=== PATIENT | male | born 1980 | race Caucasian/White ===

== ENCOUNTER → 2016-05-16 | Outpatient (CLI) | payer OTHER ==
[~2016-05-16] MED LIST: EFAVTAB PO; FLVHFA44 INH; METO-157 PO
[2016-05-16 11:59] LABS: BASO % 0.5 %; BASO ABS # 0.03 K/uL (0-0.2); COMPLETE YES; EOS % 2.7 %; HEMATOCRIT 48.1 % (42-52); IG% 0.2 %; LYMPH % 30.3 %; LYMPH ABS # 1.93 K/uL (1.2-3.4); MEAN CELL VOLUME 87.5 fL (80-100); MEAN CORPUSCULAR HGB CONC 34.3 g/dl (32-36); MEAN PLATELET VOLUME 10.4 fL (7.4-10.4); MONO % 4.7 %; NEUT % 61.6 %; PLATELET COUNT 207 K/uL (130-400); WHITE BLOOD COUNT 6.38 K/uL (4.8-10.8)
[2016-05-16 12:07] LABS: ALT/SGPT 78 U/L (12-78); AST/SGOT 40 U/L (15-37); BLOOD UREA NITROGEN 9 mg/dl (7-18); BUN/CREATININE RATIO 7.1 (10-20); CALCIUM 8.9 mg/dl (8.5-10.1); CARBON DIOXIDE 28 mmol/L (21-32); CHLORIDE 106 mmol/L (98-107); GLUCOSE 96 mg/dl (70-99); POTASSIUM 3.6 mmol/L (3.5-5.1); SODIUM 141 mmol/L (136-145)
[2016-05-16 12:10] LABS: ALB/GLOB RATIO 1.3 (0.9-2); ALKALINE PHOSPHATASE 141 U/L (45-117); CHOLESTEROL 175 mg/dl (0-200); CHOLESTEROL/HDL RATIO 4.6; HDL CHOLESTEROL 38 mg/dl; LDL CHOLESTEROL CALCULATED 96 mg/dl; TRIGLYCERIDES 207 mg/dl (0-150); VERY LOW DENSITY LIPOPROT CALC 41 mg/dl
[2016-05-19 06:38] LABS: LSP % CELLS ANALYZED CD4 35 % (30-61); LSP ABSOLUTE CT CD4 612 cells/uL (490-1740); LSP LYMPHOCYTES ABSOLUTE 1769 cells/uL (850-3900)
== END | disposition home or self-care (01) ==
LOC: C.LAB1850 10:49
PROVIDERS: ATTEND Internal Medicine Infectious Disease
DX: B20 Human immunodeficiency virus [HIV] disease (principal)

== ENCOUNTER → 2016-08-28 | Day surgery (SDC) | payer OTHER ==
[~2016-08-28] VITALS: Ht 182.9 cm; Wt 102.3 kg
[~2016-08-28] MED LIST changes: +LIDOCAINE HCL 2% 2 ML VIAL (20MG/ML) ONE; +PROPOFOL IV EMULSION 10 MG/ML 20 ML VIAL IV ONE
[2016-08-28 09:32] VITALS: Ht 182.9 cm; Wt 102.3 kg
--- NOTE | 2016-08-28 10:07 | Endo History and Physical ---
History & Physical Date of Service: August 28, 2016. Chief Complaint: dysphagia Referring Physician: no doctor assigned History of Present Illness dysphagia Past Surgical History Hx Cardiac Surgery: No Hx Internal Defibrillator: No Hx Pacemaker: No Hx Abdominal Surgery: Yes (gallbladder) Hx of Implantable Prosthesis: No Hx Post-Op Nausea and Vomiting: No Hx Cancer Surgery: No Hx Thoracic Surgery: No Hx Orthopedic: Yes (arthroscopy of knee) Hx Urinary Tract Surgery: No Social History Smoking Status: Never Smoker Hx Substance Use: No Hx Alcohol Use: No Allergies Coded Allergies: Naproxen (Verified Allergy, Mild, 08/28/16) Current Medications Reported Home Medications Medications Dose Route/Sig Max Daily Dose Days Date Category Atripla (Fxlhqbxre-Hmalywonngfxd-Qqdace) 1 Tab Tab 1 Tab PO HS 07/26/15 Reported Vital Signs Weight (Kilograms): 102.27 Height (Feet): 6 Height (Inches): 0 Date Time Temp Pulse Resp B/P Pulse Ox O2 Delivery O2 Flow Rate FiO2 08/28/16 09:43 36.6 88 20 156/99 97 Room Air Physical Exam General Appearance: no apparent distress Respiratory/Chest: Auscultation: breath sounds normal Cardiovascular: Heart Auscultation: RRR Abdomen: Bowel Sounds: normal Assessment and Plan EGD with dilation
--- NOTE | 2016-08-28 11:01 | Discharge Instructions ---
Endoscopy Patient Instructions Date / Procedure(s) Performed August 28, 2016. EGD Allergy Information Coded Allergies: Naproxen (Verified Allergy, Mild, 08/28/16) Discharge Date / Findings August 28, 2016. 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 - Do not drink alcohol the day of the procedure. - Do not drive a car or operate machinery until the day after the procedure. - Do not make any important decisions or sign important papers in 24 hours after the procedure. Following Day: - Return to full activity which may include returning to work/school. Diet Start your diet with liquids and light foods (jello, soup, juice, toast). Then eat your usual diet if not nauseated. Treatment For Common After Affects For mild abdominal pain, bloating, or excessive gas: - Rest - Eat lightly - Lie on right side Follow-Up Information Follow-up with no doctor assigned as scheduled Anesthesia Information What You Should Know You have had a procedure that required some medicine to reduce anxiety and discomfort. This treatment is called moderate sedation. After receiving the treatment, you may be sleepy, but you will be able to breathe on your own. The effects of the treatment may last for several hours. Follow these instructions along with Activity/Diet recommendations noted above: * Do NOT do anything where dizziness or clumsiness would be dangerous. * Rest quietly at home today, then you can be up and about tomorrow. * Have a responsible person stay with you the rest of today. * You may have had an I.V. today. If so, you may take the dressing off later today. Recommendations Call your doctor if: * Trouble breathing * Continuous vomiting for more than 24 hours * Temperature above 101 degrees * Severe abdominal pain or bloating * Pain not relieved by pain medicine ordered * There is increased drainage or redness from any incision * A large amount of rectal bleeding greater than 2-3 tablespoons. (If you had a polyp/s removed or have hemorrhoids, a small amount of blood - from the rectum is to be expected.) * You have any unanswered questions or concerns. IN THE EVENT OF A SERIOUS EMERGENCY, GO TO THE NEAREST EMERGENCY ROOM Your discharge instructions were prepared by provider Dionicio Choi. Patient Instructions Signature Page Saturnino Schmitz Patient (or Guardian) Signature/Date: I have read and understand the instructions given to me by my caregivers. Caregiver/RN/Doctor Signature/Date: The above-named patient and/or guardian has received patient instructions on this date. + Original Patient Signature Page (only) stays with chart. Please make copy for patient.
--- NOTE | 2016-08-28 11:04 | GI REPORT ---
Procedure Date: 08/28/2016 10:00 AM Procedure: Upper GI endoscopy Indications: Dysphagia Medicines: See the Anesthesia note for documentation of the administered medications Complications: No immediate complications. Estimated Blood Loss: Estimated blood loss: none. Procedure: Pre-Anesthesia Assessment: - ASA Grade Assessment: II - A patient with mild systemic disease. After obtaining informed consent, the endoscope was passed under direct vision. Throughout the procedure, the patient's blood pressure, pulse, and oxygen saturations were monitored continuously. The scope was introduced through the mouth, and advanced to the second part of duodenum. The upper GI endoscopy was accomplished without difficulty. The patient tolerated the procedure well. Findings: There were faint rings in the lower esophagus. The Z-line was found 42 cm from the incisors. There was a moderately tight stricture at the GE junction. There was moderate erythema and 2 erosions at the GE junction consistent with reflux. The stomach and small intestine were normal. A wire was placed and the scope was withdrawn. A 16 mm, 17mm, and 18 mm dilator was passed over the stricture with adequate trauma. Impression: - GE junction stricture, dilated. Recommendation: - BID PPI. Precautions for pill esophagitis. - Discharge patient to home. - Repeat EGD with dilation next week. Dionicio Royal M.D. Dionicio Royal MD 08/28/2016 11:05:33 AM This report has been signed electronically. Note Initiated On: 08/28/2016 10:00 AM I attest to the content of the Intraoperative Record and orders documented therein, exceptions below
[2016-08-28 11:11] VITALS: BP 138/95; PULSE 82; O2SAT 97
--- NOTE | 2016-08-28 11:19 | Anesthesiology Progress Note ---
Anesthesia Post Op Note Date & Time August 28, 2016 at 11:19 Vital Signs Pain Intensity: 0 Vital Signs Past 12 Hours Date Time Temp Pulse Resp B/P Pulse Ox O2 Delivery O2 Flow Rate FiO2 08/28/16 11:11 82 20 138/95 97 Room Air 08/28/16 10:55 88 20 141/95 96 Room Air 08/28/16 10:41 86 20 119/69 95 Room Air 08/28/16 09:43 36.6 88 20 156/99 97 Room Air Notes Mental Status: alert / awake / arousable, participated in evaluation Pt Amnestic to Procedure: Yes Nausea / Vomiting: adequately controlled Pain: adequately controlled Airway Patency, RR, SpO2: stable & adequate BP & HR: stable & adequate Hydration State: stable & adequate Anesthetic Complications: no major complications apparent
== END | disposition home or self-care (01) ==
LOC: C.GI 09:19
PROVIDERS: ATTEND Internal Medicine Gastroenterology
DX: R13.10 Dysphagia, unspecified (principal); K22.2 Esophageal obstruction; K22.8 Other specified diseases of esophagus; K22.10 Ulcer of esophagus without bleeding; Z98.890 Other specified postprocedural states

== ENCOUNTER → 2016-10-28 | Outpatient (CLI) | payer OTHER ==
[~2016-10-28] MED LIST changes: -LIDOCAINE HCL 2% 2 ML VIAL (20MG/ML) ONE; -PROPOFOL IV EMULSION 10 MG/ML 20 ML VIAL IV ONE
[2016-10-28 12:33] LABS: BASO % 0.4 %; BASO ABS # 0.03 K/uL (0-0.2); COMPLETE YES; EOS % 4.6 %; IG% 0.1 %; LYMPH % 36.1 %; LYMPH ABS # 2.44 K/uL (1.2-3.4); MEAN CELL VOLUME 88.3 fL (80-100); MEAN CORPUSCULAR HEMOGLOBIN 30.1 pg (25-34); MEAN CORPUSCULAR HGB CONC 34.1 g/dl (32-36); MEAN PLATELET VOLUME 10.3 fL (7.4-10.4); MONO % 5.9 %; NEUT % 52.9 %; PLATELET COUNT 219 K/uL (130-400); RED BLOOD COUNT 5.55 M/uL (4.7-6.1); WHITE BLOOD COUNT 6.76 K/uL (4.8-10.8)
[2016-10-28 12:45] LABS: ALT/SGPT 91 U/L (12-78); BLOOD UREA NITROGEN 11 mg/dl (7-18); BUN/CREATININE RATIO 9.5 (10-20); CALCIUM 9.5 mg/dl (8.5-10.1); CARBON DIOXIDE 26 mmol/L (21-32); CHLORIDE 107 mmol/L (98-107); CHOLESTEROL 199 mg/dl (0-200); GLUCOSE 103 mg/dl (70-99); SODIUM 141 mmol/L (136-145)
[2016-10-28 12:48] LABS: ALB/GLOB RATIO 1.2 (0.9-2); ALKALINE PHOSPHATASE 137 U/L (45-117); AST/SGOT 47 U/L (15-37); CHOLESTEROL/HDL RATIO 5.9; HDL CHOLESTEROL 34 mg/dl; LDL CHOLESTEROL CALCULATED 119 mg/dl; TRIGLYCERIDES 229 mg/dl (0-150); VERY LOW DENSITY LIPOPROT CALC 46 mg/dl
[2016-11-03 20:36] LABS: LSP % CELLS ANALYZED CD4 34 % (30-61); LSP ABSOLUTE CT CD4 790 cells/uL (490-1740); LSP LYMPHOCYTES ABSOLUTE 2341 cells/uL (850-3900)
== END | disposition home or self-care (01) ==
LOC: C.LAB1850 10:25
PROVIDERS: ATTEND Internal Medicine Infectious Disease
DX: B20 Human immunodeficiency virus [HIV] disease (principal)

== ENCOUNTER → 2017-01-03 | Day surgery (SDC) | payer OTHER ==
[2017-01-02 07:55] VITALS: Ht 182.9 cm; Wt 102.3 kg
[~2017-01-03] VITALS: Ht 182.9 cm; Wt 102.3 kg
[~2017-01-03] MED LIST changes: +LIDOCAINE HCL 2% 2 ML VIAL (20MG/ML) ONE; +PROPOFOL IV EMULSION 10 MG/ML 20 ML VIAL IV ONE; +SODIUM CHLORIDE 0.9% 500ML 500 ML IV ONE
--- NOTE | 2017-01-03 12:09 | Endo History and Physical ---
History & Physical Date of Service: Jan 03, 2017. Chief Complaint: dysphagia Referring Physician: Dr. Martín Medina History of Present Illness Dysphagia Past Surgical History Hx Cardiac Surgery: No Hx Internal Defibrillator: No Hx Pacemaker: No Hx Abdominal Surgery: Yes (gallbladder) Hx Post-Op Nausea and Vomiting: No Hx Cancer Surgery: No Hx Thoracic Surgery: No Hx Orthopedic: Yes (arthroscopy of knee) Hx Urinary Tract Surgery: No Family History None Social History Smoking Status: Never Smoker Hx Substance Use: No Hx Alcohol Use: No Allergies Coded Allergies: Naproxen (Verified Allergy, Mild, HEART RACED A LITTLE BIT, 01/02/17) Current Medications Reported Home Medications Medications Dose Route/Sig Max Daily Dose Days Date Category Flovent Hfa (Fluticasone Propionate) 120 Puffs/5280 Mcg Aero 4 Puffs INH BID 01/02/17 Reported Reglan (Metoclopramide HCl) 10 Mg Tab 10 Mg PO QAM 01/02/17 Reported Atripla (Ftusvwzel-Fhthogzwxdwch-Zjuekd) 1 Tab Tab 1 Tab PO HS 07/26/15 Reported Vital Signs Weight (Kilograms): 102.27 Height (Feet): 6 Height (Inches): 0 Date Time Temp Pulse Resp B/P (MAP) Pulse Ox O2 Delivery O2 Flow Rate FiO2 01/03/17 11:37 36.7 84 16 136/84 (101) 95 Room Air Physical Exam General Appearance: WD/WN, no apparent distress Respiratory/Chest: Auscultation: breath sounds normal Cardiovascular: Heart Auscultation: RRR Abdomen: Inspection & Palpation: soft Assessment and Plan Dysphagia - EGD
--- NOTE | 2017-01-03 13:05 | GI REPORT ---
Procedure Date: 01/03/2017 12:09 PM Procedure: Upper GI endoscopy Indications: Dysphagia; pt on BID PPI and Flovent 4 puffs BID. Medicines: See the Anesthesia note for documentation of the administered medications Complications: No immediate complications. Estimated Blood Loss: Estimated blood loss: none. Procedure: Pre-Anesthesia Assessment: - ASA Grade Assessment: III - A patient with severe systemic disease. After obtaining informed consent, the endoscope was passed under direct vision. Throughout the procedure, the patient's blood pressure, pulse, and oxygen saturations were monitored continuously. The Scope was introduced through the mouth, and advanced to the second part of duodenum. The upper GI endoscopy was accomplished without difficulty. Findings: There was stigmata of eosinophilic esophagitis in the lower esophagus, with furrows, rings, and white plaques. There was a ring at the GE junction at 40 cm. There was a small hiatal hernia. The stomach and duodenum were normal. A wire was placed and the scope was withdrawn. A 16 mm and 18 mm dilator was placed over the wire with an appropriate tear at the ring in the GEJ. Biopsies taken from lower esophagus. Recommendation: - If biopsies show persistent eosinophilia, consider increasing Flovent. - Discharge patient to home. Dionicio Royal M.D. Dionicio Royal MD 01/03/2017 1:05:06 PM This report has been signed electronically. Note Initiated On: 01/03/2017 12:09 PM I attest to the content of the Intraoperative Record and orders documented therein, exceptions below
--- NOTE | 2017-01-03 13:08 | Discharge Instructions ---
Endoscopy Patient Instructions Date / Procedure(s) Performed Jan 03, 2017. EGD Allergy Information Coded Allergies: Naproxen (Verified Allergy, Mild, HEART RACED A LITTLE BIT, 01/02/17) Discharge Date / Findings Jan 03, 2017. Eosinophilic esophagitis. Ring. Dilated, biopsied. Provider Instructions Activity Restrictions - No exercising or heavy lifting for 24 hours. - Do not drink alcohol the day of the procedure. - Do not drive a car or operate machinery until the day after the procedure. - Do not make any important decisions or sign important papers in 24 hours after the procedure. Following Day: - Return to full activity which may include returning to work/school. Diet Start your diet with liquids and light foods (jello, soup, juice, toast). Then eat your usual diet if not nauseated. Treatment For Common After Affects For mild abdominal pain, bloating, or excessive gas: - Rest - Eat lightly - Lie on right side Follow-Up Information Follow-up with Dr. Martín Medina as scheduled Anesthesia Information What You Should Know You have had a procedure that required some medicine to reduce anxiety and discomfort. This treatment is called moderate sedation. After receiving the treatment, you may be sleepy, but you will be able to breathe on your own. The effects of the treatment may last for several hours. Follow these instructions along with Activity/Diet recommendations noted above: * Do NOT do anything where dizziness or clumsiness would be dangerous. * Rest quietly at home today, then you can be up and about tomorrow. * Have a responsible person stay with you the rest of today. * You may have had an I.V. today. If so, you may take the dressing off later today. Recommendations Call your doctor if: * Trouble breathing * Continuous vomiting for more than 24 hours * Temperature above 101 degrees * Severe abdominal pain or bloating * Pain not relieved by pain medicine ordered * There is increased drainage or redness from any incision * A large amount of rectal bleeding greater than 2-3 tablespoons. (If you had a polyp/s removed or have hemorrhoids, a small amount of blood - from the rectum is to be expected.) * You have any unanswered questions or concerns. IN THE EVENT OF A SERIOUS EMERGENCY, GO TO THE NEAREST EMERGENCY ROOM Your discharge instructions were prepared by provider Dionicio Choi. Patient Instructions Signature Page Saturnino Schmitz Patient (or Guardian) Signature/Date: I have read and understand the instructions given to me by my caregivers. Caregiver/RN/Doctor Signature/Date: The above-named patient and/or guardian has received patient instructions on this date. + Original Patient Signature Page (only) stays with chart. Please make copy for patient.
[2017-01-03 13:28] VITALS: BP 111/73; PULSE 82; O2SAT 95
--- NOTE | 2017-01-03 14:20 | Anesthesiology Progress Note ---
Anesthesia Post Op Note Date & Time Jan 03, 2017 at 14:20 Vital Signs Pain Intensity: 0 Vital Signs Past 12 Hours Date Time Temp Pulse Resp B/P (MAP) Pulse Ox O2 Delivery O2 Flow Rate FiO2 01/03/17 13:28 82 16 111/73 (86) 95 Room Air 01/03/17 13:13 86 16 104/68 (80) 96 Room Air 01/03/17 12:58 99 16 115/68 (84) 92 Room Air 01/03/17 11:37 36.7 84 16 136/84 (101) 95 Room Air Notes Mental Status: alert / awake / arousable, participated in evaluation Pt Amnestic to Procedure: Yes Nausea / Vomiting: adequately controlled Pain: adequately controlled Airway Patency, RR, SpO2: stable & adequate BP & HR: stable & adequate Hydration State: stable & adequate Anesthetic Complications: no major complications apparent
== END | disposition home or self-care (01) ==
LOC: C.GI 11:12
PROVIDERS: ATTEND Internal Medicine Gastroenterology
DX: R13.10 Dysphagia, unspecified (principal); K44.9 Diaphragmatic hernia without obstruction or gangrene; B20 Human immunodeficiency virus [HIV] disease; Z98.890 Other specified postprocedural states; Z68.31 Body mass index [BMI] 31.0-31.9, adult

== ENCOUNTER → 2017-04-10 | Outpatient (CLI) | payer OTHER ==
[~2017-04-10] MED LIST changes: -LIDOCAINE HCL 2% 2 ML VIAL (20MG/ML) ONE; -PROPOFOL IV EMULSION 10 MG/ML 20 ML VIAL IV ONE; -SODIUM CHLORIDE 0.9% 500ML 500 ML IV ONE
[2017-04-10 11:26] LABS: BASO % 0.5 %; BASO ABS # 0.04 K/uL (0-0.2); EOS % 7.5 %; EOS ABS # 0.64 K/uL (0-0.5); HEMOGLOBIN 16.8 g/dL (14.0-18.0); IG# 0.02 K/uL (0.00-0.02); LYMPH % 27.6 %; LYMPH ABS # 2.35 K/uL (1.2-3.4); MEAN CELL VOLUME 88.2 fL (80-100); MEAN CORPUSCULAR HEMOGLOBIN 30.9 pg (25-34); MEAN PLATELET VOLUME 10.6 fL (7.4-10.4); MONO % 6.3 %; MONO ABS # 0.54 K/uL (0.11-0.59); NEUT % 57.9 %; NEUT ABS # 4.92 K/uL (1.4-6.5); PLATELET COUNT 212 K/uL (130-400); RED CELL DISTRIBUTION WIDTH CV 13.2 % (11.5-14.5); WHITE BLOOD COUNT 8.51 K/uL (4.8-10.8)
[2017-04-10 15:52] LABS: ALBUMIN 4.3 gm/dl (3.4-5.0); ALKALINE PHOSPHATASE 138 U/L (45-117); AST/SGOT 55 U/L (15-37); BLOOD UREA NITROGEN 10 mg/dl (7-18); CALCIUM 9.7 mg/dl (8.5-10.1); CARBON DIOXIDE 28 mmol/L (21-32); CHOLESTEROL 184 mg/dl (0-200); CREATININE 1.13 mg/dl (0.60-1.40); GLUCOSE 89 mg/dl (70-99); SODIUM 139 mmol/L (136-145); TOTAL PROTEIN 8.3 gm/dl (6.4-8.2)
[2017-04-10 15:55] LABS: ALT/SGPT 99 U/L (12-78); LDL CHOLESTEROL CALCULATED 91 mg/dl
[2017-04-12 20:33] LABS: LSP % CELLS ANALYZED CD4 35 % (30-61); LSP ABSOLUTE CT CD4 811 cells/uL (490-1740)
== END | disposition home or self-care (01) ==
LOC: C.LAB 10:15
PROVIDERS: ATTEND Internal Medicine Infectious Disease
DX: B20 Human immunodeficiency virus [HIV] disease (principal)

== ENCOUNTER 2019-12-12 10:11 | Inpatient (IN) ==
[2019-12-12] MEDS ORDERED: KETOROLAC 30 MG/ML VIAL IV ONE (11:12)
[2019-12-12] MEDS ORDERED: HYDROmorphone INJ 1 MG/ML SYRINGE IV STA (11:12)
[2019-12-12] MEDS ORDERED: SODIUM CHLORIDE 0.9% 1000ML 2,000 ML IV ONE (11:12)
[2019-12-12] MEDS ORDERED: ONDANSETRON INJ 2 MG/ML 2 ML VIAL IV STA (11:12)
[2019-12-12 11:19] LABS: Hemoglobin 15.9 g/dL (14.0-18.0); White Blood Count 10.63 K/uL (4.8-10.8)
[2019-12-12 11:20] LABS: Eosinophils # (auto) 0.06 K/uL (0-0.5); Eosinophils % (auto) 0.6 %; Hematocrit (blood only) 46.7 % (42-52); Immature Granulocytes # (auto) 0.02 K/uL (0.00-0.02); Immature Granulocytes % (auto) 0.2 %; Lymphocytes % (auto) 11.3 %; Mean Corpuscular Hemoglobin 31.2 pg (25-34); Mean Corpuscular Volume 91.6 fL (80-100); Mean Platelet Volume 10.4 fL (7.4-10.4); Monocytes # (auto) 0.56 K/uL (0.11-0.59); Monocytes % (auto) 5.3 %; Neutrophils # (auto) 8.79 K/uL (1.4-6.5); Neutrophils % (auto) 82.6 %; Platelet Count 206 K/uL (130-400); RDW Standard Deviation 43.9 fL (36.4-46.3)
[2019-12-12 11:26] LABS: BUN Creatinine Ratio 7.3 (10-20); Creatinine Clr Calc Pharmacy 69.2 ml/min; Est GFR (African American) 54.8; Est GFR (Non-African American) 47.3; Potassium 4.2 mmol/L (3.5-5.1)
--- NOTE | 2019-12-12 11:28 | Emergency Department Note ---
History of Present Illness General Chief complaint: Kidney Stone Stated complaint: RT SIDED KIDNEY STONE Time Seen by Provider: 12/12/19 11:01 History of Present Illness Maximum Pain Intensity: 8 This patient is a 39-year-old male who presents emergency department complaining of worsening right-sided, sharp, stabbing abdominal pain that is worse with any movement. The patient was seen in the emergency department last night and diagnosed with a right-sided kidney stone. He was sent home with oxycodone, which has not been helping with the pain. The patient also reports feeling clam my and having one episode of vomiting this morning. He denies any hematuria. No history of kidney stones. Home Medications Home Medications Medication Instructions Recorded Confirmed Type sildenafil 50 mg tablet 50 mg PO DAILY PRN #10 tab 01/26/19 12/12/19 Rx dextroamphetamine-amphetamine ER 20 mg PO DAILY #30 cap 03/09/19 12/12/19 Rx 20 mg 24hr capsule,extend release bictegravir 50 mg-emtricitabine 1 tab PO DAILY #90 tab 06/02/19 12/12/19 Rx 200 mg-tenofovir alafenam 25 mg tablet adalimumab [Humira Pen] 40 mg SUBCUT UD 12/12/19 12/12/19 History ondansetron 4 mg PO Q4H PRN #8 tab 12/12/19 12/12/19 Rx oxycodone 5 - 10 mg PO Q4H PRN #14 tab 12/12/19 12/12/19 Rx Allergies Allergy/AdvReac Type Severity Reaction Status Date / Time naproxen Allergy Mild HEART Verified 12/12/19 00:35 RACED A LITTLE BIT Past Med/Surg History Medical History HIV (human immunodeficiency virus infection) Social History Smoking Status: Never smoker Preferred Language: Uzbek Feels Safe at Home: Yes Review of Systems A total of 10 systems reviewed and were otherwise negative Physical Exam Vital Signs Vital Signs - 24 hr 12/12/19 10:29 12/12/19 10:47 12/12/19 10:49 Temperature 36.6 C Temperature Source Oral Pulse Rate 91 H 87 89 Pulse Rhythm Regular Pulse Strength Normal Respiratory Rate 18 22 20 Respiratory Effort / Characteristics Non-Labored Spontaneous Respiratory Depth Normal Respiratory Pattern Regular Blood Pressure 139/66 127/92 Blood Pressure Mean 90 107 Blood Pressure Position Sitting Pulse Oximetry 97 Oxygen Delivery Method Room Air Sepsis Recent Fever Within 48 Hours No Sepsis New/Unexplained Change in Mental Status N/A Sepsis Action Taken by Nursing No Action Required 12/12/19 11:00 12/12/19 11:01 12/12/19 12:09 Temperature Temperature Source Pulse Rate 79 79 89 Pulse Rhythm Pulse Strength Respiratory Rate 15 22 15 Respiratory Effort / Characteristics Respiratory Depth Respiratory Pattern Blood Pressure 141/100 H 124/78 Blood Pressure Mean 110 90 Blood Pressure Position Pulse Oximetry Oxygen Delivery Method Sepsis Recent Fever Within 48 Hours Sepsis New/Unexplained Change in Mental Status Sepsis Action Taken by Nursing 12/12/19 12:10 12/12/19 12:30 12/12/19 12:31 Temperature Temperature Source Pulse Rate 85 85 97 H Pulse Rhythm Pulse Strength Respiratory Rate 20 16 16 Respiratory Effort / Characteristics Respiratory Depth Respiratory Pattern Blood Pressure 121/74 Blood Pressure Mean 87 Blood Pressure Position Pulse Oximetry Oxygen Delivery Method Sepsis Recent Fever Within 48 Hours Sepsis New/Unexplained Change in Mental Status Sepsis Action Taken by Nursing 12/12/19 12:59 12/12/19 13:01 12/12/19 13:30 Temperature Temperature Source Pulse Rate 91 H 88 83 Pulse Rhythm Pulse Strength Respiratory Rate 21 22 20 Respiratory Effort / Characteristics Respiratory Depth Respiratory Pattern Blood Pressure 142/93 H 122/76 Blood Pressure Mean 109 88 Blood Pressure Position Pulse Oximetry Oxygen Delivery Method Sepsis Recent Fever Within 48 Hours Sepsis New/Unexplained Change in Mental Status Sepsis Action Taken by Nursing 12/12/19 13:31 12/12/19 14:00 12/12/19 14:01 Temperature Temperature Source Pulse Rate 85 93 H 79 Pulse Rhythm Pulse Strength Respiratory Rate 26 H 17 15 Respiratory Effort / Characteristics Respiratory Depth Respiratory Pattern Blood Pressure 117/96 Blood Pressure Mean 102 Blood Pressure Position Pulse Oximetry Oxygen Delivery Method Sepsis Recent Fever Within 48 Hours Sepsis New/Unexplained Change in Mental Status Sepsis Action Taken by Nursing 12/12/19 14:30 12/12/19 14:31 12/12/19 15:00 Temperature Temperature Source Pulse Rate 79 103 H 67 Pulse Rhythm Pulse Strength Respiratory Rate 23 21 Respiratory Effort / Characteristics Respiratory Depth Respiratory Pattern Blood Pressure 115/86 Blood Pressure Mean 94 Blood Pressure Position Pulse Oximetry Oxygen Delivery Method Sepsis Recent Fever Within 48 Hours Sepsis New/Unexplained Change in Mental Status Sepsis Action Taken by Nursing Constitutional WD/WN, vitals as above In obvious discomfort. Eyes EOM intact bilaterally ENMT external ear and nose normal, oropharynx normal Neck trachea midline Respiratory normal respiratory effort, lungs clear to auscultation Cardiovascular RRR, no murmur, no edema Gastrointestinal (Abdomen) normal bowel sounds, soft, nontender, no hepatosplenomegaly Tenderness palpation over the right lower quadrant without any guarding or rebound tenderness. Bowel sounds present in all 4 quadrants. Musculoskeletal no cyanosis or clubbing, extremities motor strength 5/5 Skin no rashes, warm and dry Neurologic Alert and oriented x3. No focal motor deficits. Psychiatric Acting appropriately Course Course Patient was seen and examined Vital signs including blood pressure were reviewed medications list was verified with patient Labs were obtained, and a saline lock was established Pain medications and imaging were ordered Upon reevaluation, the patient said that his pain was better, however he was still nauseated. He was ordered Phenergan for nausea. We reviewed his results. He voiced understanding and was comfortable with the disposition. The case was discussed with urology and the hospitalist. They kindly agreed to evaluate the patient for likely inpatient management. Consultations Consultation #1: Dr. العراقي Consultation #2: [facility] hospitalist Administered Medications Discontinued Medications Hydromorphone HCl (Hydromorphone Inj 1 Mg/Ml Syringe) 1 mg IV NOW STA Stop: 12/12/19 11:13 Last Admin: 12/12/19 11:21 Dose: 1 mg Documented by: [id number] Sodium Chloride (Nss 1000ml) 2,000 mls @ 999 mls/hr IV .Q2H1M ONE Stop: 12/12/19 13:12 Last Infusion: 12/12/19 13:22 Dose: 0 mls/hr Documented by: [id number] Admin: 12/12/19 11:20 Dose: 999 mls/hr Documented by: [id number] Promethazine HCl (Phenergan) 12.5 mg in 50.5 mls @ 202 mls/hr IV NOW STA Stop: 12/12/19 13:56 Last Infusion: 12/12/19 14:06 Dose: 0 mls/hr Documented by: [id number] Admin: 12/12/19 13:51 Dose: 202 mls/hr Documented by: [id number] Ketorolac Tromethamine (Ketorolac 30 Mg/Ml Vial) 30 mg IV NOW ONE Stop: 12/12/19 11:13 Last Admin: 12/12/19 11:20 Dose: 30 mg Documented by: [id number] Ondansetron HCl (Ondansetron Inj 2 Mg/Ml 2 Ml Vial) 4 mg IV NOW STA Stop: 12/12/19 11:13 Last Admin: 12/12/19 11:21 Dose: 4 mg Documented by: [id number] Pantoprazole Sodium (Pantoprazole 40 Mg Tab) 40 mg PO NOW STA Stop: 12/12/19 14:28 Last Admin: 12/12/19 14:41 Dose: 40 mg Documented by: [id number] Tamsulosin HCl (Tamsulosin Hcl 0.4 Mg Cap) 0.4 mg PO NOW ONE Stop: 12/12/19 14:05 Last Admin: 12/12/19 14:41 Dose: 0.4 mg Documented by: [id number] Medical Decision Making Medical Records Attestation: I reviewed the patient's medical records. Home Medications Current Medication List: was personally reviewed by me Laboratory Data Attestation: I reviewed the patient's lab results. Result diagrams: 12/12/19 10:45 12/12/19 10:45 Lab Results 12/12/19 12/12/19 12/12/19 Range/Units 10:45 10:45 12:49 WBC 10.63 (4.8-10.8) K/uL RBC 5.10 (4.7-6.1) M/uL Hgb 15.9 (14.0-18.0) g/dL Hct 46.7 (42-52) % MCV 91.6 (80-100) fL MCH 31.2 (25-34) pg MCHC 34.0 (32-36) g/dL RDW Std Deviation 43.9 (36.4-46.3) fL RDW Coeff of Juan Jose 13.0 (11.5-14.5) % Plt Count 206 (130-400) K/uL MPV 10.4 (7.4-10.4) fL Immature Gran % (Auto) 0.2 % Neut % (Auto) 82.6 % Lymph % (Auto) 11.3 % [place] % (Auto) 5.3 % Eos % (Auto) 0.6 % Baso % (Auto) 0.0 % Neut # (Auto) 8.79 H (1.4-6.5) K/uL Lymph # (Auto) 1.20 (1.2-3.4) K/uL [place] # (Auto) 0.56 (0.11-0.59) K/uL Eos # (Auto) 0.06 (0-0.5) K/uL Baso # (Auto) 0.00 (0-0.2) K/uL Immature Gran # (Auto) 0.02 (0.00-0.02) K/uL Sodium 142 (136-145) mmol/L Potassium 4.2 (3.5-5.1) mmol/L Chloride 108 H (98-107) mmol/L Carbon Dioxide 27 (21-32) mmol/L Anion Gap 7.0 (3-11) BUN 13 (7-18) mg/dl Creatinine 1.76 H (0.6-1.4) mg/dl Est Cr Clr Drug Dosing 69.2 ml/min Est GFR ( Amer) 54.8 Est GFR (Non-Af Amer) 47.3 BUN/Creatinine Ratio 7.3 L (10-20) Glucose 138 H (70-99) mg/dl Calcium 9.0 (8.5-10.1) mg/dl Urine Color Yellow Urine Appearance Clear (Clear) Urine pH 7.0 (4.5-7.5) Ur Specific [place] 1.013 (1.000-1.030) Urine Protein Negative (Negative) Urine Glucose (UA) Negative (Negative) Urine Ketones Trace H (Negative) Urine Blood 1+ H (Negative) Urine Nitrite Negative (Negative) Urine Bilirubin Negative (Negative) Urine Urobilinogen Negative (Negative) Ur Leukocyte Esterase Negative (Negative) Urine WBC (Auto) 1-5 (0-5) /hpf Urine RBC (Auto) 0-4 (0-4) /hpf U Hyaline Cast (Auto) 5-10 H (0-5) /lpf U Epithel Cells (Auto) 5-10 H (0-5) /lpf Urine Bacteria (Auto) Negative (Negative) Imaging Data Attestation: I personally reviewed and interpreted this imaging study as follows: Radiologist's Impression: X-ray KUB IMPRESSION: Unchanged positioning of the 5 mm right ureteral calculus projected over the transverse process of L2. ACT 112: Negative or not required by law. The above report was generated using voice recognition software. It may contain grammatical, syntax or spelling errors. Electronically signed by: Marvin Rodriguez M.D. 12/12/2019 11:37 AM Dictated: 12/12/19 1136 Transcribed: 12/12/[address] [facility] Narrative This patient is a 39-year-old male who presents the emergency department with ongoing flank pain. The patient was seen in the emergency department yesterday and diagnosed with a right-sided kidney stone. Unfortunately, the patient has not done well at home with oral medications. He continues to have pain and nausea. He was uncomfortable on exam. His vital signs were stable. His creatinine however has slightly elevated. Urine does not appear to be infected. After several rounds of pain medication and nausea medication, the patient was still not feeling much better. For this reason, urology in addition to the hospitalist were consulted. They will evaluate the patient for likely inpatient management. Impression & Plan Ureteral calculi Discharge Plan Visit Data Chief Complaint: Kidney Stone Stated Complaint: RT SIDED KIDNEY STONE ED Provider: Brian Rivero ED Midlevel Provider: Joanne Arguello Discharge Problem: Ureteral calculi Patient Disposition: Admitted As Inpatient Condition: Fair Discharge Instructions Interventions: ED Discharge Assessment Last Done: 12/12/19 15:29 Forms Stand Alone Forms: [employer] Prescriptions Prescriptions: No Action sildenafil [Viagra] 50 mg tablet 50 mg PO DAILY PRN (Reason: sexual activity) Qty: 10 RF: 0 Biktarvy 50-200-25 mg tablet 1 tab PO DAILY Qty: 90 RF: 3 dextroamphetamine-amphetamine [Adderall XR] 20 mg capsule,extended release 24hr 20 mg PO DAILY Qty: 30 RF: 0 Humira Pen 40 mg/0.8 mL pen injector kit 40 mg SUBCUT UD RF: 0 ondansetron 4 mg tablet,disintegrating 4 mg PO Q4H PRN (Reason: nausea and vomiting) Qty: 8 RF: 0 oxycodone 5 mg tablet 5 - 10 mg PO Q4H PRN (Reason: pain) Qty: 14 RF: 0 Referrals Referrals: Martín Medina DO [Primary Care Provider] -
--- NOTE | 2019-12-12 11:39 | XRay Report ---
KUB HISTORY: Follow up study in a patient with history of kidney stones Right ureteral stone COMPARISON: CT abdomen and pelvis 12/12/2019 FINDINGS: The bowel gas pattern is non-obstructive. There is no organomegaly. Unchanged 5 mm calculu s of the right ureter projected over the transverse process of L2. Renal shadows are obscured by kale l gas. Cholecystectomy. No pneumoperitoneum or pneumatosis. No fracture. IMPRESSION: Unchanged positioning of the 5 mm right ureteral calculus projected over the transverse process of L2 . ACT 112: Negative or not required by law. The above report was generated using voice recognition software. It may contain grammatical, syntax o r spelling errors. Electronically signed by: Marvin Rodriguez M.D. 12/12/2019 11:37 AM
[2019-12-12 13:07] LABS: Appearance Urine Clear (Clear); Bacteria Urine Automated Negative (Negative); Bilirubin Urine Negative (Negative); Blood Urine 1+ (Negative); Color Urine Yellow; Glucose Urine UA Negative (Negative); Ketones Urine Trace (Negative); Leukocyte Esterase Urine Negative (Negative); Nitrite Urine Negative (Negative); Protein Urine Negative (Negative); RBC Urine Automated 0-4 /hpf (0-4); Specific Gravity Urine 1.013 (1.000-1.030); Urobilinogen Urine Negative (Negative)
[2019-12-12] MEDS ORDERED: PROMETHAZINE 12.5 MG/50.5 ML BAG IV STA (13:42)
[2019-12-12] MEDS ORDERED: ACETAMINOPHEN 325 MG TAB PO PRN (14:00)
[2019-12-12] MEDS ORDERED: TAMSULOSIN HCL 0.4 MG CAP PO ONE (14:04)
--- NOTE | 2019-12-12 14:08 | History & Physical Report ---
Date of Service December 12, 2019 Assessment & Plan (1) Ureterolithiasis: Bilateral kidney stones with right hydronephrosis from the right ureteral stone -This is a male who presented to Emergency room on 12/11/2019 for right sided abdominal pain and subsequently found to have bilateral kidney stones with culprit cause of symptoms as the right ureteral stone causing mild hydronephrosis. Patient denies fevers at home and no other Gastrointestinal symptoms at that time. He was sent home from the ED on 12/11/2019 with analgesics so that he can pass the righter ureteral stone at home. But he returns to the ED on 12/12/2019 after vomiting. On review of systems, no chest pain, no shortness of breath, patient does not take any home inhalers recently, no dizziness. no headache. ED provider contacted [facility] urology. His urine analysis is negative for bacteria but since patient has history of HIV and may be eventually a candidate for cystoscopy with ureteral stent, hospitalist take will start empiric ceftriaxone. -12/11/2019 CT abdomen: Mild right-sided hydroureteronephrosis secondary to a 5 x 4 x 4 mm calculus of the proximal right ureter just distal to the ureteropelvic junction at the level of the superior endplate L3. Nonobstructing left nephrolithiasis. -KUB 12/12/2019 Unchanged positioning of the 5 mm right ureteral calculus projected over the transverse process of L2 -give IV fluids, and tamsulosin, strain the urine -ED provider contacted [facility] urology but likely no acute surgical interventions on 12/11/2001 so patient will be allowed a diet on 12/12/2019 and then NPO after midnight. start empiric ceftriaxone because of possibly urology procedure in a patient with HIV despite no bacteria in urine. will (2) Abdominal pain, right lower quadrant: -secondary to right ureteral kidney stone, pain started on 12/11/2019 -prn pain medications of acetaminophen, oxycodone, morphine based on pain severity -prn anti-emetics -12/11/2019 CT abdomen also had incidental findings -patient denies diarrhea or problems with bowel movements -continue protonics History of esophageal dilation -procedure performed on 12/09/[address] [facility] [address] Royal as outpatient. send blood culture on 12/12/2019 in context of malaise and history of HIV (3) HIV (human immunodeficiency virus infection): -diagnosed more than 10 years ago and follows with [facility] Infectious disease in [place] -continue home medication of Iwvmeegbedr-qadcsvyzwwpgk-phzdbszfx (50-5200-25 MG) Rheumatoid Arthritis -patient takes Humira subcutenously once every 14 days and lasy injection on 11/19/2019, follows with [facility] rheumatology clinic -patient no longer have been on methylprednisone or Nabumetone DVT prophylaxis: SCDs while in the hospital Full Code Status My colleague hospitalist Dr. Carreon will be managing the patient's health in the hospital starting on 12/13/2019 History of Present Illness This is a male who presented to Emergency room on 12/11/2019 for right sided abdominal pain and subsequently found to have bilateral kidney stones with culprit cause of symptoms as the right ureteral stone causing mild hydronephrosis. Patient denies fevers at home and no other Gastrointestinal symptoms at that time. He was sent home from the ED on 12/11/2019 with analgesics so that he can pass the righter ureteral stone at home. But he returns to the ED on 12/12/2019 after vomiting. On review of systems, no chest pain, no shortness of breath, patient does not take any home inhalers recently, no dizziness. no headache. ED provider contacted [facility]. His urine analysis is negative for bacteria but since patient has history of HIV and may be eventually a candidate for cystoscopy with ureteral stent, hospitalist take will start empiric ceftriaxone. Family History: patient denies family history of health problems Primary Care Provider: Martín Medina DO Allergies Allergy/AdvReac Type Severity Reaction Status Date / Time naproxen Allergy Mild HEART Verified 12/12/19 00:35 RACED A LITTLE BIT Home Medications Home Medications Medication Instructions Recorded Confirmed Type sildenafil 50 mg tablet 50 mg PO DAILY PRN #10 tab 01/26/19 12/12/19 Rx dextroamphetamine-amphetamine ER 20 mg PO DAILY #30 cap 03/09/19 12/12/19 Rx 20 mg 24hr capsule,extend release bictegravir 50 mg-emtricitabine 1 tab PO DAILY #90 tab 06/02/19 12/12/19 Rx 200 mg-tenofovir alafenam 25 mg tablet adalimumab [Humira Pen] 40 mg SUBCUT UD 12/12/19 12/12/19 History ondansetron 4 mg PO Q4H PRN #8 tab 12/12/19 12/12/19 Rx oxycodone 5 - 10 mg PO Q4H PRN #14 tab 12/12/19 12/12/19 Rx Past Med/Surg History Medical History HIV (human immunodeficiency virus infection) Social History Smoking Status: Never smoker Preferred Language: Welsh Feels Safe at Home: Yes Review of Systems Review of Systems: All systems reviewed & are unremarkable except as noted in Subjective Physical Exam Constitutional: comfortable Eyes: PERRL, conjunctivae normal, anicteric sclerae EOM intact bilaterally ENMT: external ear and nose normal, oropharynx normal Neck: trachea midline, no thyromegaly normal visual inspection Respiratory: normal respiratory effort, lungs clear to auscultation normal respiratory effort Cardiovascular: RRR, no murmur, no edema Gastrointestinal (Abdomen): Inspection/Auscultation: abdomen normal to inspection and normal bowel sounds Percussion/Palpation: abdomen soft Musculoskeletal: Head/Neck/Chest: normocephalic and head atraumatic Neurologic: PERRL, EOMI, accommodation nl, no face palsy, no dysarthria CN's II-XI intact bilaterally Psychiatric: A+Ox3, euthymic affect Results & Data Results & Data ([facility]) Vital Signs (Past 12 Hours) Vital Signs Temp Pulse Resp BP Pulse Ox 12/12/19 12:31 97 H 16 12/12/19 12:30 85 16 121/74 12/12/19 12:10 85 20 12/12/19 12:09 89 15 124/78 12/12/19 11:01 79 22 12/12/19 11:00 79 15 141/100 H 12/12/19 10:49 89 20 12/12/19 10:47 87 22 127/92 12/12/19 10:29 36.6 C 91 H 18 139/66 97 Code Status & VTE Plan VTE Prophylaxis Plan VTE Prophylaxis will be ordered: Yes
[2019-12-12] MEDS ORDERED: PANTOprazole 40 MG TAB PO STA (14:27)
[2019-12-12] MEDS: SODIUM CHLORIDE 0.9% 1000ML 1,000 ML IV SCH (17:26)
[2019-12-12] MEDS: cefTRIAXone SODIUM 2,000 MG in DEXTROSE 5% 50 ML IV SCH (17:26)
[2019-12-12] MEDS: MoRPHine SULFATE 2 MG/ML CARP IV PRN (18:58)
[2019-12-12] MEDS: PANTOprazole 40 MG TAB PO SCH (20:48)
[2019-12-13] MEDS: OXYCODONE HCL IR 5 MG TAB (IMMEDIATE RELEASE) PO PRN (00:13)
[2019-12-13] MEDS: MoRPHine SULFATE 2 MG/ML CARP IV PRN ×2 (01:16→07:43)
[2019-12-13] MEDS: SODIUM CHLORIDE 0.9% 1000ML 1,000 ML IV SCH ×2 (02:14→09:41)
[2019-12-13 07:41] LABS: Hemoglobin 13.5 g/dL (14.0-18.0); Mean Corpuscular Hemoglobin 29.7 pg (25-34); Mean Corpuscular Volume 92.3 fL (80-100); Mean Platelet Volume 10.3 fL (7.4-10.4); Platelet Count 186 K/uL (130-400); RDW Coefficient of Variation 13.2 % (11.5-14.5); RDW Standard Deviation 44.8 fL (36.4-46.3); Red Blood Count 4.55 M/uL (4.7-6.1); White Blood Count 6.57 K/uL (4.8-10.8)
[2019-12-13] MEDS: ONDANSETRON INJ 2 MG/ML 2 ML VIAL IV PRN (07:43)
[2019-12-13] MEDS: PANTOprazole 40 MG TAB PO SCH ×2 (07:44→20:42)
[2019-12-13 07:58] LABS: Mean Corpuscular Hgb Conc 32.1 g/dL (32-36)
[2019-12-13 08:20] LABS: Calcium 7.6 mg/dl (8.5-10.1); Creatinine Clr Calc Pharmacy 92.3 ml/min; Est GFR (African American) 77.7; Potassium 3.7 mmol/L (3.5-5.1)
[2019-12-13] MEDS: AMPHETAMINE ASP/SULF/DEXTRAMPH ER 20 MG CAP PO SCH (08:45)
[2019-12-13] MEDS ORDERED: BIKTARVY PO SCH (09:00)
--- NOTE | 2019-12-13 09:53 | Urology Consultation ---
Date of Consultation December 13, 2019 Assessment & Plan (1) Ureterolithiasis: 4 mm right proximal ureteral calculus Currently feeling okay Discussed options of immediate cystoscopy and stent placement with requirement for second surgery in 1 to 2 weeks to definitively treat the stone versus cystoscopy and ureteroscopy tomorrow with the hope of treating the stone in a solitary surgery He feels that his symptoms are well enough controlled but he would prefer to have a single surgery rather than 2 and would like to wait until tomorrow In the meantime we will continue to try to pass the stone spontaneously Continue IV fluid and pain control N.p.o. after midnight in preparation for the OR tomorrow History of Present Illness Attending Physician: Deepa Looney MD History of Present Illness 39-year-old male in generally good health who presented to the emergency room on Friday night secondary to severe right flank pain and associated nausea Found to have a small stone in the proximal ureter at that time He was discharged home but ultimately returned yesterday with a second round of severe pain He has continued to have intermittent symptoms overnight Currently feels his pain is under control with medications but is fearful of a repeat bout of severe discomfort No personal history of kidney stones No family history of kidney stones Allergies Allergy/AdvReac Type Severity Reaction Status Date / Time naproxen Allergy Mild HEART Verified 12/12/19 00:35 RACED A LITTLE BIT Home Medications Home Medications Medication Instructions Recorded Confirmed Type sildenafil 50 mg tablet 50 mg PO DAILY PRN #10 tab 01/26/19 12/12/19 Rx dextroamphetamine-amphetamine ER 20 mg PO DAILY #30 cap 03/09/19 12/12/19 Rx 20 mg 24hr capsule,extend release bictegravir 50 mg-emtricitabine 1 tab PO DAILY #90 tab 06/02/19 12/12/19 Rx 200 mg-tenofovir alafenam 25 mg tablet adalimumab [Humira Pen] 40 mg SUBCUT UD 12/12/19 12/12/19 History ondansetron 4 mg PO Q4H PRN #8 tab 12/12/19 12/12/19 Rx oxycodone 5 - 10 mg PO Q4H PRN #14 tab 12/12/19 12/12/19 Rx Patient History Medical History HIV (human immunodeficiency virus infection) Surgical History (Updated 12/13/19 @ 09:52 by Faustino العراقي MD) History of cholecystectomy Family History (Updated 12/13/19 @ 09:52 by Faustino العراقي MD) Denies family history of Kidney disease Social History Smoking Status: Never smoker Do You Dip or Chew Tobacco: No; Hx Alcohol Use: No Hx Substance Use: No Preferred Language: Estonian Communication Ability: Effective Primary Health Organisation Manager Required: No Beliefs That Will Affect Care: None Current Living Situation: Significant Other Other Information That Helps Us Care for You: No Feels Safe at Home: Yes Safety Concerns: Feels Safe At This Time Review of Systems Constitutional: no fever, no chills and no fatigue Eyes: no worsening vision Ear, Nose, Mouth, Throat: no facial pain and no pain with swallowing Respiratory: no cough and no dyspnea Cardiovascular: no chest pain and no palpitations Gastrointestinal: + abdominal pain and + nausea; no vomiting Genitourinary: + problem reported Musculoskeletal: no back pain Integumentary: no rash and no urticaria Neurologic: no gait abnormality and no unsteadiness Psychiatric: no behavioral changes and no depression Endocrine: no fatigue Physical Exam Physical Exam: Mild tenderness in the right flank Constitutional: well developed and well nourished Neck: neck nontender Respiratory: normal respiratory effort; no respiratory distress and does not use accessory muscles Cardiovascular: Rate/Rhythm: regular rate Vessels: radial pulses present Extremities: no edema Gastrointestinal (Abdomen): Inspection/Auscultation: abdomen normal to inspection Percussion/Palpation: abdomen soft; abdomen nontender and no g uarding Musculoskeletal: Head/Neck/Chest: normocephalic and head atraumatic Extremities: extremities normal to inspection Skin: no rashes and no lesions Trauma: no evidence of skin trauma Neurologic: awake; not obtunded Speech / Cognition: normal speech Motor/Sensory: no tremor Psychiatric: Orientation: alert and oriented x 3 Genitourinary: no CVA tenderness Lymphatic: no lymphadenopathy Results & Data ([facility]) Vital Signs (Past 12 Hours) Vital Signs Temp Pulse Resp BP Pulse Ox 12/13/19 07:39 36.7 C 72 18 107/69 95 12/12/19 23:01 36.6 C 92 H 16 122/64 95 PG Care Time/CCT Total # of Minutes Spent Total Time Spent with Patient: Total time spent is greater than 50% in coordination of care (as documented) at patient's floor/unit and/or counseling patient: Coding Level of Care Code 39572 Inpt Consult Level 4 Diagnoses Ureterolithiasis N20.1
--- NOTE | 2019-12-13 11:32 | Communication Note ---
Date of Service: December 13, 2019 Patient admitted with intractable right sided flank pain, CT abdomen pelvis on 12/11/2019 mild right-sided hydroureteronephrosis secondary to 5 and 14 to 4 mm calculus of the proximal right ureter X-ray of KUB on 12/12/2019 unchanged position a 5 mm right ureteric calculus projected over transverse process of L2 No sign of sepsis sepsis, patient is afebrile white count normal normal renal function Empiric antibiotic with IV Rocephin, urine culture ordered Patient's flank pain/abdominal pain has improved with current pain control No nausea vomiting Urology consulted, appreciate input-per Urology: pt feels that his symptoms at present well enough controlled -would like to wait for urologic procedure tomorrow Patient will be continue with IV fluids, to allow spontaneous passage of renal stone If patient becomes symptomatic increased right flank pain fever or chills or nausea or vomiting, unable to pass urine by tomorrow, may need urological procedure with cystoscopy and ureteric stent placed Patient is ordered diet today by urology, n.p.o. past midnight, in case patient needs urologic procedure tomorrow Hypernatremia/hyperchloremia Sodium 147 Change IV fluids to LR at 125 mL/h, patient is encouraged to increase p.o. liquid intake Repeat BMP in a.m. CODE STATUS full code DVT prophylaxis SCD and teds, avoid pharmacological anticoagulation as patient may need urological procedure Patient is encouraged to ambulate Disposition, expected to be discharged home when medically stable
[2019-12-13] MEDS: LACTATED RINGER'S 1,000 ML IV SCH ×2 (12:23→21:48)
--- NOTE | 2019-12-13 12:52 | Communication Note ---
Date of Service: December 13, 2019 ACUTE RENAL FAILURE: due to obstructed renal stone , poor PO intake , dehydration resolved renal function normalized with Iv hydration follow BMP HERPES LABIALIS INFECTION ; pt reports of symptoms of cold sore usually takes Valtrex ordered 1 gm Valtrex BID for 5 days ( given pts hx of HIV ) Deepa Looney MD
[2019-12-13] MEDS ORDERED: KETOROLAC TROMETHAMINE 15 MG/ML VIAL IV PRN (13:00)
[2019-12-13] MEDS: VALACYCLOVIR HCL 500 MG TABLET PO SCH ×2 (13:49→20:42)
[2019-12-13] MEDS: HYDROmorphone INJ 1 MG/ML SYRINGE IV PRN ×2 (13:51→18:37)
[2019-12-13] MEDS: cefTRIAXone SODIUM 2,000 MG in DEXTROSE 5% 50 ML IV SCH (17:33)
--- NOTE | 2019-12-13 18:16 | Hospitalist Progress Note ---
Date of Service December 13, 2019 Assessment & Plan (1) Ureterolithiasis: Patient admitted with intractable right sided flank pain, CT abdomen pelvis on 12/11/2019 mild right-sided hydroureteronephrosis secondary to 5 and 14 to 4 mm calculus of the proximal right ureter X-ray of K[facility] on 12/12/2019 unchanged position a 5 mm right ureteric calculus projected over transverse process of L2 No sign of sepsis sepsis, patient is afebrile white count normal normal renal function Empiric antibiotic with IV Rocephin, urine culture ordered Patient's flank pain/abdominal pain has improved with current pain control No nausea vomiting Urology consulted, appreciate input-per Urology: pt feels that his symptoms at present well controlled -would like to wait for urologic procedure tomorrow/allow for spontaneous passage of stone Patient will be continue with IV fluids, If patient becomes symptomatic increased right flank pain fever or chills or nausea or vomiting, unable to pass urine by tomorrow, may need urological procedure with cystoscopy and ureteric stent placed Patient is ordered diet today by urology, n.p.o. past midnight, in case patient needs urologic procedure tomorrow ACUTE RENAL FAILURE: due to obstructed renal stone , poor PO intake , dehydration resolved renal function normalized with Iv hydration follow BMP HERPES LABIALIS INFECTION ; pt reports of symptoms of cold sore usually takes Valtrex ordered 1 gm Valtrex BID for 5 days ( given pts hx of HIV ) Hypernatremia/hyperchloremia Sodium 147 Change IV fluids to LR at 125 mL/h, patient is encouraged to increase p.o. liquid intake Repeat BMP in a.m. CODE STATUS full code DVT prophylaxis SCD and teds, avoid pharmacological anticoagulation as patient may need urological procedure Patient is encouraged to ambulate Disposition, expected to be discharged home when medically stable Admission and Anticipated Discharge Date Admission Date: December 12, 2019 Subjective pt reports right flank pain has improved after getting pain meds comfortable with current pain medication regimen ( alternating between IV toradol and IV dilaudid afebrile no chills no nausea or vomiting , tolerating diet Review of Systems Review of Systems: All systems reviewed & are unremarkable except as noted in HPI & below Gastrointestinal: + problem reported (right flank pain with radiation to groin, requiring IV pain meds ); no nausea and no vomiting Physical Exam Constitutional: WD/WN, vitals as above no acute distress Eyes: PERRL, conjunctivae normal, anicteric sclerae ENMT: external ear and nose normal, oropharynx normal Neck: trachea midline, no thyromegaly Respiratory: normal respiratory effort, lungs clear to auscultation Cardiovascular: RRR, no murmur, no edema Gastrointestinal (Abdomen): Percussion/Palpation: + abdomen tender (right flank pain ) and abdomen soft Musculoskeletal: no cyanosis or clubbing, extremities motor strength 5/5 Skin: no rashes, warm and dry Neurologic: PERRL, EOMI, accommodation nl, no face palsy, no dysarthria Psychiatric: A+Ox3, euthymic affect Results & Data Results & Data ([facility]) Vital Signs (Past 12 Hours) Vital Signs Temp Pulse Resp BP Pulse Ox 12/13/19 16:22 36.7 C 76 16 137/80 94 12/13/19 07:39 36.7 C 72 18 107/69 95
[2019-12-13] MEDS: TAMSULOSIN HCL 0.4 MG CAP PO SCH (20:42)
[2019-12-14] MEDS: HYDROmorphone INJ 1 MG/ML SYRINGE IV PRN ×4 (00:07→17:23)
[2019-12-14] MEDS: LACTATED RINGER'S 1,000 ML IV SCH ×3 (05:33→17:47)
[2019-12-14] MEDS: ONDANSETRON INJ 2 MG/ML 2 ML VIAL IV PRN ×3 (08:19→23:51)
[2019-12-14] MEDS: VALACYCLOVIR HCL 500 MG TABLET PO SCH ×2 (08:23→20:35)
--- NOTE | 2019-12-14 09:13 | XRay Report ---
KUB HISTORY: rt sided renal stone COMPARISON: KUB 12/12/2019. FINDINGS: The bowel gas pattern is unremarkable. There are no dilated loops of small bowel to suggest an obstruction. No change in the 4 mm stone adjacent to the right L2 transverse process. This likel y resides within the proximal ureter. Prior cholecystectomy. A few punctate left renal calculi are al so noted. No pneumoperitoneum or pneumatosis. IMPRESSION: 1. No change in the proximal right ureteral stone. 2. Left-sided nephrolithiasis. ACT 112: Negative or not required by law. Electronically signed by: Cesar Hernandez M.D. 12/14/2019 9:12 AM
[2019-12-14 10:22] LABS: BUN Creatinine Ratio 5.4 (10-20); Calcium 9.2 mg/dl (8.5-10.1); Creatinine Clr Calc Pharmacy 95.9 ml/min; Est GFR (African American) 81.4; Est GFR (Non-African American) 70.2; Potassium 3.4 mmol/L (3.5-5.1)
[2019-12-14] MEDS ORDERED: POTASSIUM CHLORIDE / WTR 10 MEQ/100 ML PLCT IV ONE (10:45)
--- NOTE | 2019-12-14 10:50 | Communication Note ---
Date of Service: December 14, 2019 spoke with pt this AM , afebrile, no chills Vitals been stable experiencing flank pain , symptom controlled with IV pain meds became nauseous and episode of vomiting after returning from KUB /abdomen xray this AM ( possible due to narcotic pain meds,) Symptom resolved with IV Zofran X-ray of KUB: Today 12/14/2019: No change in the proximal right ureteric stone., left-sided nephrolithiasis BMP checked: Renal function normal, mildly low potassium possibly secondary to nausea vomiting Potassium replaced Urology following: Scheduled for ureteric stent placement later today Depending how patient recovers from the urologic procedure, If symptomatically much improved post ureteric stent, patient can be discharged later this afternoon Patient is agreeable and comfortable with discharge planning Deepa Looney MD
[2019-12-14] MEDS: PANTOprazole 40 MG TAB PO SCH (11:52)
[2019-12-14] MEDS: AMPHETAMINE ASP/SULF/DEXTRAMPH ER 20 MG CAP PO SCH (11:52)
[2019-12-14] MEDS ORDERED: PROMETHAZINE HCL 12.5 MG in SODIUM CHLORIDE 0.9% 50 ML IV PRN (12:16)
[2019-12-14] MEDS ORDERED: PROMETHAZINE HCL 12.5 MG in SODIUM CHLORIDE 0.9% 50 ML IV STA (12:18)
[2019-12-14] MEDS ORDERED: LIDOCAINE HCL 2% 2 ML VIAL/AMP(20MG/ML) INFIL ONE (14:46)
[2019-12-14] MEDS ORDERED: PROPOFOL IV EMULSION 10 MG/ML 20 ML VIAL IV ONE (14:46)
[2019-12-14] MEDS ORDERED: ONDANSETRON INJ 2 MG/ML 2 ML VIAL ONE (14:46)
[2019-12-14] MEDS ORDERED: MIDAZOLAM HCL 1 MG/ML 2ML VIAL ONE (14:46)
[2019-12-14] MEDS ORDERED: fentaNYL citrate 100 MCG/2 ML VIAL ONE (14:46)
[2019-12-14] MEDS ORDERED: DEXAMETHASONE SOD INJ 4 MG/ML VIAL ONE (14:46)
[2019-12-14] MEDS ORDERED: ONDANSETRON INJ 2 MG/ML 2 ML VIAL IV PRN (15:20)
[2019-12-14] MEDS ORDERED: fentaNYL citrate 100 MCG/2 ML VIAL IV PRN (15:20)
[2019-12-14] MEDS ORDERED: ATROPINE SULFATE 0.1 MG/ML 10ML SYR IV PRN (15:20)
[2019-12-14] MEDS ORDERED: ePHEDrine sulfate 50 MG/ML AMP IV PRN (15:20)
--- NOTE | 2019-12-14 15:20 | Urology Progress Note ---
Date of Service December 14, 2019 Assessment & Plan (1) Ureterolithiasis: 39-year-old male admitted with a kidney stone yesterday Plan for cystoscopy, right ureteroscopy, laser lithotripsy now Risks, benefits, expectations discussed Consent on the chart Admission and Anticipated Discharge Date Admission Date: December 12, 2019 Subjective Still has not passed a stone Intermittent pain overnight Review of Systems Review of Systems: All systems reviewed & are unremarkable except as noted in HPI & below Physical Exam Constitutional: well developed and well nourished Neck: neck nontender Respiratory: normal respiratory effort; no respiratory distress and does not use accessory muscles Cardiovascular: Rate/Rhythm: regular rate Vessels: radial pulses present Extremities: no edema Gastrointestinal (Abdomen): Inspection/Auscultation: abdomen normal to inspection Percussion/Palpation: abdomen soft; abdomen nontender and no guarding Musculoskeletal: Head/Neck/Chest: normocephalic and head atraumatic Extremities: extremities normal to inspection Skin: no rashes and no lesions Trauma: no evidence of skin trauma Neurologic: awake; not obtunded Speech / Cognition: normal speech Motor/Sensory: no tremor Psychiatric: Orientation: alert and oriented x 3 Genitourinary: no CVA tenderness Lymphatic: no lymphadenopathy Results & Data ([facility]) Vital Signs (Past 12 Hours) Vital Signs Temp Pulse Resp BP Pulse Ox 12/14/19 14:55 36.8 C 81 16 142/86 H 93 12/14/19 07:35 36.8 C 84 16 138/79 92 PG Care Time/CCT Total # of Minutes Spent Total Time Spent with Patient: Total time spent is greater than 50% in coordination of care (as documented) at patient's floor/unit and/or counseling patient: Coding Level of Care Code 80510 Subseq Hosp Care Lvl 2 Diagnoses Ureterolithiasis N20.1
--- NOTE | 2019-12-14 15:20 | Anesthesiology Consultation ---
Date of Service December 14, 2019 Assessment & Plan Chart Review Chart Review: Acceptable Risk for Surgery Consults Requested none ASA ASA2 Proposed Anesthesia Anesthesia Type: General Risk / Benefits Reviewed With: PT / POA / Parent / Guardian, Accepts Plan and Informed Consent Obtained History Surgery Operation Date: 12/14/19 14:15 Proposed Procedures p Cystoscopy, Right Ureteroscopy, Laser Lithotripsy with Stent Insertion - Faustino العراقي MD Height/Weight Height: 6 ft Weight: 102.8 kg Allergies Allergy/AdvReac Type Severity Reaction Status Date / Time naproxen Allergy Mild HEART Verified 12/12/19 00:35 RACED A LITTLE BIT Medications Home Medications Medication Instructions Recorded Confirmed Last Taken sildenafil 50 mg tablet 50 mg PO DAILY PRN #10 tab 01/26/19 12/12/19 Unknown dextroamphetamine-amphetamine ER 20 mg PO DAILY #30 cap 03/09/19 12/12/19 12/11/19 20 mg 24hr capsule,extend release bictegravir 50 mg-emtricitabine 1 tab PO DAILY #90 tab 06/02/19 12/12/19 12/11/19 200 mg-tenofovir alafenam 25 mg tablet adalimumab [Humira Pen] 40 mg SUBCUT UD 12/12/19 12/12/19 12/11/19 ondansetron 4 mg PO Q4H PRN #8 tab 12/12/19 12/12/19 12/12/19 oxycodone 5 - 10 mg PO Q4H PRN #14 tab 12/12/19 12/12/19 12/12/19 tamsulosin 0.4 mg PO HS 14 Days #14 cap 12/14/19 Unknown Active Medications Generic Name Dose Route Start Last Admin Trade Name Freq PRN Reason Stop Dose Admin Amphetamine/Dextroamphetamine 20 mg 12/13/19 09:00 12/14/19 11:52 Amphetamine Asp/Sulf/Dextramph Er 20 Mg Cap PO 12/27/19 08:59 Not Given DAILY REBECCA Hydromorphone HCl 1 mg 12/13/19 13:00 12/14/19 13:00 Hydromorphone Inj 1 Mg/Ml Syringe IV 12/27/19 12:59 1 mg Q4 PRN Administration Pain Ceftriaxone Sodium 2,000 mg/ 70 mls @ 100 mls/hr 12/12/19 18:00 12/13/19 18:30 Dextrose IV 12/14/19 17:59 Infused Q24H REBECCA Infusion Protocol Lactated Ringer's 1,000 mls @ 125 mls/hr 12/13/19 11:30 12/14/19 13:03 Lr IV 01/12/20 11:29 125 mls/hr .Q8H REBECCA Administration Miscellaneous 1 ea 12/13/19 00:00 12/14/19 08:23 Biktarvy: Order Awaiting Action N/A 01/12/20 00:00 Not Given QS REBECCA Ondansetron HCl 4 mg 12/12/19 13:59 12/14/19 08:19 Ondansetron Inj 2 Mg/Ml 2 Ml Vial IV 01/11/20 13:59 4 mg Q6H PRN Administration Nausea And Vomiting Oxycodone HCl 5 mg 12/12/19 14:00 12/13/19 00:13 Oxycodone Hcl Ir 5 Mg Tab (Immediate Release) PO 12/26/19 13:59 5 mg Q6H PRN Administration Moderate Pain Pantoprazole Sodium 40 mg 12/12/19 21:00 12/14/19 11:52 Pantoprazole 40 Mg Tab PO 12/16/19 20:59 Not Given BID REBECCA Tamsulosin HCl 0.4 mg 12/13/19 21:00 12/13/19 20:42 Tamsulosin Hcl 0.4 Mg Cap PO 01/12/20 20:59 0.4 mg HS REBECCA Administration Valacyclovir HCl 1,000 mg 12/13/19 13:00 12/14/19 08:23 Valacyclovir Hcl 500 Mg Tablet PO 12/17/19 21:01 Not Given BID REBECCA NPO Date Last Intake of Fluids: 12/13/19 Time Last Intake of Fluids: 23:30 Date Last Intake of Solids: 12/13/19 Time Last Intake of Solids: 18:00 Past Medical History Medical History HIV (human immunodeficiency virus infection) Exercise / Class Metabolic Activity II 4-5 Yardwork/Stairs/Walk up hill Past Family History Family History Denies family history of Kidney disease Past Surgical History Surgical History History of cholecystectomy Past Anesthesia History No Hx of Anesthesia Complications and No Family Hx of Anesthesia Complications History of PONV No Hx of PONV and No Hx of Motion Sickness Social History Smoking Status: Never smoker Do You Dip or Chew Tobacco: No Hx Alcohol Use: No Hx Substance Use: No substance use type: does not use Physical Exam Vital Signs Last Vital Signs Temp 97.5 F L 12/14/19 15:09 Pulse 84 12/14/19 15:09 Resp 18 12/14/19 15:09 BP 142/98 H 12/14/19 15:09 Pulse Ox 96 12/14/19 15:09 ENMT Mouth: no dentition abnormality Thyromental Distance: > or= 3.5 Finger Breadths Mallampati Class: II Neck normal visual inspection Respiratory normal respiratory effort Auscultation: lungs clear to auscultation bilaterally Cardiovascular Rate/Rhythm: regular rate and regular rhythm Testing Laboratory Results 12/13/19 07:27 12/14/19 09:38 Urine Color Yellow 12/12/19 12:49 Urine Appearance Clear (Clear) 12/12/19 12:49 Urine pH 7.0 (4.5-7.5) 12/12/19 12:49 Ur Specific [place] 1.013 (1.000-1.030) 12/12/19 12:49 Urine Protein Negative (Negative) 12/12/19 12:49 Urine Glucose (UA) Negative (Negative) 12/12/19 12:49 Urine Ketones Trace (Negative) H 12/12/19 12:49 Urine Nitrite Negative (Negative) 12/12/19 12:49 Ur Leukocyte Esterase Negative (Negative) 12/12/19 12:49 Urine WBC (Auto) 1-5 /hpf (0-5) 12/12/19 12:49 Urine RBC (Auto) 0-4 /hpf (0-4) 12/12/19 12:49 U Hyaline Cast (Auto) 5-10 /lpf (0-5) H 12/12/19 12:49 U Epithel Cells (Auto) 5-10 /lpf (0-5) H 12/12/19 12:49 Urine Bacteria (Auto) Negative (Negative) 12/12/19 12:49 12/12/19 14:55 Aerobic Blood Culture - Preliminary Blood No growth in Aerobic bottle after 24 hours. Anaerobic Blood Culture - Preliminary No growth in Anaerobic bottle after 24 hours. 12/12/19 14:56 Aerobic Blood Culture - Preliminary Blood No growth in Aerobic bottle after 24 hours. Anaerobic Blood Culture - Preliminary No growth in Anaerobic bottle after 24 hours.
--- NOTE | 2019-12-14 16:11 | Fluoroscopy Report ---
FL retrograde includes kub CLINICAL HISTORY: RT CYSTO COMPARISON STUDY: CT of the abdomen and pelvis December 12, 2019. KUB December 14, 2019. FLUOROSCOPY TIME: 7 seconds. FLUOROSCOPIC IMAGES: 1 FINDINGS: Fluoroscopy was provided during right retrograde exam. The proximal aspect of the right ure teral stent projects over the renal pelvis. Cholecystectomy clips are incidentally noted. IMPRESSION: Fluoroscopy provided during right retrograde exam with ureteral stent insertion. ACT 112: Negative or not required by law. Electronically signed by: Lamont Shah M.D. 12/14/2019 4:10 PM
--- NOTE | 2019-12-14 16:13 | Operative Report ---
PG Post Operative Report Pre & Post Diagnosis Operation Date: 12/14/19 14:15 Pre-Op Diagnosis: RIGHT KIDNEY STONE Post-Op Diagnosis: RIGHT KIDNEY STONE I identified the patient and participated in the time-out.: Yes Procedure Operation Date: 12/14/19 14:15 Actual Procedures p Cystoscopy, Right Ureteroscopy, Laser Lithotripsy with Stent Insertion(Right) - Faustino العراقي MD Surgeon Guillermo العراقي MD Headlight Adjuster none Estimated Blood Loss 0 Findings Consistent with Post-Op Diagnosis Specimens none Description of Procedure The patient was identified in the preoperative holding area, appropriate informed consents were reviewed and completed and the patient was transferred to the operative suite. Upon arrival, appropriate antibiotics and anesthesia were administered and the patient was placed in dorsal lithotomy position and prepped and draped in sterile fashion. To begin the case I passed a 22 Cambodian cystoscope with 30 degree lens. Inspection revealed a healthy-appearing urethra and small prostate. Bladder was healthy in appearance without mucosal abnormalities. The right ureteral orifice was cannulated with a sensor wire and 10 Cambodian double-lumen catheter. I then advanced a second wire. I advanced the flexible ureteroscope over one wire while reserving that there is a safety wire and I encountered resistance in the proximal ureter. After attaching the camera noted a stone impacted into the wall of the ureter in this location. I passed a 272 m laser fiber and fragmented the stone entirely. I performed a full renoscopy as well as a careful exit ureteroscopy and I saw no large retained stones. I concluded the case by placing a 6 Cambodian by 26 cm looped ureteral stent with a string attached. The case was subsequently concluded and he was extubated and taken to the PACU in stable condition. I attest to the content of the Intraoperative Record and any orders documented therein. Any exceptions are noted below.
--- NOTE | 2019-12-14 16:31 | Anesthesiology Progress Note ---
Date of Service December 14, 2019 Anesthesia Post Procedure Vital Signs Vital Signs: Temp Pulse Pulse Resp BP Pulse Ox 12/14/19 16:20 75 15 136/95 97 12/14/19 16:10 79 14 124/89 96 12/14/19 16:04 36.8 C 90 15 119/75 90 12/14/19 15:09 36.4 C L 84 18 142/98 H 96 12/14/19 14:55 36.8 C 81 16 142/86 H 93 12/14/19 07:35 36.8 C 84 16 138/79 92 12/14/19 00:15 36.9 C 84 14 168/82 H 93 Pain Intensity Right Flank: Pain Intensity: 0 Transfer of Care Handoff Completed per policy Notes Mental Status: alert / awake / arousable and participated in evaluation Patient Amnestic to Procedure: Yes Nausea / Vomiting: adequately controlled Pain: adequately controlled Airway Patency, RR, SpO2: stable & adequate BP & HR: stable & adequate Hydration State: stable & adequate Anesthetic Complications: no major complications apparent and Pt Satisfied with anesthetic care
--- NOTE | 2019-12-14 18:15 | Hospitalist Progress Note ---
Date of Service December 14, 2019 Assessment & Plan (1) Ureterolithiasis: Obstructed right ureteric stone Admitted with right flank pain CT abdomen pelvis on 12/11/2019 mild right-sided hydroureteronephrosis secondary to 5 and 14 to 4 mm calculus of the proximal right ureter X-ray of K[facility] on 12/12/2019 unchanged position a 5 mm right ureteric calculus projected over transverse process of L2 Urology consulted, appreciate input- Status post right ureteroscopy, left third lithotripsy with right ureteric stent placement Patient tolerated procedure well Observed overnight in medical floor Plan to discharge home tomorrow with appropriate urology follow-up ACUTE RENAL FAILURE: resolved renal function normalized with Iv hydration On admission had elevated creatinine/ATN due to obstructed renal stone , had poor appetite, nausea vomiting HERPES LABIALIS INFECTION ; pt reports of symptoms of cold sore usually takes Valtrex 1 gm Valtrex BID for 5 days ( given pts hx of HIV ) Prescription for 3 more days of Valtrex sent to patient's pharmacy CODE STATUS full code DVT prophylaxis SCD and teds, Disposition, discharge patient home tomorrow after urology evaluation Admission and Anticipated Discharge Date Admission Date: December 12, 2019 Subjective Patient underwent cystoscopy, had a right ureteric stent placement, Seen patient at bedside after procedure, appears to be groggy, recovering from anesthesia Able to answer questions Afebrile denies of any nausea vomiting, Does not have any pain or discomfort now Patient will be monitored inpatient overnight Tomorrow if remains afebrile, no flank pain, will be discharged home with urology follow-up Review of Systems Review of Systems: All systems reviewed & are unremarkable except as noted in HPI & below Physical Exam Constitutional: WD/WN, vitals as above no acute distress Eyes: PERRL, conjunctivae normal, anicteric sclerae ENMT: external ear and nose normal, oropharynx normal Neck: trachea midline, no thyromegaly Respiratory: normal respiratory effort, lungs clear to auscultation Cardiovascular: RRR, no murmur, no edema Gastrointestinal (Abdomen): Percussion/Palpation: abdomen soft; abdomen nontender Musculoskeletal: no cyanosis or clubbing, extremities motor strength 5/5 Skin: no rashes, warm and dry Neurologic: PERRL, EOMI, accommodation nl, no face palsy, no dysarthria Psychiatric: A+Ox3, euthymic affect Results & Data Results & Data ([facility]) Vital Signs (Past 12 Hours) Vital Signs Temp Pulse Pulse Resp BP Pulse Ox 12/14/19 18:05 36.7 C 87 18 145/86 H 90 12/14/19 17:36 36.8 C 90 17 153/92 H 90 12/14/19 16:57 78 18 134/82 94 12/14/19 16:50 80 18 124/85 94 12/14/19 16:40 36.8 C 74 20 120/86 94 12/14/19 16:30 76 12 121/90 94 12/14/19 16:20 75 15 136/95 97 12/14/19 16:10 79 14 124/89 96 12/14/19 16:04 36.8 C 90 15 119/75 90 12/14/19 15:09 36.4 C L 84 18 142/98 H 96 12/14/19 14:55 36.8 C 81 16 142/86 H 93 12/14/19 07:35 36.8 C 84 16 138/79 92
[2019-12-14] MEDS ORDERED: cefTRIAXone SODIUM 2,000 MG in DEXTROSE 5% 50 ML IV SCH (19:00)
[2019-12-14] MEDS: TAMSULOSIN HCL 0.4 MG CAP PO SCH (20:35)
[2019-12-14] MEDS: OXYCODONE HCL IR 5 MG TAB (IMMEDIATE RELEASE) PO PRN (23:51)
[2019-12-15] MEDS: LACTATED RINGER'S 1,000 ML IV SCH (02:22)
--- NOTE | 2019-12-15 08:27 | Urology Progress Note ---
Date of Service December 15, 2019 Assessment & Plan (1) Ureterolithiasis: pod #1 s/p cysto, r URS/LL doing great plan for d/c home this am scheduled for stent removal in the office this afternoon Admission and Anticipated Discharge Date Admission Date: December 12, 2019 Subjective much better today no hematuria minimal discomfort from the stent Physical Exam Constitutional: well developed and well nourished Respiratory: no respiratory distress Cardiovascular: Extremities: no pedal edema Gastrointestinal (Abdomen): Inspection/Auscultation: abdomen normal to inspection Results & Data ([facility]) Vital Signs (Past 12 Hours) Vital Signs Temp Pulse Pulse Resp BP Pulse Ox 12/15/19 08:18 36.6 C 77 18 137/81 94 12/15/19 03:56 36.9 C 104 H 14 136/78 92 12/15/19 00:12 36.9 C 108 H 14 145/92 H 92 PG Care Time/CCT Total # of Minutes Spent Total Time Spent with Patient: Total time spent is greater than 50% in coordination of care (as documented) at patient's floor/unit and/or counseling patient: Coding Level of Care Code 70867 Subseq Hosp Care Lvl 2 Diagnoses Ureterolithiasis N20.1
[2019-12-15 08:52] LABS: BUN Creatinine Ratio 8.5 (10-20); Calcium 9.1 mg/dl (8.5-10.1); Creatinine Clr Calc Pharmacy 92.3 ml/min; Est GFR (African American) 77.7
[2019-12-15] MEDS: AMPHETAMINE ASP/SULF/DEXTRAMPH ER 20 MG CAP PO SCH (09:14)
[2019-12-15] MEDS: VALACYCLOVIR HCL 500 MG TABLET PO SCH (09:15)
--- NOTE | 2019-12-15 09:36 | Discharge Summary ---
Date of Service December 15, 2019 Admission HPI Per Admitting Provider This is a male who presented to Emergency room on 12/11/2019 for right sided abdominal pain and subsequently found to have bilateral kidney stones with culprit cause of symptoms as the right ureteral stone causing mild hydronephrosis. Patient denies fevers at home and no other Gastrointestinal symptoms at that time. He was sent home from the ED on 12/11/2019 with analgesics so that he can pass the righter ureteral stone at home. But he returns to the ED on 12/12/2019 after vomiting. On review of systems, no chest pain, no shortness of breath, patient does not take any home inhalers recently, no dizziness. no headache. ED provider contacted [facility] urology. His urine analysis is negative for bacteria but since patient has history of HIV and may be eventually a candidate for cystoscopy with ureteral stent, hospitalist take will start empiric ceftriaxone. Admission Exam Per Admitting Provider Constitutional: comfortable Eyes: PERRL, conjunctivae normal, anicteric sclerae EOM intact bilaterally ENMT: external ear and nose normal, oropharynx normal Neck: trachea midline, no thyromegaly normal visual inspection Respiratory: normal respiratory effort, lungs clear to auscultation normal respiratory effort Cardiovascular: RRR, no murmur, no edema Gastrointestinal (Abdomen): Inspection/Auscultation: abdomen normal to i nspection and normal bowel sounds Percussion/Palpation: abdomen soft Musculoskeletal: Head/Neck/Chest: normocephalic and head atraumatic Neurologic: PERRL, EOMI, accommodation nl, no face palsy, no dysarthria CN's II-XI intact bilaterally Psychiatric: A+Ox3, euthymic affect Principal Diagnosis Obstructed kidney stone Acute renal failure Discharge Exam CONSTITUTIONAL: WNWD, vitals as above, generally well-appearing EYES: normal conjunctivae, no scleral icterus ENT: external ear and nose normal, oropharynx clear, MMM NECK: trachea midline RESPIRATORY: clear to auscultation bilaterally, no crackles, rales or wheezes, normal respiratory effort CARDIOVASCULAR: regular rate and rhythm, S1 and 2 heard without murmurs, gallops or rubs, no JVD, no peripheral edema GASTROINTESTINAL: soft, nontender, nondistended, no CVA tenderness MUSCULOSKELETAL: strength 5/5 throughout, head is normocephalic and atraumatic SKIN: warm and dry NEUROLOGIC: CN 2-12 grossly intact, normal cognition, normal speech, no tremor, no gross focal deficits. PSYCHIATRIC: alert cooperative and oriented to person, place and time. Discharge Data Allergies Allergy/AdvReac Type Severity Reaction Status Date / Time naproxen Allergy Mild HEART Verified 12/15/19 13:07 RACED A LITTLE BIT Consultations 12/12/19 13:42 ED Decision to Admit Stat 12/12/19 14:03 Consult Urology Routine Procedures Performed Operation Date: 12/14/19 14:15 Actual Procedures p Cystoscopy, Right Ureteroscopy, Laser Lithotripsy with (Right) - Faustino العراقي MD s Stent Insertion(Right) - Faustino العراقي MD Ordered Studies 12/14/19 FL retrograde includes kub Routine Hospital Course (1) Ureterolithiasis: Patient is a 39-year-old man who presented with ureteral colic. Work-up revealed a 4 mm right proximal ureteral calculus. Cystoscopy and stent placement was performed on 12/14/2019. On postoperative day 1 he was doing well with no hematuria and minimal discomfort from the stent. He was discharged in stable condition for his scheduled stent removal later that day in the office. Close primary care follow-up was recommended. Also noted was some acute renal failure with creatinine 1.7 on admission, and improved to normal with IVF prior to discharge. Total Time Total Time Spent Total Time Spent (In Minutes): 60 Total Time Includes: Examination of the Patient, Discharge Planning, Medication Reconciliation and Communication With Other Providers Discharge Plan Discharge Items Patient Disposition: Home - Self-Care Reason For Visit: RIGHT KIDNEY STONE Discharge Diagnosis: Obstructed kidney stone Condition on Discharge: Good Activity: Resume your previous activity Non-emergency contact: Primary Care Provider Call non-emergency contact if: you have any medication questions Follow-up/Referrals: Faustino العراقي MD [Physician] - (Follow-up with urology in 7-10 days as per schedule) Martín Medina DO [Primary Care Provider] - 12/20/19 3:00 pm (Date & Time 12/20/2019 3:00 PM Provider Martín Medina DO Department General [facility] ) Diet: Regular Addtl Attending Provider Instructions: Follow up with urology in the clinic as per schedule Please follow-up with your primary care physician at the date/time above to touch base after your hospitalization and ensure you are doing well. While you were in the hospital, you underwent a CT scan of you abdomen and pelvis with the following findings: "Equivocal rectal wall thickening with mild perirectal stranding and nonenlarged perirectal lymph node. " Please discuss with your primary care physician the need for referral to a gastroenterology specialist to look into this further. It was a pleasure taking care of you! Please call if you have any questions or problems. You can reach a [facility] hospitalist on duty at [facility] 24 hours a day by calling [phone]. Take care of yourself. Yvonne Smith, [facility] Center[facility] Pending Studies at Discharge: No Stand-Alone Forms: My [facility], Work/School Release (Inpt) Medications and DC Order Prescriptions: New tamsulosin 0.4 mg Capsule 0.4 mg PO HS 14 Days Qty: 14 RF: 0 valacyclovir 500 mg Tablet 1,000 mg PO BID 3 Days Qty: 12 RF: 0 Continued sildenafil [Viagra] 50 mg tablet 50 mg PO DAILY PRN (Reason: sexual activity) Qty: 10 RF: 0 Biktarvy 50-200-25 mg tablet 1 tab PO DAILY Qty: 90 RF: 3 dextroamphetamine-amphetamine [Adderall XR] 20 mg capsule,extended release 24hr 20 mg PO DAILY Qty: 30 RF: 0 Humira Pen 40 mg/0.8 mL pen injector kit 40 mg SUBCUT UD RF: 0 ondansetron 4 mg tablet,disintegrating 4 mg PO Q4H PRN (Reason: nausea and vomiting) Qty: 8 RF: 0 oxycodone 5 mg tablet 5 - 10 mg PO Q4H PRN (Reason: pain) Qty: 14 RF: 0 Discharge Orders: Discharge Order (Routine); Ordered 12/15/19 Ordered By: Yvonne Rockwell/Other Patient Handouts: Preventing Kidney Stones Admission Data Admit Date/Time: 12/12/19 14:00 Attending Provider: Yvonne Smith Admit Provider: Jay Nance Primary Care Provider: Martín Medina Other Providers: Jay Nance ; Faustino العراقي Other Interventions: Discharge Summary Assessment (RN) Last Done: 12/15/19 10:47
== END 2019-12-15 11:11 | disposition home or self-care (01) | DRG 660 ==
LOC: ED 10:11 → SUATTDRO 14:00 → 3W 14:00

== ENCOUNTER 2019-12-16 07:41 | Observation (INO) ==
[2019-12-16] MEDS ORDERED: HYDROmorphone INJ 1 MG/ML SYRINGE ONE (07:56)
[2019-12-16] MEDS ORDERED: ONDANSETRON INJ 2 MG/ML 2 ML VIAL ONE ×2 (07:57→12:58)
[2019-12-16] MEDS ORDERED: SODIUM CHLORIDE 0.9% 1000ML 1,000 ML IV ONE (08:03)
--- NOTE | 2019-12-16 08:07 | Emergency Department Note ---
Impression & Plan Acute right flank pain, Hydronephrosis, Vomiting, Hematuria ED Provider Note NAME: MORENA HOOD AGE: 39 SEX: M : 1980 ARRIVES VIA: Walk-In INFORMANT: [Patient] ED PROVIDER(S): [Abilio Fernandez MD] CHIEF COMPLAINT: Right flank pain HISTORY OF PRESENT ILLNESS: The patient is a 39-year-old male who was in our hospital for a right ureteral stone. He had lithotripsy. He had a stent placed he was discharged yesterday and then in the afternoon, had the stent removed. Last night he had some discomfort on the right. He tried some oxycodone. This morning, he awoke with severe pain in the right lower quadrant radiating to his right flank. He had some pain in the right testicle. The pain was a 10/10. He vomited at least twice. Patient states the pain feels as bad as it did when he first had the ureteral stone diagnosed. There has been no fever, no cough or congestion. No trauma. No urinary complaints. REVIEW OF SYSTEMS: See HPI for pertinent positives and negatives. A total of ten systems were reviewed and were otherwise negative. PMHx/PSHx: See Below SOCIAL HISTORY: See Below. PHYSICAL EXAM: GENERAL: Patient is in significant distress from pain. HEENT: No acute trauma, normocephalic atraumatic, mucous membranes moist, no toan al congestion, no scleral icterus. NECK: No stridor, no adenopathy, no meningismus, trachea is midline. LUNGS: Clear to auscultation bilaterally, no wheeze, no rhonchi, breath sounds equal. HEART: Without murmurs gallops or rubs, regular rate and rhythm. ABDOMEN: Soft, moderately tender along the entire right side, bowel sounds positive, no hernias, no peritonitis. EXTREMITIES: No cyanosis or edema, full range of motion of all the joints without pain or difficulty, no signs for acute trauma. NEUROLOGIC: Oriented x 3, no acute motor or sensory deficits, no focal weakness. SKIN: No rash, no jaundice, no diaphoresis. Back: Right flank discomfort to percussion. Groin: No hernia, no testicular swelling. DIFFERENTIAL DIAGNOSIS: Renal colic, UTI, appendicitis, diverticulitis, mesenteric ischemia, ureteral edema, aortic pathology, infections, inflammatory bowel disease, PUD, biliary pathology, as well as other pathologies. EMERGENCY DEPARTMENT COURSE/PROCEDURES: MEDICAL DECISION MAKING: There is a mild leukocytosis, this could be consistent with infection or just his pain. There is no anemia. There is some mild renal insufficiency/dehydration with a creatinine of 1.63. This is slightly above his baseline. No significant electrolyte abnormality in need of correction. Urinalysis shows red cells and white cells consistent with his recent lithotripsy and ureteral stent. No bacteria seen. KUB does not show any e vidence of his previous right-sided ureteral stone. Renal ultrasound shows right-sided hydronephrosis. There was some debris in the right ureter, no obvious ureteral stone. The patient was quite uncomfortable when he arrived. He was given IV Tylenol, IV Zofran and IV Dilaudid. Several doses of IV Dilaudid were necessary to control his pain. He received IV Toradol and IV saline. He is finally feeling improved. Patient is much more comfortable as noted above. I discussed the patient's case with his urology group. Hospitalization today was felt warranted as he has failed outpatient therapy. He may require a second stent. Ureteral edema was thought the likely cause of his hydronephrosis. I spoke to the patient about his findings, I did talk with case management. The on-call hospitalist was consulted. 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 Beliefs That Will Affect Care: None Current Living Situation: Significant Other Feels Safe at Home: Yes Allergies Allergies Allergy/AdvReac Type Severity Reaction Status Date / Time naproxen Allergy Mild HEART Verified 12/16/19 08:26 RACED A LITTLE BIT Home Meds Home Medications Medication Instructions Recorded Confirmed Humira Pen 40 mg SUBCUT UD 12/12/19 12/16/19 Previous Rx's Medication Instructions Recorded sildenafil 50 mg tablet 50 mg PO DAILY PRN #10 tab 01/26/19 dextroamphetamine-amphetamine ER 20 mg PO DAILY #30 cap 03/09/19 20 mg 24hr capsule,extend release bictegravir 50 mg-emtricitabine 1 tab PO DAILY #90 tab 06/02/19 200 mg-tenofovir alafenam 25 mg tablet ondansetron 4 mg PO Q4H PRN #8 tab 12/12/19 oxycodone 5 - 10 mg PO Q4H PRN #14 tab 12/12/19 tamsulosin 0.4 mg PO HS 14 Days #14 cap 12/14/19 valacyclovir 1,000 mg PO BID 3 Days #12 tab 12/14/19 Results & Data (ED) Vital Signs Vital Signs - 24 hr 12/16/19 07:48 12/16/19 08:56 12/16/19 10:29 Temperature 36.7 C Temperature Source Oral Pulse Rate 93 H Pulse Rate [Apical] Pulse Rate [Finger] 96 H 95 H Pulse Rhythm [Apical] Pulse Rhythm [Finger] Pulse Strength [Finger] Respiratory Rate 18 18 18 Respiratory Effort / Characteristics Respiratory Depth Normal Respiratory Pattern Blood Pressure 164/104 H Blood Pressure [Left Arm] Blood Pressure [Right Arm] 156/107 H 140/90 Blood Pressure Mean 124 Blood Pressure Mean [Left Arm] Blood Pressure Mean [Right Arm] 123 106 Blood Pressure Position [Left Arm] Blood Pressure Position [Right Arm] Pulse Oximetry 99 94 Oxygen Delivery Method Room Air Room Air Oxygen Flow Rate Sepsis Recent Fever Within 48 Hours No Sepsis New/Unexplained Change in Mental Status N/A Sepsis Action Taken by Nursing No Action Required 12/16/19 12:18 12/16/19 12:38 12/16/19 13:41 Temperature 36.7 C 36.3 C L Temperature Source Oral Temporal Artery Scan Pulse Rate 94 H Pulse Rate [Apical] 90 Pulse Rate [Finger] 87 Pulse Rhythm [Apical] Regular Pulse Rhythm [Finger] Regular Pulse Strength [Finger] Normal Respiratory Rate 20 18 12 Respiratory Effort / Characteristics Non-Labored Spontaneous Non-Labored Spontaneous Respiratory Depth Normal Normal Respiratory Pattern Regular Regular Blood Pressure 131/84 Blood Pressure [Left Arm] 122/86 Blood Pressure [Right Arm] 130/94 Blood Pressure Mean Blood Pressure Mean [Left Arm] 98 Blood Pressure Mean [Right Arm] 106 Blood Pressure Position [Left Arm] Semi-fowlers Blood Pressure Position [Right Arm] Sitting Pulse Oximetry 95 94 95 Oxygen Delivery Method Room Air Room Air Oxymask Oxygen Flow Rate 10 Sepsis Recent Fever Within 48 Hours Sepsis New/Unexplained Change in Mental Status Sepsis Action Taken by Nursing 12/16/19 13:50 12/16/19 14:00 12/16/19 14:10 Temperature 36.5 C Temperature Source Temporal Artery Scan Temporal Artery Scan Temporal Artery Scan Pulse Rate Pulse Rate [Apical] 90 79 81 Pulse Rate [Finger] Pulse Rhythm [Apical] Regular Regular Regular Pulse Rhythm [Finger] Pulse Strength [Finger] Respiratory Rate 18 13 15 Respiratory Effort / Characteristics Non-Labored Spontaneous Non-Labored Spontaneous Non-Labored Spontaneous Respiratory Depth Normal Normal Normal Respiratory Pattern Regular Regular Regular Blood Pressure Blood Pressure [Left Arm] 127/84 124/91 132/91 Blood Pressure [Right Arm] Blood Pressure Mean Blood Pressure Mean [Left Arm] 98 102 104 Blood Pressure Mean [Right Arm] Blood Pressure Position [Left Arm] Semi-fowlers Semi-fowlers Semi-fowlers Blood Pressure Position [Right Arm] Pulse Oximetry 96 95 94 Oxygen Delivery Method Oxymask Oxymask Nasal Cannula Oxygen Flow Rate 10 10 2 Sepsis Recent Fever Within 48 Hours Sepsis New/Unexplained Change in Mental Status Sepsis Action Taken by Nursing 12/16/19 14:20 Temperature Temperature Source Temporal Artery Scan Pulse Rate Pulse Rate [Apical] 90 Pulse Rate [Finger] Pulse Rhythm [Apical] Regular Pulse Rhythm [Finger] Pulse Strength [Finger] Respiratory Rate 21 Respiratory Effort / Characteristics Non-Labored Spontaneous Respiratory Depth Normal Respiratory Pattern Regular Blood Pressure Blood Pressure [Left Arm] 132/88 Blood Pressure [Right Arm] Blood Pressure Mean Blood Pressure Mean [Left Arm] 102 Blood Pressure Mean [Right Arm] Blood Pressure Position [Left Arm] Semi-fowlers Blood Pressure Position [Right Arm] Pulse Oximetry 93 Oxygen Delivery Method Nasal Cannula Oxygen Flow Rate 2 Sepsis Recent Fever Within 48 Hours Sepsis New/Unexplained Change in Mental Status Sepsis Action Taken by Longterm Medications Current Medication List: was personally reviewed by me Laboratory Data Attestation: I reviewed the patient's lab results. Result diagrams: 12/16/19 07:52 12/16/19 07:52 Lab Results 12/16/19 12/16/1920 Range/Units 07:52 07:52 09:01 WBC 12.02 H (4.8-10.8) K/uL RBC 5.01 (4.7-6.1) M/uL Hgb 15.4 (14.0-18.0) g/dL Hct 45.3 (42-52) % MCV 90.4 (80-100) fL MCH 30.7 (25-34) pg MCHC 34.0 (32-36) g/dL RDW Std Deviation 43.7 (36.4-46.3) fL RDW Coeff of Juan Jose 13.3 (11.5-14.5) % Plt Count 232 (130-400) K/uL MPV 10.1 (7.4-10.4) fL Immature Gran % (Auto) 0.3 % Neut % (Auto) 68.6 % Lymph % (Auto) 23.1 % [place]ardo % (Auto) 7.1 % Eos % (Auto) 0.7 % Baso % (Auto) 0.2 % Neut # (Auto) 8.24 H (1.4-6.5) K/uL Lymph # (Auto) 2.78 (1.2-3.4) K/uL [place]ardo # (Auto) 0.85 H (0.11-0.59) K/uL Eos # (Auto) 0.09 (0-0.5) K/uL Baso # (Auto) 0.02 (0-0.2) K/uL Immature Gran # (Auto) 0.04 H (0.00-0.02) K/uL Sodium 142 (136-145) mmol/L Potassium 3.8 (3.5-5.1) mmol/L Chloride 107 (98-107) mmol/L Carbon Dioxide 30 (21-32) mmol/L Anion Gap 6.0 (3-11) BUN 12 (7-18) mg/dl Creatinine 1.63 H D (0.6-1.4) mg/dl Est Cr Clr Drug Dosing 75.3 ml/min Est GFR ( Amer) 60.2 Est GFR (Non-Af Amer) 51.9 BUN/Creatinine Ratio 7.5 L (10-20) Glucose 134 H (70-99) mg/dl Calcium 9.4 (8.5-10.1) mg/dl Urine Color Red Urine Appearance Cloudy A (Clear) Urine pH 6.0 (4.5-7.5) Ur Specific [place] >= 1.030 (1.000-1.030) Urine Protein 2+ H (Negative) Urine Glucose (UA) Negative (Negative) Urine Ketones Negative (Negative) Urine Blood 3+ H (Negative) Urine Nitrite Negative (Negative) Urine Bilirubin Negative (Negative) Urine Urobilinogen Negative (Negative) Ur Leukocyte Esterase Negative (Negative) Urine RBC >30 H (0-4) /hpf Urine WBC >30 H (0-5) /hpf Ur Epithelial Cells 0-5 (0-5) /lpf Urine Bacteria Negative (Negative) Urine Mucus Present A (None Prsent) Administered Medications Discontinued Medications Ciprofloxacin (Ciprofloxacin 400mg / 200ml D5w) Confirm Administered Dose 400 mg IV .[employer]LIBCAST ONE Stop: 12/16/19 12:48 Last Admin: 12/16/19 14:46 Dose: Not Given Documented by: [id number] Hydromorphone HCl (Hydromorphone Inj 1 Mg/Ml Syringe) Confirm Administered Dose 1 mg .ROUTE .STK-MED ONE Stop: 12/16/19 07:57 Last Admin: 12/16/19 07:59 Dose: 1 mg Documented by: [id number] Hydromorphone HCl (Hydromorphone Inj 0.5 Mg/0.5 Ml Syr) 0.5 mg IV Q15M PRN PRN Reason: Pain Stop: 12/30/19 08:02 Last Admin: 12/16/19 08:53 Dose: 0.5 mg Documented by: [id number] Admin: 12/16/19 08:37 Dose: 0.5 mg Documented by: [id number] Admin: 12/16/19 08:20 Dose: 0.5 mg Documented by: [id number] Hydromorphone HCl (Hydromorphone Inj 1 Mg/Ml Syringe) 1 mg IV NOW STA Stop: 12/16/19 08:52 Last Admin: 12/16/19 09:01 Dose: 1 mg Documented by: [id number] Sodium Chloride (Nss 1000ml) 1,000 mls @ 999 mls/hr IV .Q1H1M ONE Stop: 12/16/19 09:03 Last Infusion: 12/16/19 10:10 Dose: 0 mls/hr Documented by: [id number] Admin: 12/16/19 08:20 Dose: 999 mls/hr Documented by: [id number] Ciprofloxacin (Cipro / D5w) 400 mg in 200 mls @ 100 mls/hr IV TODAY@1300 REBECCA; Protocol Stop: 12/16/19 18:00 Last Admin: 12/16/19 14:46 Dose: Not Given Documented by: [id number] Ketorolac Tromethamine (Ketorolac 30 Mg/Ml Vial) 30 mg IV NOW STA Stop: 12/16/19 08:52 Last Admin: 12/16/19 08:54 Dose: 30 mg Documented by: [id number] Ondansetron HCl (Ondansetron Inj 2 Mg/Ml 2 Ml Vial) Confirm Administered Dose 4 [address] .[address] .[facility]-MED ONE Stop: 12/16/19 07:58 Last Admin: 12/16/19 07:59 Dose: 4 mg Documented by: [id number] Imaging Data Radiologist's Impression: KUB CLINICAL HISTORY: Nephrolithiasis. FINDINGS: 2 AP supine abdominal radiographs are compared to study dated 12/14/2019 and correlated with abdominal CT dated 12/12/2019. There is a nonobstructed abdominal bowel gas pattern noting moderate constipation. Cholecystectomy clips are seen in the right upper quadrant. There is no radiographic evidence of nephrolithiasis on today's examination. The right proximal ureteral stone seen previously is no longer visualized. A phlebolith is noted in the left hemipelvis. The bony structures appear intact. IMPRESSION: There is no radiographic evidence of nephrolithiasis on today's examination. The right proximal ureteral stone seen previously is no longer visualized. RENAL ULTRASOUND CLINICAL HISTORY: right flank pain, hydro? COMPARISON STUDY: CT of the abdomen and pelvis December 12, 2019. KUB December 16, 2019 at 9:29 AM. TECHNIQUE: Sonography of the kidneys and the urinary bladder was performed. FINDINGS: Incidental note is made of fatty infiltration of the liver. The right kidney measures 12.3 x 5.6 x 5.9 cm and the left kidney measures 12.3 x 6.2 x 5.7 cm. There is mild right collecting system dilatation. There is apparent de bris within the collecting system. There is no left hydronephrosis. Both ureteral jets were identified although the left was larger than the right. No calculi are identified by sonography. IMPRESSION: 1. Mild right collecting system dilatation with possible debris within the collecting system. 2. No left hydronephrosis. 3. No calculi identified although these may be occult by sonography. Blood Pressure Blood Pressure Findings: Elevated blood pressure Blood Pressure Disposition: further management by hospitalist Discharge Plan Visit Data Chief Complaint: Flank Pain Stated Complaint: FLANK PAIN ED Provider: Abilio Fernandez Discharge Problem: Acute right flank pain, Hydronephrosis, Vomiting, Hematuria Patient Disposition: Admitted As Inpatient Condition: Good Discharge Instructions Interventions: ED Discharge Assessment Last Done: 12/16/19 12:18 Discharge Problem: Hydronephrosis Qualifiers: Hydronephrosis type: unspecified Qualified Code(s): N13.30 - Unspecified hydronephrosis Vomiting Qualifiers: Vomiting type: unspecified Vomiting Intractability: non-intractable Nausea presence: with nausea Qualified Code(s): R11.2 - Nausea with vomiting, unspe cified Hematuria Qualifiers: Hematuria type: gross Qualified Code(s): R31.0 - Gross hematuria
[2019-12-16 08:13] LABS: Basophils # (auto) 0.02 K/uL (0-0.2); Basophils % (auto) 0.2 %; Eosinophils # (auto) 0.09 K/uL (0-0.5); Eosinophils % (auto) 0.7 %; Hematocrit (blood only) 45.3 % (42-52); Hemoglobin 15.4 g/dL (14.0-18.0); Immature Granulocytes # (auto) 0.04 K/uL (0.00-0.02); Immature Granulocytes % (auto) 0.3 %; Lymphocytes # (auto) 2.78 K/uL (1.2-3.4); Lymphocytes % (auto) 23.1 %; Mean Corpuscular Hemoglobin 30.7 pg (25-34); Mean Corpuscular Volume 90.4 fL (80-100); Mean Platelet Volume 10.1 fL (7.4-10.4); Monocytes # (auto) 0.85 K/uL (0.11-0.59); Monocytes % (auto) 7.1 %; Neutrophils # (auto) 8.24 K/uL (1.4-6.5); Neutrophils % (auto) 68.6 %; Platelet Count 232 K/uL (130-400); RDW Coefficient of Variation 13.3 % (11.5-14.5); RDW Standard Deviation 43.7 fL (36.4-46.3); Red Blood Count 5.01 M/uL (4.7-6.1); White Blood Count 12.02 K/uL (4.8-10.8)
[2019-12-16] MEDS: HYDROmorphone INJ 0.5 MG/0.5 ML SYR IV PRN ×3 (08:20→08:53)
[2019-12-16 08:28] LABS: BUN Creatinine Ratio 7.5 (10-20); Calcium 9.4 mg/dl (8.5-10.1); Creatinine Clr Calc Pharmacy 75.3 ml/min; Est GFR (African American) 60.2; Est GFR (Non-African American) 51.9; Potassium 3.8 mmol/L (3.5-5.1)
[2019-12-16] MEDS ORDERED: KETOROLAC 30 MG/ML VIAL IV STA (08:51)
[2019-12-16] MEDS ORDERED: HYDROmorphone INJ 1 MG/ML SYRINGE IV STA (08:51)
[2019-12-16 09:18] LABS: Appearance Urine Cloudy (Clear); Bilirubin Urine Negative (Negative); Blood Urine 3+ (Negative); Color Urine Red; Glucose Urine UA Negative (Negative); Ketones Urine Negative (Negative); Leukocyte Esterase Urine Negative (Negative); Nitrite Urine Negative (Negative); Protein Urine 2+ (Negative); Specific Gravity Urine >= 1.030 (1.000-1.030); Urobilinogen Urine Negative (Negative)
[2019-12-16 09:23] LABS: Epithelial Cell Urine 0-5 /lpf (0-5); Mucus Urine Present (None Prsent); RBC Urine >30 /hpf (0-4)
[2019-12-16 09:24] LABS: Bacteria Urine Negative (Negative); WBC Urine >30 /hpf (0-5)
--- NOTE | 2019-12-16 09:50 | XRay Report ---
KUB CLINICAL HISTORY: Nephrolithiasis. FINDINGS: 2 AP supine abdominal radiographs are compared to study dated 12/14/2019 and correlated with abdominal CT dated 12/12/2019. There is a nonobstructed abdominal bowel gas pattern noting moderate con stipation. Cholecystectomy clips are seen in the right upper quadrant. There is no radiographic evide nce of nephrolithiasis on today's examination. The right proximal ureteral stone seen previously is n o longer visualized. A phlebolith is noted in the left hemipelvis. The bony structures appear intact. IMPRESSION: There is no radiographic evidence of nephrolithiasis on today's examination. The right pr oximal ureteral stone seen previously is no longer visualized. Electronically signed by: Abilio Birmingham M.D. 12/16/2019 9:49 AM
--- NOTE | 2019-12-16 11:11 | Ultrasound Report ---
RENAL ULTRASOUND CLINICAL HISTORY: right flank pain, hydro? COMPARISON STUDY: CT of the abdomen and pelvis December 12, 2019. KUB December 16, 2019 at 9:29 AM. TECHNIQUE: Sonography of the kidneys and the urinary bladder was performed. FINDINGS: Incidental note is made of fatty infiltration of the liver. The right kidney measures 12.3 x 5.6 x 5.9 cm and the left kidney measures 12.3 x 6.2 x 5.7 cm. There is mild right collecting syste m dilatation. There is apparent debris within the collecting system. There is no left hydronephrosis. Both ureteral jets were identified although the left was larger than the right. No calculi are ident ified by sonography. IMPRESSION: 1. Mild right collecting system dilatation with possible debris within the collecting system. 2. No left hydronephrosis. 3. No calculi identified although these may be occult by sonography. ACT 112: Negative or not required by law. Electronically signed by: Lamont Shah M.D. 12/16/2019 11:09 AM
[2019-12-16] MEDS ORDERED: ACETAMINOPHEN 1,000 MG/100 ML VIAL IV PRN (11:51)
--- NOTE | 2019-12-16 11:52 | History & Physical Report ---
Date of Service December 16, 2019 Assessment & Plan (1) Hydronephrosis: (2) Ureterolithiasis: This is a 39yo M with a PMH of recent ureteral stone s/p stent placement on 12/14/19, HIV, esophageal stricture, ankylosing spondylitis and other medical problems listed below who presents with worsening flank pain and hematuria and is s/p cystoscopy and R ureteral stent placement. -Ureteral spasm after stent removal yesterday with associated severe pain and nausea/vomiting, resent stent insertion and removal due to tethered stent on 12/15/19 returning with R flank pain and vomiting starting this AM -Afebrile, mild leukocytosis of 12, likely reactive to recent procedures -Renal ultrasound showing mild hydronephrosis. KUB does not show any remaining stone -POD#0 s/p cystoscopy and right ureteral stent insertion by Dr. العراقي - pain has resolved -Continue IV fluids for now, Flomax, resume diet, pain control PRN (3) HIV (human immunodeficiency virus infection): Follows with ID in [place]. Well controlled- viral load undetectable in September 2019 -Continue Biktarvy HS (4) Rheumatoid arthritis: (5) Ankylosing spondylitis lumbar region: HLA B27 (HLA B27 positive), follows with Dr. Castillo -Due for [facility] tomorrow (6) Esophageal stricture: S/p recent EGD with dilation 12/09/19. No swallowing difficulties (7) ADHD: Continue Adderall DVT Ppx: Rishi deluca Code status: FULL PCP: Adam Dispo: Observation med surg. Plan to return home once medically stable. Patient seen in collaboration with Dr. Mcgee. Please see addendum. History of Present Illness Chief Complaint: flank pain, hematuria Primary Care Provider: Martín Medina DO This is a 39yo M with a PMH of recent ureteral stone s/p stent placement on 12/14/19, HIV, esophageal stricture, ankylosing spondylitis and other medical problems listed below who presents with worsening flank pain and hematuria. Was recently admitted for 4 mm right proximal ureteral calculus s/p cystoscopy and stent placement was performed on 12/14/2019. On POD #1, he was doing well with no hematuria and minimal discomfort from the stent. He was discharged yesterday for scheduled stent removal later that day in urology office. Early this morning, patient developed R sided flank pain with associated vomiting episodes x 2. Tried oxycodone without improvement to pain so returned to ED for further evaluation. Patient seen and examined in 377-2 following cystoscopy and right ureteral stent insertion by Dr. العراقي. Patient is feeling much better, denying any flank pain. No nausea or vomiting. Denies any fever, chills, lightheadedness, visual changes, chest pain palpitation, shortness of breath, abdominal pain, dysuria, diarrhea or constipation. Allergies Allergy/AdvReac Type Severity Reaction Status Date / Time naproxen Allergy Mild HEART Verified 12/16/19 08:26 RACED A LITTLE BIT Home Medications Home Medications Medication Instructions Recorded Confirmed Type sildenafil 50 mg tablet 50 mg PO DAILY PRN #10 tab 01/26/19 12/16/19 Rx dextroamphetamine-amphetamine ER 20 mg PO DAILY #30 cap 03/09/19 12/16/19 Rx 20 mg 24hr capsule,extend release Humira Pen 40 mg SUBCUT UD 12/12/19 12/16/19 History ondansetron 4 mg PO Q4H PRN #8 tab 12/12/19 12/16/19 Rx oxycodone 5 - 10 mg PO Q4H PRN #14 tab 12/12/19 12/16/19 Rx tamsulosin 0.4 mg PO HS 14 Days #14 cap 12/14/19 12/16/19 Rx Biktarvy 1 tab PO HS 12/16/19 12/16/19 History Past Med/Surg History Medical History (Updated 12/16/19 @ 15:39 by Norma Walker PA-C) ADHD Ankylosing spondylitis lumbar region Esophageal stricture HIV (human immunodeficiency virus infection) Rheumatoid arthritis Ureterolithiasis Surgical History History of cholecystectomy History of cholecystectomy History of knee surgery Family History Other Stroke Denies family history of Kidney disease Social History Smoking Status: Never smoker Hx Alcohol Use: No Hx Substance Use: No Preferred Language: Turkish Communication Ability: Effective Customer Training Specialist Required: No Beliefs That Will Affect Care: None Current Living Situation: Significant Other Feels Safe at Home: Yes Review of Systems Review of Systems: At least ten systems reviewed and negative except as noted in the HPI. Physical Exam Physical Exam: General Appearance: WD/WN, vitals as above, NAD, sitting up in bed, pleasant, conversing easily Head: normocephalic, atraumatic Eyes: normal inspection, PERRL, conjunctivae normal, anicteric sclerae ENT: external ear and nose normal, oropharynx normal Neck: normal visual inspection, trachea midline, no thyromegaly Respiratory: normal respiratory effort, lungs clear to auscultation, no wheeze, rales, rhonchi. No accessory muscle use Cardiovascular: regular rate, rhythm, no murmur, normal peripheral pulses, no BLE edema. Vessels: no JVD Abdomen/GI: normal bowel sounds, soft, nontender, no hepatosplenomegaly : No flank pain or CVA TTP Extremities/Musculoskeletal: no cyanosis or clubbing, extremities motor strength 5/5 Neurologic: PERRL, EOMI, accommodation nl, no face palsy, no dysarthria, CN's II-XI intact bilaterally and moves all extremities Psychiatric: A+Ox3, euthymic affect Skin: no rashes, normal color, warm/dry Results & Data Results & Data ([facility]) Vital Signs (Past 12 Hours) Vital Signs Temp Pulse Pulse Resp BP BP Pulse Ox 12/16/19 10:29 95 H 18 140/90 94 12/16/19 08:56 96 H 18 156/107 H 12/16/19 07:48 36.7 C 93 H 18 164/104 H 99 Laboratory Results Short CBC 12/16/19 12/16/19 12/16/19 Range/Units 07:52 07:52 09:01 WBC 12.02 H (4.8-10.8) K/uL RBC 5.01 (4.7-6.1) M/uL Hgb 15.4 (14.0-18.0) g/dL Hct 45.3 (42-52) % MCV 90.4 (80-100) fL MCH 30.7 (25-34) pg MCHC 34.0 (32-36) g/dL RDW Std Deviation 43.7 (36.4-46.3) fL RDW Coeff of [place] 13.3 (11.5-14.5) % Plt Count 232 (130-400) K/uL MPV 10.1 (7.4-10.4) fL Immature Gran % (Auto) 0.3 % Neut % (Auto) 68.6 % Lymph % (Auto) 23.1 % [place] % (Auto) 7.1 % Eos % (Auto) 0.7 % Baso % (Auto) 0.2 % Neut # (Auto) 8.24 H (1.4-6.5) K/uL Lymph # (Auto) 2.78 (1.2-3.4) K/uL [place] # (Auto) 0.85 H (0.11-0.59) K/uL Eos # (Auto) 0.09 (0-0.5) K/uL Baso # (Auto) 0.02 (0-0.2) K/uL Immature Gran # (Auto) 0.04 H (0.00-0.02) K/uL Sodium 142 (136-145) mmol/L Potassium 3.8 (3.5-5.1) mmol/L Chloride 107 (98-107) mmol/L Carbon Dioxide 30 (21-32) mmol/L Anion Gap 6.0 (3-11) BUN 12 (7-18) mg/dl Creatinine 1.63 H D (0.6-1.4) mg/dl Est Cr Clr Drug Dosing 75.3 ml/min Est GFR ( Amer) 60.2 Est GFR (Non-Af Amer) 51.9 BUN/Creatinine Ratio 7.5 L (10-20) Glucose 134 H (70-99) mg/dl Calcium 9.4 (8.5-10.1) mg/dl Urine Color Red Urine Appearance Cloudy A (Clear) Urine pH 6.0 (4.5-7.5) Ur Specific [place] >= 1.030 (1.000-1.030) Urine Protein 2+ H (Negative) Urine Glucose (UA) Negative (Negative) Urine Ketones Negative (Negative) Urine Blood 3+ H (Negative) Urine Nitrite Negative (Negative) Urine Bilirubin Negative (Negative) Urine Urobilinogen Negative (Negative) Ur Leukocyte Esterase Negative (Negative) Urine RBC >30 H (0-4) /hpf Urine WBC >30 H (0-5) /hpf Ur Epithelial Cells 0-5 (0-5) /lpf Urine Bacteria Negative (Negative) Urine Mucus Present A (None Prsent) BMP 12/16/19 07:52 Sodium 142 Potassium 3.8 Chloride 107 Carbon Dioxide 30 BUN 12 Creatinine 1.63 H D Glucose 134 H Calcium 9.4 Urine 12/16/19 Range/Units 09:01 Urine Color Red Urine Appearance Cloudy A (Clear) Urine pH 6.0 (4.5-7.5) Ur Specific [place] >= 1.030 (1.000-1.030) Urine Protein 2+ H (Negative) Urine Glucose (UA) Negative (Negative) Diagnostic Findings Renal ultrasound: IMPRESSION: 1. Mild right collecting system dilatation with possible debris within the collecting system. 2. No left hydronephrosis. 3. No calculi identified although these may be occult by sonography. KUB XR: IMPRESSION: There is no radiographic evidence of nephrolithiasis on today's examination. The right proximal ureteral stone seen previously is no longer visualized. Code Status & VTE Plan VTE Prophylaxis Plan VTE Prophylaxis will be ordered: Yes Supervising Physician Co-Signing Physician Notes Pt was seen and examined. Agreed with Norma DUBOIS exam, assessment and plan. 39yo Male with PMH of recent ureteral stone s/p stent placement on 12/14/19, HIV, esophageal stricture, ankylosing spondylitis present to the ER with worsening flank pain and hematuria. He was recently admitted for ureteral calculus with stent placement on 12/14/2019. He saw urology yesterday and had a stent removal. Overnight he started to experience severe right sided flank pain and nausea. Renal u/s showed mild right collecting system dilatation with possible debris within the collecting system. Urology was consulted. His severe pain was consistent for ureteral spasm. S/P Cystoscopy and Right Stent Placement performed today by Dr. العراقي. Currently pain improved. Denies any chest pain, palpitation, dizziness and SOB. Elevated creatinine, will continue IVF. Monitor BMP. Will continue pain management prn. (1) Hydronephrosis Hydronephrosis type: unspecified Qualified Code(s): N13.30 - Unspecified hydronephrosis
--- NOTE | 2019-12-16 12:40 | Urology Consultation ---
Date of Consultation December 16, 2019 Assessment & Plan (1) Ureterolithiasis: Ureteral spasm after stent removal Severe pain and nausea/vomiting Plan for cystoscopy and right ureteral stent insertion now Pain control History of Present Illness Attending Physician: Guillermo العراقي MD History of Present Illness 39-year-old male who was seen earlier this week with an acute kidney stonetreated with ureteroscopy and laser lithotripsy Stent was removed yesterday and overnight he started to experience severe pain and nausea This is very consistent with ureteral spasm. Given his severe discomfort, I have recommended cystoscopy and ureteral stent placement Ultrasound showing mild hydro-as would be expected after recent procedure KUB does not show any remaining stone Allergies Allergy/AdvReac Type Severity Reaction Status Date / Time naproxen Allergy Mild HEART Verified 12/16/19 08:26 RACED A LITTLE BIT Home Medications Home Medications Medication Instructions Recorded Confirmed Type sildenafil 50 mg tablet 50 mg PO DAILY PRN #10 tab 01/26/19 12/16/19 Rx dextroamphetamine-amphetamine ER 20 mg PO DAILY #30 cap 03/09/19 12/16/19 Rx 20 mg 24hr capsule,extend release bictegravir 50 mg-emtricitabine 1 tab PO DAILY #90 tab 06/02/19 12/16/19 Rx 200 mg-tenofovir alafenam 25 mg tablet Humira Pen 40 mg SUBCUT UD 12/12/19 12/16/19 History ondansetron 4 mg PO Q4H PRN #8 tab 12/12/19 12/16/19 Rx oxycodone 5 - 10 mg PO Q4H PRN #14 tab 12/12/19 12/16/19 Rx tamsulosin 0.4 mg PO HS 14 Days #14 cap 12/14/19 12/16/19 Rx valacyclovir 1,000 mg PO BID 3 Days #12 tab 12/14/19 12/16/19 Rx Patient History Medical History Ureterolithiasis Surgical History History of cholecystectomy Family History Denies family history of Kidney disease Social History Smoking Status: Never smoker Hx Alcohol Use: No Hx Substance Use: No Preferred Language: Serbian Communication Ability: Effective Filling Separator Required: No Beliefs That Will Affect Care: None Current Living Situation: Significant Other Feels Safe at Home: Yes Review of Systems Constitutional: no fever, no chills and no fatigue Eyes: no worsening vision Ear, Nose, Mouth, Throat: no facial pain and no pain with swallowing Respiratory: no cough and no dyspnea Cardiovascular: no chest pain and no palpitations Gastrointestinal: + abdominal pain, + nausea and + vomiting Musculoskeletal: no back pain Integumentary: no rash and no urticaria Neurologic: no gait abnormality and no unsteadiness Psychiatric: no behavioral changes and no depression Endocrine: no fatigue Physical Exam Constitutional: well developed and well nourished Neck: neck nontender Respiratory: normal respiratory effort; no respiratory distress and does not use accessory muscles Cardiovascular: Rate/Rhythm: regular rate Vessels: radial pulses present Extremities: no edema Gastrointestinal (Abdomen): Inspection/Auscultation: abdomen normal to inspection Percussion/Palpation: abdomen soft; abdomen nontender and no guarding Musculoskeletal: Head/Neck/Chest: normocephalic and head atraumatic Extremities: extremities normal to inspection Skin: no rashes and no lesions Trauma: no evidence of skin trauma Neurologic: awake; not obtunded Speech / Cognition: normal speech Motor/Sensory: no tremor Psychiatric: Orientation: alert and oriented x 3 Genitourinary: no CVA tenderness Lymphatic: no lymphadenopathy Results & Data ([facility]) Vital Signs (Past 12 Hours) Vital Signs Temp Pulse Pulse Resp BP BP Pulse Ox 12/16/19 12:18 94 H 20 131/84 95 12/16/19 10:29 95 H 18 140/90 94 12/16/19 08:56 96 H 18 156/107 H 12/16/19 07:48 36.7 C 93 H 18 164/104 H 99 PG Care Time/CCT Total # of Minutes Spent Total Time Spent with Patient: Total time spent is greater than 50% in coordination of care (as documented) at patient's floor/unit and/or counseling patient: Coding Level of Care Code 48044 Inpt Consult Level 3 Diagnoses Ureterolithiasis N20.1
[2019-12-16] MEDS ORDERED: HYDROmorphone INJ 1 MG/ML SYRINGE IV PRN (12:41)
[2019-12-16] MEDS ORDERED: fentaNYL citrate 100 MCG/2 ML VIAL IV PRN (12:41)
[2019-12-16] MEDS ORDERED: ONDANSETRON INJ 2 MG/ML 2 ML VIAL IV PRN ×2 (12:41→14:43)
[2019-12-16] MEDS ORDERED: ePHEDrine sulfate 50 MG/ML AMP IV PRN (12:41)
[2019-12-16] MEDS ORDERED: ATROPINE SULFATE 0.1 MG/ML 10ML SYR IV PRN (12:41)
[2019-12-16] MEDS ORDERED: CIPROFLOXACIN 400MG / 200ML D5W IV ONE (12:47)
--- NOTE | 2019-12-16 12:56 | Anesthesiology Consultation ---
Date of Service December 16, 2019 Assessment & Plan (1) Encounter for pre-operative examination: Chart Review Chart Review: Acceptable Risk for Surgery and Patient NOT seen in Pre Admission Testing covid neg 12/14/2019. Consults Requested none History Surgery Operation Date: 12/16/19 11:05 Proposed Procedures p Cystoscopy, Right Stent Placement - Faustino العراقي MD Height/Weight Height: 6 ft Weight: 104.4 kg Allergies Allergy/AdvReac Type Severity Reaction Status Date / Time naproxen Allergy Mild HEART Verified 12/16/19 08:26 RACED A LITTLE BIT Medications Home Medications Medication Instructions Recorded Confirmed Last Taken sildenafil 50 mg tablet 50 mg PO DAILY PRN #10 tab 01/26/19 12/16/19 Unknown dextroamphetamine-amphetamine ER 20 mg PO DAILY #30 cap 03/09/19 12/16/19 12/11/19 20 mg 24hr capsule,extend release bictegravir 50 mg-emtricitabine 1 tab PO DAILY #90 tab 06/02/19 12/16/19 12/11/19 200 mg-tenofovir alafenam 25 mg tablet Humira Pen 40 mg SUBCUT UD 12/12/19 12/16/19 12/11/19 ondansetron 4 mg PO Q4H PRN #8 tab 12/12/19 12/16/19 12/12/19 oxycodone 5 - 10 mg PO Q4H PRN #14 tab 12/12/19 12/16/19 12/16/19 04:00 tamsulosin 0.4 mg PO HS 14 Days #14 cap 12/14/19 12/16/19 Unknown valacyclovir 1,000 mg PO BID 3 Days #12 tab 12/14/19 12/16/19 Unknown Active Medications Generic Name Dose Route Start Last Admin Trade Name Freq PRN Reason Stop Dose Admin Hydromorphone HCl 0.5 mg 12/16/19 08:03 12/16/19 08:53 Hydromorphone Inj 0.5 Mg/0.5 Ml Syr IV 12/30/19 08:02 0.5 mg Q15M PRN Administration Pain NPO Date Last Intake of Fluids: 12/15/19 Time Last Intake of Fluids: 06:00 Date Last Intake of Solids: 12/15/19 Time Last Intake of Solids: 08:00 Past Medical History Medical History Ureterolithiasis Exercise / Class Metabolic Activity II 4-5 Yardwork/Stairs/Walk up hill Past Family History Family History Denies family history of Kidney disease Past Surgical History Surgical History History of cholecystectomy Past Anesthesia History No Hx of Anesthesia Complications and No Family Hx of Anesthesia Complications History of PONV No Hx of PONV and No Hx of Motion Sickness Social History Smoking Status: Never smoker Hx Alcohol Use: No Hx Substance Use: No substance use type: does not use Physical Exam Vital Signs Last Vital Signs Temp 36.7 C 12/16/19 12:38 Pulse 87 12/16/19 12:38 Resp 18 12/16/19 12:38 BP 130/94 12/16/19 12:38 Pulse Ox 94 12/16/19 12:38 Testing Laboratory Results 12/16/19 07:52 12/16/19 07:52 Urine Color Red 12/16/19 09:01 Urine Appearance Cloudy (Clear) A 12/16/19 09:01 Urine pH 6.0 (4.5-7.5) 12/16/19 09:01 Ur Specific [place] >= 1.030 (1.000-1.030) 12/16/19 09:01 Urine Protein 2+ (Negative) H 12/16/19 09:01 Urine Glucose (UA) Negative (Negative) 12/16/19 09: Urine Ketones Negative (Negative) 12/16/19 09:01 Urine Nitrite Negative (Negative) 12/16/19 09:01 Ur Leukocyte Esterase Negative (Negative) 12/16/19 09:01 Urine RBC >30 /hpf (0-4) H 12/16/19 09:01 Urine WBC >30 /hpf (0-5) H 12/16/19 09:01 Ur Epithelial Cells 0-5 /lpf (0-5) 12/16/19 09:01
[2019-12-16] MEDS ORDERED: SUCCINYLCHOLINE CHLORIDE 20 MG/ML 10 ML VIAL IV ONE (12:58)
[2019-12-16] MEDS ORDERED: ROCURONIUM BROMIDE 10 MG/ML 5 ML VIAL IV ONE (12:58)
[2019-12-16] MEDS ORDERED: LARYING-O-JET KIT (LTA) ONE (12:58)
[2019-12-16] MEDS ORDERED: PROPOFOL IV EMULSION 10 MG/ML 20 ML VIAL IV ONE (12:58)
[2019-12-16] MEDS ORDERED: LIDOCAINE HCL 2% 2 ML VIAL/AMP(20MG/ML) INFIL ONE (12:58)
[2019-12-16] MEDS ORDERED: MIDAZOLAM HCL 1 MG/ML 2ML VIAL ONE (12:58)
[2019-12-16] MEDS ORDERED: DEXAMETHASONE SOD INJ 4 MG/ML VIAL ONE (12:58)
[2019-12-16] MEDS ORDERED: fentaNYL citrate 100 MCG/2 ML VIAL ONE (12:59)
[2019-12-16] MEDS ORDERED: CIPROFLOXACIN / D5W 400 MG/200 ML BAG IV SCH (13:00)
--- NOTE | 2019-12-16 13:34 | Operative Report ---
[facility] Post Operative Report Pre & Post Diagnosis Operation Date: 12/16/19 11:05 Pre-Op Diagnosis: Right Hydronephrosis Post-Op Diagnosis: Right Hydronephrosis I identified the patient and participated in the time-out.: Yes Procedure Operation Date: 12/16/19 11:05 Actual Procedures p Cystoscopy, Right Stent Placement(Right) - Faustino العراقي MD Surgeon Guillermo العراقي MD [employer] [place] [employer] none Estimated Blood Loss 0 Findings Consistent with Post-Op Diagnosis Specimens none Description of Procedure The patient was identified in the preoperative holding area, appropriate informed consents were reviewed and completed and the patient was transferred to the operative suite. Upon arrival, appropriate antibiotics and anesthesia were administered and the patient was placed in dorsal lithotomy position and prepped and draped in sterile fashion. To begin the case to pass a 22 [place] cystoscope with 30 degree lens. In spection revealed healthy appearing urethral mucosa. There were no strictures. His prostate is small in size. Bladder was healthy. He has mild inflammation around the right ureteral orifice consistent with the recent procedure. I cannulated this right UO with a sensor wire to 5 [place]ian open-ended catheter. There was discharge of some old urine after passage of the wire but no purulence or significant bleeding. I then proceeded to place a 6 Slovenian by 26 centimeters ureteral stentthis was a looped stent. There was no string attached to it. There was an excellent curl in the kidney as well as the bladder. I subsequently decompressed the bladder and concluded the case. He was extubated and taken to the PACU in stable condition. There were no complications. I attest to the content of the Intraoperative Record and any orders documented therein. Any exceptions are noted below.
--- NOTE | 2019-12-16 13:46 | Fluoroscopy Report ---
[place] KUB CLINICAL HISTORY: CYSTO/STENT COMPARISON STUDY: CT of the abdomen and pelvis March 12, 2020. Renal ultrasound performed earlier today. FLUOROSCOPY TIME: 4 seconds. FLUOROSCOPIC IMAGES: 1 FINDINGS: Fluoroscopy was provided for right retrograde exam with ureteral stent insertion. Proximal aspect of stent projects over right renal pelvis. Incidental note is made of cholecystectomy clips. IMPRESSION: Fluoroscopy provided for right retrograde exam with ureteral stent insertion. ACT 112: Negative or not required by law. Electronically signed by: Lamont Shah M.D. 12/16/2019 1:45 PM
--- NOTE | 2019-12-16 14:42 | Anesthesiology Progress Note ---
Date of Service December 16, 2019 Anesthesia Post Procedure Vital Signs Vital Signs: Temp Pulse Pulse Pulse Resp BP BP 12/16/19 14:20 90 21 132/88 12/16/19 14:10 36.5 C 81 15 132/91 12/16/19 14:00 79 13 124/91 12/16/19 13:50 90 18 127/84 12/16/19 13:41 36.3 C L 90 12 122/86 12/16/19 12:38 36.7 C 87 18 12/16/19 12:18 94 H 20 131/84 12/16/19 10:29 95 H 18 12/16/19 08:56 96 H 18 12/16/19 07:48 36.7 C 93 H 18 164/104 H BP Pulse Ox 12/16/19 14:20 93 12/16/19 14:10 94 12/16/19 14:00 95 12/16/19 13:50 96 12/16/19 13:41 95 12/16/19 12:38 130/94 94 12/16/19 12:18 95 12/16/19 10:29 140/90 94 12/16/19 08:56 156/107 H 12/16/19 07:48 99 Pain Intensity Right Flank: Pain Intensity: 1 Transfer of Care Handoff Completed per policy Notes Mental Status: alert / awake / arousable and participated in evaluation Patient Amnestic to Procedure: Yes Nausea / Vomiting: adequately controlled Pain: adequately controlled Airway Patency, RR, SpO2: stable & adequate BP & HR: stable & adequate Hydration State: stable & adequate Anesthetic Complications: no major complications apparent and Pt Satisfied with anesthetic care
[2019-12-16] MEDS ORDERED: POLYETHYLENE (MIRALAX) 17 GM PACK PO PRN (14:43)
[2019-12-16] MEDS ORDERED: HYDROmorphone INJ 0.5 MG/0.5 ML SYR IV PRN (14:43)
[2019-12-16] MEDS ORDERED: ACETAMINOPHEN 500 MG TAB PO PRN (15:25)
[2019-12-16] MEDS ORDERED: OXYCODONE HCL IR 5 MG TAB (IMMEDIATE RELEASE) PO PRN (15:27)
[2019-12-16] MEDS: AMPHETAMINE ASP/SULF/DEXTRAMPH ER 20 MG CAP PO SCH (16:13)
[2019-12-16] MEDS: SODIUM CHLORIDE 0.9% 1000ML 1,000 ML IV SCH ×2 (17:23→23:29)
[2019-12-16] MEDS ORDERED: TAMSULOSIN HCL 0.4 MG CAP PO SCH (21:00)
[2019-12-17] MEDS: AMPHETAMINE ASP/SULF/DEXTRAMPH ER 20 MG CAP PO SCH (06:08)
[2019-12-17] MEDS: SODIUM CHLORIDE 0.9% 1000ML 1,000 ML IV SCH (06:08)
[2019-12-17 06:21] LABS: Hematocrit (blood only) 40.8 % (42-52); Hemoglobin 13.8 g/dL (14.0-18.0); Mean Corpuscular Hemoglobin 30.2 pg (25-34); Mean Corpuscular Hgb Conc 33.8 g/dL (32-36); Mean Corpuscular Volume 89.3 fL (80-100); Mean Platelet Volume 10.1 fL (7.4-10.4); Platelet Count 218 K/uL (130-400); RDW Coefficient of Variation 12.9 % (11.5-14.5); RDW Standard Deviation 41.5 fL (36.4-46.3); Red Blood Count 4.57 M/uL (4.7-6.1); White Blood Count 10.62 K/uL (4.8-10.8)
[2019-12-17 06:49] LABS: BUN Creatinine Ratio 12.8 (10-20); Calcium 8.7 mg/dl (8.5-10.1); Creatinine Clr Calc Pharmacy 100.5 ml/min; Est GFR (African American) 85.4; Est GFR (Non-African American) 73.7; Potassium 3.9 mmol/L (3.5-5.1)
--- NOTE | 2019-12-17 09:43 | Discharge Summary ---
Date of Service December 17, 2019 Admission HPI Per Admitting Provider This is a 39yo M with a PMH of recent ureteral stone s/p stent placement on 12/14/19, HIV, esophageal stricture, ankylosing spondylitis and other medical problems listed below who presents with worsening flank pain and hematuria. Was recently admitted for 4 mm right proximal ureteral calculus s/p cystoscopy and stent placement was performed on 12/14/2019. On POD #1, he was doing well with no hematuria and minimal discomfort from the stent. He was discharged yesterday for scheduled stent removal later that day in urology office. Early this morning, patient developed R sided flank pain with associated vomiting episodes x 2. Tried oxycodone without improvement to pain so returned to ED for further evaluation. Patient seen and examined in 377-2 following cystoscopy and right ureteral stent insertion by Dr. العراقي. Patient is feeling much better, denying any flank pain. No nausea or vomiting. Denies any fever, chills, lightheadedness, visual changes, chest pain palpitation, shortness of breath, abdominal pain, dysuria, diarrhea or constipation. Admission Exam Per Admitting Provider General Appearance: WD/WN, vitals as above, NAD, sitting up in bed, pleasant, conversing easily Head: normocephalic, atraumatic Eyes: normal inspection, PERRL, conjunctivae normal, anicteric sclerae ENT: external ear and nose normal, oropharynx normal Neck: normal visual inspection, trachea midline, no thyromegaly Respiratory: normal respiratory effort, lungs clear to auscultation, no wheeze, rales, rhonchi. No accessory muscle use Cardiovascular: regular rate, rhythm, no murmur, normal peripheral pulses, no BLE edema. Vessels: no JVD Abdomen/GI: normal bowel sounds, soft, nontender, no hepatosplenomegaly : No flank pain or CVA TTP Extremities/Musculoskeletal: no cyanosis or clubbing, extremities motor strength 5/5 Neurologic: PERRL, EOMI, accommodation nl, no face palsy, no dysarthria, CN's II-XI intact bilaterally and moves all extremities Psychiatric: A+Ox3, euthymic affect Skin: no rashes, normal color, warm/dry Principal Diagnosis ureterolithiasis with ureterospasm after stent removal right stent replacement on 12/15 Acute kidney injury Discharge Exam CONSTITUTIONAL: WNWD, vitals as above, generally well-appearing EYES: normal conjunctivae, no scleral icterus ENT: external ear and nose normal, MMM RESPIRATORY: clear to auscultation bilaterally, no crackles, rales or wheezes, normal respiratory effort CARDIOVASCULAR: regular rate and rhythm, S1 and 2 heard without murmurs, gallops or rubs, no JVD, no peripheral edema GASTROINTESTINAL: normal bowel sounds, soft, nontender, no guarding. No CVA tenderness. MUSCULOSKELETAL: strength 5/5 throughout, head is normocephalic and atraumatic SKIN: warm and dry, tattoes NEUROLOGIC: CN 2-12 grossly intact, no gross focal deficits. PSYCHIATRIC: alert cooperative and oriented to person, place and time. Discharge Data Allergies Allergy/AdvReac Type Severity Reaction Status Date / Time naproxen Allergy Mild HEART Verified 12/16/19 08:26 RACED A LITTLE BIT Consultations 12/16/19 11:44 ED Decision to Admit Stat 12/16/19 11:52 Consult Urology Routine Procedures Performed Operation Date: 12/16/19 11:05 Actual Procedures p Cystoscopy, Right Stent Placement(Right) - Faustino العراقي MD Ordered Studies 12/16/19 08:03 US renal/blad retro comp Stat 12/16/19 13:00 FL KUB Routine FL fluoroscopy <1hr Routine Hospital Course (1) Ureterolithiasis: 39-year-old man with a history of recent ureteral stone status post stent placement on 12/14/2019. He presented to the ER after significant ureteral spasm at home. On 12/15/2019 he had gone to the urology office and had stent removed. Upon presentation he was treated for vomiting and pain and given IV fluids with continuation of Flomax. He had a renal ultrasound showing mild hydronephrosis. KUB did not show any remaining stone. Urology was consulted and recommended replacement of the right ureteral stent. This was performed on 12/16/2019 and the following day the patient felt better and was eager to go home. He was given Cipro postoperatively. At time of discharge he was mentating and ambulating at baseline and tolerating p.o. He was hemodynamically stable and afebrile and oxygenating well on room air. He was sent home in stable condition with close primary care follow-up and with urology follow-up in the next 1 to 2 months to entertain stent removal at that time. Additionally his creatinine was elevated to 1.6 on admission and resolved to 1.2 by discharge after IV fluids were administered. Total Time Total Time Spent Total Time Spent (In Minutes): 60 Total Time Includes: Examination of the Patient, Discharge Planning, Medication Reconciliation and Communication With Other Providers Discharge Plan Discharge Items Patient Disposition: Home - Self-Care Reason For Visit: HEMATURIA, FLANK PAIN Discharge Diagnosis: ureterolithiasis with ureterospasm after stent removal right stent replacement on 12/15 Acute kidney injury Condition on Discharge: Good Activity: Resume your previous activity Non-emergency contact: Primary Care Provider and Urologist Call non-emergency contact if: you have any medication questions, your symptoms worsen, your pain is not controlled, your pain is worsening, your pain is unusual for you, your pain is concerning for you and you have a fever Follow-up/Referrals: Martín Medina, [Primary Care Provider] - Diet: Regular Addtl Attending Provider Instructions: Please take all medications as instructed on discharge below. Please follow-up with your primary care provider within one week of discharge. Staff at Dr. العراقي's office will be reaching out to you to set up follow-up w ith him again in the next few weeks. Please contact their office if you develop any stent pain. It was a pleasure taking care of you! Please call if you have any questions or problems. You can reach a [facility] hospitalist on duty at [facility] 24 hours a day by calling [phone]. Take care of yourself. Yvonne Smith DO [facility] Hospitalist Pending Studies at Discharge: Yes Studies:: urine culture Stand-Alone Forms: My [facility] Medications and DC Order Prescriptions: New ciprofloxacin HCl [Cipro] 500 mg tablet 500 mg PO Q12H Qty: 4 RF: 0 Continued sildenafil [Viagra] 50 mg tablet 50 mg PO DAILY PRN (Reason: sexual activity) Qty: 10 RF: 0 dextroamphetamine-amphetamine [Adderall XR] 20 mg capsule,extended release 24hr 20 mg PO DAILY Qty: 30 RF: 0 tamsulosin 0.4 mg Capsule 0.4 mg PO HS 14 Days Qty: 14 RF: 0 Humira Pen 40 mg/0.8 mL pen injector kit 40 mg SUBCUT UD RF: 0 ondansetron 4 mg tablet,disintegrating 4 mg PO Q4H PRN (Reason: nausea and vomiting) Qty: 8 RF: 0 oxycodone 5 mg tablet 5 - 10 mg PO Q4H PRN (Reason: pain) Qty: 14 RF: 0 Biktarvy 50-200-25 mg tablet 1 tab PO HS RF: 0 Discharge Orders: Discharge Order (Routine); Ordered 12/17/19 Ordered By: Yvonne Smith Admission Data Admit Date/Time: 12/16/19 14:38 Attending Provider: Yvonne Smith Admit Provider: Joelle Mcgee Primary Care Provider: Martín Medina Other Providers: Joelle Mcgee ; Faustino العراقي Other Interventions: Discharge Summary Assessment (RN) Last Done: 12/17/19 10:02
== END 2019-12-17 10:13 | disposition home or self-care (01) ==
LOC: ED 07:41 → ASU 12:18 → 3N 12:18 → SUATTDRO 14:38

== ENCOUNTER 2021-05-09 07:05 | Inpatient (IN) ==
--- NOTE | 2021-05-09 07:43 | Emergency Department Note ---
Impression & Plan Dizziness, Nausea, Ambulatory dysfunction ED Provider Note Provider: Luis Linder MD DATE OF SERVICE: 05/09/2021 CHIEF COMPLAINT: Dizziness, right side pulling nausea HISTORY OF PRESENT ILLNESS: Patient is a 40-year-old gentleman with history of esophageal stricture, ankylosing spondylitis, and HIV presenting here today reporting on and off dizziness over the past 2 weeks. Has had some nausea and vomiting with this. Reports the dizziness has been more constant over the last 2 days and it feels like "his body is pulling to the right side ". States had bit of double vision. Denies any pain at this point has occasionally had some headaches. Has seen both [facility] as well as [facility] neurosurgery and was planning to have the following repeat MRI in several weeks. Patient states today when he got up he felt dizzy which was not abnormal but then the dizziness persisted he had difficulty driving in today. No car accidents or falls reported. States it seems like he was trending towards his right side but again reached out and held himself steady. Some nausea when he gets dizzy but denies any now peer denies any abdominal pain. Denies fever. Occasionally some Tyle nol for the headaches when they occur but none today. States he does not feel again nauseous at this point. Patient is concerned regarding the masses and possible worsening. Patient states his vision does seem a little bit off. Denies numbness or weakness in the extremities at this time otherwise. Denies slurred speech or aphasia. REVIEW OF SYSTEMS: A total of 10 review of systems was obtained and negative except as stated above in the HPI. PAST MEDICAL HISTORY: As noted above MEDICATIONS: Reviewed home medications SOCIAL HISTORY: Works here in sterile processing PHYSICAL EXAM: GENERAL: alert and oriented in no acute distress on stretcher Head: normocephalic and atraumatic EYES: No injection, discharge or icterus. PERRL, EOMI. NECK: Trachea midline. Supple. ENT: Mucous membranes pink and moist. LUNGS: Airway patent. No retractions. Breath sounds clear with good air entry bilaterally. HEART: Regular rate and rhythm. No chest wall tenderness ABDOMEN: Soft and non-tender, without guarding or rebound. SKIN: Acyanotic, warm, dry, without rashes EXTREMITIES: Without swelling, tenderness or deformity NEUROLOGICAL: No focal deficits. No aphasia. No facial droop or slurred speech. Normal strength and tone in the extremities. Sensation to gross touch normal. Ambulates with significant unsteadiness. EK bpm normal sinus rhythm. No PVC. No acute ST segment elevation. QTc 427. Normal axis. CONTINUOUS CARDIAC MONITORING: was ordered and showed a heart rate of 70s-90s bpm in normal sinus rhythm Patient's laboratory studies and imaging reviewed. Differential includes Infection, dehydration, metabolic abnormality, hypo/hyperglycemia, electrolyte disturbance, anemia, hypoxia, cardiac sources, intracerebral event, toxicologic, neurologic, as well as other pathologies. IMPRESSION/MEDICAL DECISION MAKING: Reviewed medical records including prior MRI from September 2020 available here did show an extra-axial lesion along the left alex. We will repeat her imaging today given the dizziness findings. Less likely be stroke or MS. No fevers or infection symptoms reported and on Crisostomo therapy and low suspicion for infectious etiology at this point. Benign abdomen. No trauma history locally. Does not seem acutely altered without severe pain lower suspicion for acute hydrocephalus. Blood work here without significant anemia or leukocytosis. No significant electrolyte abnormalities signs of renal dysfunction. No transaminitis noted. No troponin elevation and do not see obvious cardiac arrhythmia findings on EKG. she did head completed here without evidence of acute hydrocephalus or bleeding and appears stability of prior mass. MRI of the brain was completed look for again other occult findings or more subtle changes to this previous mass. MRI of the brain with and without contrast radiology without acute intracranial abnormality with a stable mass without additional masses. This is reassuring. There is no findings concerning for extra-axial fluid collections either. Patient given some steroid and a dose of meclizine. Question if his symptoms could be post viral given recent Covid causing some lab otitis. Patient updated with reassuring findings. Discussed with him following up in the outpatient setting for further care. Patient attempted ambulation here is very unsteady almost falling over. Still feels like he is being pulled to the right side. Again did receive steroids and meclizine. Patient lives alone. Discussed with patient his stability and he does not feel safe going home given that he is so unsteady and falling over. Given this discussed with the hospitalist team. DIAGNOSIS: Dizziness, nausea, ambulatory dysfunction DISPOSITION: Being evaluate by the hospitalist Patient was agreeable with this plan. Past Med/Surg History Medical History (Updated 05/09/21 @ 14:32 by Luis Linder M.D.) ADHD Ankylosing spondylitis lumbar region Esophageal stricture Hematuria HIV (human immunodeficiency virus infection) Rheumatoid arthritis Ureterolithiasis Vomiting Surgical History History of cholecystectomy History of cholecystectomy History of knee surgery Family History Other Stroke Denies family history of Kidney disease Social History Smoking Status: Never smoker Hx Alcohol Use: No Hx Substance Use: No Preferred Language: Cypriot Communication Ability: Effective Visual Impairment: No Limitations Veneer Stacker Required: No Beliefs That Will Affect Care: None Current Living Situation: Significant Other Feels Safe at Home: Yes Assistive Devices: None Allergies Allergies Allergy/AdvReac Type Severity Reaction Status Date / Time ampicillin [From Unasyn] Allergy Severe Lip Unverified 05/09/21 08:18 Swelling sulbactam [From Unasyn] Allergy Severe Lip Unverified 05/09/21 08:18 Swelling naproxen Allergy Mild HEART Verified 05/09/21 08:18 RACED A LITTLE BIT Home Meds Home Medications Medication Instructions Recorded Confirmed bictegravir 50 mg-emtricitabine 1 tab PO HS 12/16/19 05/09/21 200 mg-tenofovir alafenam 25 mg tablet (Biktarvy) acetaminophen 500 mg tablet 1,000 mg PO Q6H PRN 11/30/20 05/09/21 (Tylenol Extra Strength) dextroamphetamine-amphetamine ER 20 mg PO QPM 11/30/20 05/09/21 20 mg 24hr capsule,extend release (Adderall XR) dextroamphetamine-amphetamine ER 60 mg PO QAM 05/09/21 05/09/21 30 mg 24hr capsule,extend release duloxetine 60 mg capsule,delayed 120 mg PO DAILY 05/09/21 05/09/21 release omeprazole 40 mg capsule,delayed 40 mg PO BID 05/09/21 05/09/21 release sildenafil 50 mg tablet 50 mg PO DAILY PRN 05/09/21 05/09/21 Results & Data (ED) Vital Signs Vital Signs - 24 hr 05/09/21 07:07 05/09/21 08:00 05/09/21 08:04 Temperature 36.3 C L Temperature Source Skin Pulse Rate 92 H 100 H 85 Pulse Rate from SpO2 Sensor Pulse Rhythm Regular Regular Pulse Strength Normal Respiratory Rate 20 23 18 Respiratory Effort / Characteristics Non-Labored Spontaneous Respiratory Depth Normal Respiratory Pattern Regular Blood Pressure 144/92 H 142/90 H Blood Pressure Mean 109 107 Pulse Oximetry 96 98 Oxygen Delivery Method Room Air Room Air Sepsis Recent Fever Within 48 Hours No Sepsis New/Unexplained Change in Mental Status N/A Sepsis Action Taken by Nursing No Action Required 05/09/21 08:30 05/09/21 09:08 05/09/21 09:30 Temperature Temperature Source Pulse Rate 91 H 81 79 Pulse Rate from SpO2 Sensor 83 79 Pulse Rhythm Pulse Strength Respiratory Rate 19 18 23 Respiratory Effort / Characteristics Respiratory Depth Respiratory Pattern Blood Pressure 130/91 121/87 133/81 Blood Pressure Mean 104 98 98 Pulse Oximetry 99 96 Oxygen Delivery Method Sepsis Recent Fever Within 48 Hours Sepsis New/Unexplained Change in Mental Status Sepsis Action Taken by Nursing 05/09/21 11:01 05/09/21 11:30 05/09/21 12:00 Temperature Temperature Source Pulse Rate Pulse Rate from SpO2 Sensor 74 71 78 Pulse Rhythm Pulse Strength Respiratory Rate Respiratory Effort / Characteristics Respiratory Depth Respiratory Pattern Blood Pressure 134/76 123/83 130/88 Blood Pressure Mean 95 96 102 Pulse Oximetry 97 97 96 Oxygen Delivery Method Sepsis Recent Fever Within 48 Hours Sepsis New/Unexplained Change in Mental Status Sepsis Action Taken by Nursing 05/09/21 12:32 05/09/21 13:00 Temperature Temperature Source Pulse Rate Pulse Rate from SpO2 Sensor 99 H 86 Pulse Rhythm Pulse Strength Respiratory Rate Respiratory Effort / Characteristics Respiratory Depth Respiratory Pattern Blood Pressure 132/69 119/68 Blood Pressure Mean 90 85 Pulse Oximetry 97 97 Oxygen Delivery Method Sepsis Recent Fever Within 48 Hours Sepsis New/Unexplained Change in Mental Status Sepsis Action Taken by Nursing Laboratory Data Result diagrams: 05/09/21 07:30 05/09/21 07:30 Lab Results 05/09/21 05/09/21 05/09/21 Range/Units 07:30 07:30 07:30 WBC 5.33 (4.8-10.8) K/uL RBC 5.08 (4.7-6.1) M/uL Hgb 14.9 (14.0-18.0) g/dL Hct 45.5 (42-52) % MCV 89.6 (80-100) fL MCH 29.3 (25-34) pg MCHC 32.7 (32-36) g/dL RDW Std Deviation 43.0 (36.4-46.3) fL RDW Coeff of Juan Jose 13.2 (11.5-14.5) % Plt Count 220 (130-400) K/uL MPV 10.1 (7.4-10.4) fL Immature Gran % (Auto) 0.2 % Neut % (Auto) 40.9 % Lymph % (Auto) 44.8 % Slope % (Auto) 6.9 % Eos % (Auto) 6.8 % Baso % (Auto) 0.4 % Neut # (Auto) 2.18 (1.4-6.5) K/uL Lymph # (Auto) 2.39 (1.2-3.4) K/uL Slope # (Auto) 0.37 (0.11-0.59) K/uL Eos # (Auto) 0.36 (0-0.5) K/uL Baso # (Auto) 0.02 (0-0.2) K/uL Immature Gran # (Auto) 0.01 (0.00-0.02) K/uL PT 9.8 (9.0-12.0) Seconds INR 1.0 (0.9-1.1) Sodium 141 (136-145) mmol/L Potassium 3.6 (3.5-5.1) mmol/L Chloride 106 (98-107) mmol/L Carbon Dioxide 30 (21-32) mmol/L Anion Gap 5 (3-11) BUN 15 (6-23) mg/dl Creatinine 1.14 (0.6-1.4) mg/dl Est Cr Clr Drug Dosing 102.6 ml/min Est GFR ( Amer) 92.1 ml/min Est GFR (Non-Af Amer) 79.4 ml/min BUN/Creatinine Ratio 13.2 (10-20) Glucose 104 H (70-99(Fasting)) mg/dl Calcium 9.2 (8.5-10.1) mg/dl Total Bilirubin 0.5 (0.2-1.0) mg/dl AST 21 (13-39) U/L ALT 20 (7-52) U/L Alkaline Phosphatase 100 (34-104) U/L Troponin I < 0.03 (0-0.04) ng/ml Total Protein 7.3 (6.0-8.3) gm/dl Albumin 4.4 (3.4-5.0) gm/dl Globulin 2.9 (2.5-4.0) gm/dl Albumin/Globulin Ratio 1.5 (0.9-2) SARS-CoV-2, RNA, NAAT (NEGATIVE) 05/09/21 Range/Units 13:11 WBC (4.8-10.8) K/uL RBC (4.7-6.1) M/uL Hgb (14.0-18.0) g/dL Hct (42-52) % MCV (80-100) fL MCH (25-34) pg MCHC (32-36) g/dL RDW Std Deviation (36.4-46.3) fL RDW Coeff of Juan Jose (11.5-14.5) % Plt Count (130-400) K/uL MPV (7.4-10.4) fL Immature Gran % (Auto) % Neut % (Auto) % Lymph % (Auto) % Slope % (Auto) % Eos % (Auto) % Baso % (Auto) % Neut # (Auto) (1.4-6.5) K/uL Lymph # (Auto) (1.2-3.4) K/uL Slope # (Auto) (0.11-0.59) K/uL Eos # (Auto) (0-0.5) K/uL Baso # (Auto) (0-0.2) K/uL Immature Gran # (Auto) (0.00-0.02) K/uL PT (9.0-12.0) Seconds INR (0.9-1.1) Sodium (136-145) mmol/L Potassium (3.5-5.1) mmol/L Chloride (98-107) mmol/L Carbon Dioxide (21-32) mmol/L Anion Gap (3-11) BUN (6-23) mg/dl Creatinine (0.6-1.4) mg/dl Est Cr Clr Drug Dosing ml/min Est GFR ( Amer) ml/min Est GFR (Non-Af Amer) ml/min BUN/Creatinine Ratio (10-20) Glucose (70-99(Fasting)) mg/dl Calcium (8.5-10.1) mg/dl Total Bilirubin (0.2-1.0) mg/dl AST (13-39) U/L ALT (7-52) U/L Alkaline Phosphatase (34-104) U/L Troponin I (0-0.04) ng/ml Total Protein (6.0-8.3) gm/dl Albumin (3.4-5.0) gm/dl Globulin (2.5-4.0) gm/dl Albumin/Globulin Ratio (0.9-2) SARS-CoV-2, RNA, NAAT NEGATIVE (NEGATIVE) Administered Medications Discontinued Medications Dexamethasone (Dexamethasone Sod Inj 4 Mg/Ml Vial) Confirm Administered Dose 8 mg .ROUTE .STK-MED ONE Stop: 05/09/21 11:27 Last Admin: 05/09/21 11:30 Dose: 6 mg Documented by: [id number] Gadobutrol (Gadobutrol 65ml Vial) 9.5 ml IV ONCE ONE Stop: 05/09/21 10:36 Last Admin: 05/09/21 10:36 Dose: 9.5 ml Documented by: [id number] Sodium Chloride (Nss) 500 mls @ 999 mls/hr IV .Q31M REBECCA Stop: 05/09/21 08:45 Last Infusion: 05/09/21 09:27 Dose: 0 mls/hr Documented by: [id number] Admin: 05/09/21 08:48 Dose: 999 mls/hr Documented by: [id number] Dexamethasone 6 mg/ Syringe 1.5 mls @ 1 mls/min IV ONE ONE Stop: 05/09/21 11:20 Last Admin: 05/09/21 11:30 Dose: Not Given Documented by: [id number] Meclizine HCl (Meclizine Hcl 25 Mg Tab) 25 mg PO NOW STA Stop: 05/09/21 11:20 Last Admin: 05/09/21 11:30 Dose: 25 mg Documented by: [id number] Imaging Data Radiologist's Impression: Brain MRI 05/09/21 08:04 MR brain wo/w con CLINICAL HISTORY: visual changes, dizzy, hx brain mass. COMPARISON STUDY: 09/19/[address] of the brain from 05/09/2021 TECHNIQUE: Multiplanar multisequence images of the brain were performed before and after Gadavist, 9.5 mL of IV contrast. Diffusion weighted imaging and ADC mapping was also performed. FINDINGS: Compared to the previous studies, there is a stable approximately 12 x 6 x 5 mm mass within the cistern at the cerebellopontine angle on the left. It minimally enhances and is most characteristic of a small meningioma or schwannoma. It again abuts the left 5th cranial nerve with no significant interval change from the previous MRI. Extra-axial space: There is no evidence for a subdural hematoma, There are no e xtra-axial fluid collections. Ventricles and cisterns: The ventricles are normal in size and configuration. There is no evidence for midline shift or mass effect. Parenchyma: On noncontrast images, there is no evidence for an acute hemorrhage or infarct. No acute diffusion abnormalities are noted on diffusion weighted imaging or ADC mapping. There is normal tucker-white differentiation. The sulci and gyri appear normal without effacement. The midline structures are unremarkable. The posterior fossa structures appear normal. On postcontrast images, there is no other evidence for enhancing mass lesion. Osseous structures: The paranasal sinuses are well aerated. The mastoid air cells are well aerated. Soft tissues: No focal soft tissue abnormalities are identified. IMPRESSION: No acute intracranial abnormalities. Stable enhancing mass within the left cerebellopontine angle as described above. This most characteristic of a meningioma versus a [place] normal. No additional enhancing masses are seen. ACT 112: Negative or not required by law. Electronically signed by: Darrick Ag M.D. 05/09/2021 11:[address] 05/09/21 08:[address] DOSE: 614.27 mGy.cm HISTORY: dizzy, nausea, hx brain mass TECHNIQUE: Multiaxial CT images of the head were performed without the use of intravenous contrast. Automated exposure control was utilized for this study. A dose lowering technique was utilized adhering to the principles of ALARA. Comparison: Brain MRI 09/19/2020. Head CT 05/10/2011. Findings: The paranasal sinuses and mastoid air cells are clear. The calvarium and skull base are intact. The ventricles and sulci are within normal limits. There is no hematoma, midline shift, or acute infarct. Redemonstration of the 8 mm extra-axial lesion within the left cerebellopontine angle cistern. This is not significantly changed. Impression: 1. No acute infarct or intracranial hemorrhage. 2. No change in the 8 mm extra-axial lesion within the left cerebellopontine angle cistern. This may represent a meningioma or schwannoma. ACT 112: Negative or not required by law. Electronically signed by: Cesar Hernandez M.D. 05/09/2021 9:28 AM Discharge Plan Visit Data Chief Complaint: Dizziness Stated Complaint: DIZZY,BODY PULLING RIGHT,VOMITING ED Provider: Luis Linder ED Midlevel Provider: Jaquan Medrano Discharge Problem: Dizziness, Nausea, Ambulatory dysfunction Patient Disposition: Being Evaluated by Hospitalist Prescriptions Prescriptions: No Action Biktarvy 50-200-25 mg tablet 1 tab PO HS RF: 0 acetaminophen [Tylenol Extra Strength] 500 mg Tablet 1,000 mg PO Q6H PRN (Reason: Pain) RF: 0 dextroamphetamine-amphetamine [Adderall XR] 20 mg capsule,extended release 24hr 20 mg PO QPM RF: 0 sildenafil 50 mg tablet 50 mg PO DAILY PRN (Reason: Erectile Dysfunction) RF: 0 dextroamphetamine-amphetamine 30 mg capsule,extended release 24hr 60 mg PO QAM RF: 0 duloxetine 60 mg capsule,delayed release(DR/EC) 120 mg PO DAILY RF: 0 omeprazole 40 mg Capsule,Delayed Release(Dr/Ec) 40 mg PO BID RF: 0 Referrals Referrals: Martín Medina DO [Physician] -
[2021-05-09] MEDS ORDERED: SODIUM CHLORIDE 0.9% 500 ML IV SCH (08:15)
[2021-05-09 08:18] LABS: Basophils # (auto) 0.02 K/uL (0-0.2); Basophils % (auto) 0.4 %; Eosinophils # (auto) 0.36 K/uL (0-0.5); Eosinophils % (auto) 6.8 %; Hematocrit (blood only) 45.5 % (42-52); Hemoglobin 14.9 g/dL (14.0-18.0); Immature Granulocytes # (auto) 0.01 K/uL (0.00-0.02); Immature Granulocytes % (auto) 0.2 %; Lymphocytes # (auto) 2.39 K/uL (1.2-3.4); Lymphocytes % (auto) 44.8 %; Mean Corpuscular Hemoglobin 29.3 pg (25-34); Mean Corpuscular Hgb Conc 32.7 g/dL (32-36); Mean Corpuscular Volume 89.6 fL (80-100); Mean Platelet Volume 10.1 fL (7.4-10.4); Monocytes # (auto) 0.37 K/uL (0.11-0.59); Monocytes % (auto) 6.9 %; Neutrophils # (auto) 2.18 K/uL (1.4-6.5); Neutrophils % (auto) 40.9 %; Platelet Count 220 K/uL (130-400); RDW Coefficient of Variation 13.2 % (11.5-14.5); Red Blood Count 5.08 M/uL (4.7-6.1); White Blood Count 5.33 K/uL (4.8-10.8)
[2021-05-09 08:27] LABS: Prothrombin Time 9.8 Seconds (9.0-12.0)
[2021-05-09 08:40] LABS: Troponin I < 0.03 ng/ml (0-0.04)
[2021-05-09 08:41] LABS: Alanine Aminotransferase 20 U/L (7-52); Albumin Globulin Ratio 1.5 (0.9-2); Albumin Level 4.4 gm/dl (3.4-5.0); Alkaline Phosphatase 100 U/L (34-104); Anion Gap 5 (3-11); Aspartate Aminotransferase 21 U/L (13-39); BUN Creatinine Ratio 13.2 (10-20); Bilirubin,Total 0.5 mg/dl (0.2-1.0); Blood Urea Nitrogen 15 mg/dl (6-23); Calcium 9.2 mg/dl (8.5-10.1); Carbon Dioxide 30 mmol/L (21-32); Chloride 106 mmol/L (98-107); Creatinine Clr Calc Pharmacy 102.6 ml/min; Est GFR (African American) 92.1 ml/min; Est GFR (Non-African American) 79.4 ml/min; Globulin 2.9 gm/dl (2.5-4.0); Glucose 104 mg/dl (70-99(Fasting)); Potassium 3.6 mmol/L (3.5-5.1); Sodium 141 mmol/L (136-145); Total Protein 7.3 gm/dl (6.0-8.3)
--- NOTE | 2021-05-09 09:29 | CT Scan Report ---
HEAD CT NONCONTRAST CT DOSE: 614.27 mGy.cm HISTORY: dizzy, nausea, hx brain mass TECHNIQUE: Multiaxial CT images of the head were performed without the use of intravenous contrast. A utomated exposure control was utilized for this study. A dose lowering technique was utilized adheri ng to the principles of ALARA. Comparison: Brain MRI 09/19/2020. Head CT 05/10/2011. Findings: The paranasal sinuses and mastoid air cells are clear. The calvarium and skull base are int act. The ventricles and sulci are within normal limits. There is no hematoma, midline shift, or acute infarct. Redemonstration of the 8 mm extra-axial lesion within the left cerebellopontine angle ciste rn. This is not significantly changed. Impression: 1. No acute infarct or intracranial hemorrhage. 2. No change in the 8 mm extra-axial lesion within the left cerebellopontine angle cistern. This may represent a meningioma or schwannoma. ACT 112: Negative or not required by law. Electronically signed by: Cesar Hernandez M.D. 05/09/2021 9:28 AM
--- NOTE | 2021-05-09 09:56 | Emergency Department Note ---
ED Visit Note Patient seen with Dr. Linder, please see his note for details.
[2021-05-09] MEDS ORDERED: GADOBUTROL 65ML VIAL IV ONE (10:35)
--- NOTE | 2021-05-09 11:10 | Magnetic Resonance Report ---
MR brain wo/w con CLINICAL HISTORY: visual changes, dizzy, hx brain mass. COMPARISON STUDY: 09/19/[address] of the brain from 05/09/2021 TECHNIQUE: Multiplanar multisequence images of the brain were performed before and after Gadavist, 9 .5 mL of IV contrast. Diffusion weighted imaging and ADC mapping was also performed. FINDINGS: Compared to the previous studies, there is a stable approximately 12 x 6 x 5 mm mass within the cistern at the cerebellopontine angle on the left. It minimally enhances and is most characteris tic of a small meningioma or schwannoma. It again abuts the left 5th cranial nerve with no significan t interval change from the previous MRI. Extra-axial space: There is no evidence for a subdural hematoma, There are no extra-axial fluid gagan ections. Ventricles and cisterns: The ventricles are normal in size and configuration. There is no evidence f or midline shift or mass effect. Parenchyma: On noncontrast images, there is no evidence for an acute hemorrhage or infarct. No acute diffusion abnormalities are noted on diffusion weighted imaging or ADC mapping. There is normal tucker -white differentiation. The sulci and gyri appear normal without effacement. The midline structures a re unremarkable. The posterior fossa structures appear normal. On postcontrast images, there is no other evidence for enhancing mass lesion. Osseous structures: The paranasal sinuses are well aerated. The mastoid air cells are well aerated. Soft tissues: No focal soft tissue abnormalities are identified. IMPRESSION: No acute intracranial abnormalities. Stable enhancing mass within the left cerebellopont ine angle as described above. This most characteristic of a meningioma versus a [place] normal. No addit ional enhancing masses are seen. ACT 112: Negative or not required by law. Electronically signed by: Darrick Ag M.D. 05/09/2021 11:08 AM
[2021-05-09] MEDS ORDERED: MECLIZINE HCL 25 MG TAB PO STA (11:19)
[2021-05-09] MEDS ORDERED: dexAMETHasone 6 MG in SYRINGE 0 ML IV ONE (11:19)
[2021-05-09] MEDS ORDERED: DEXAMETHASONE SOD INJ 4 MG/ML VIAL ONE (11:26)
--- NOTE | 2021-05-09 11:55 | Electrocardiogram Report ---
Test Reason : Blood Pressure : / mmHG Vent. Rate : 077 BPM Atrial Rate : 077 BPM P-R Int : 144 ms QRS Dur : 082 ms QT Int : 378 ms P-R-T Axes : 054 036 037 degrees QTc Int : 427 ms Normal sinus rhythm Normal ECG When compared with ECG of 19-SEP-2020 15:43, No significant change was found Confirmed by Haim Carrasco ([id number]) on 05/09/2021 11:55:40 AM Referred By: REFERRED SELF Confirmed By:Haim Carrasco
--- NOTE | 2021-05-09 14:27 | History & Physical Report ---
Date of Service May 09, 2021 Assessment & Plan (1) Dizziness: (2) Ambulatory dysfunction: Plan: Vertigo DDX: vestibular neuritis, BPPV, brain mass Patient is a 40-year-old male with PMH HIV, esophageal stricture, brain mass presented to ER with complaint of intermittent dizziness described as objects spinning and being on "tilt a whirl" x 2-3 weeks. URI symptoms preceded dizziness. Today worse dizziness with N/V, sensation being pulled to right side and difficulty with ambulation. Denies any new medications. In ER MRI brain without acute changes. Labs unremarkable. In ER Was given dexamethasone, meclizine, NSS 500ml and still symptomatic with dizziness and unable to ambulate. Obtain orthostatics Start prednisone 60mg daily x 4 days, with plan to taper Neuro checks PT eval for possible Venkat maneuver Neurology consult CBC, BMP in am (3) Brain mass: Plan: [place] [facility] [place] now [place] neurology at [facility] for brain mass that can't be differentiated - possible meningoma vs schwannoma. Last MRI Brain on 11/2020 with mass left cerebellopontine angle cistern, inferior to and inseparable from the left trigeminal nerve cisternal segment, measuring 0.6 x 1.3 x 0.9 cm Today MRI brain: Compared to the previous studies, there is a stable approximately 12 x 6 x 5 mm mass within the cistern at the cerebellopontine angle on the left. It minimally enhances and is most characteristic of a small meningioma or schwannoma. It again abuts the left 5th cranial nerve with no significant interval change from the previous. (4) HIV (human immunodeficiency virus infection): Plan: [place] [facility] [place] Last labs 11/2020 undetectable Continue Biktarvy (5) ADHD: Plan: Continue dextroamphetamine-amphetamine (6) Esophageal stricture: Plan: Continue PPI DVT Prophylaxis SCDs Follows with Payal Herrera PA-C for routine care Pt was seen and care coordinated with Dr Booth. See addendum History of Present Illness Chief Complaint: Dizziness Primary Care Provider: Payal Hererra PA-C Patient is a 40-year-old male with PMH HIV, esophageal stricture, brain mass presented to ER with complaint of dizziness. Patient reports 04/05/2021 and onset of loss of taste and smell, nasal congestion. 04/17/2021 had his first COVID-19 vaccine. Reports the following day started with dizziness described as things spinning around him and being on a "told the world". With associated nausea and vomiting. Patient states 04/30/2021 started with sore throat, nasal congestion, headache. He was seen at PCPs office and had negative influenza and COVID-19 testing at that time. Patient reports congestion has improved. Denies otalgia. He reports chronic sensation of fluid coming from his right ear, denies any change. Patient states intermittent dizziness has continued and today was worse. States this morning woke up and got out of bed and had severe spinning type dizziness with nausea and vomiting. With attempted ambulation he feels like he is being pulled to the right. When driving today had dizziness and double vision, nausea and vomiting and had to hide puller. Previously has [place] [facility] [place] now following with neurology at [facility] for brain mass that can't be differentiated - possible meningoma vs schwannoma. Last MRI Brain on 11/2020 with mass left cerebellopontine angle cistern, inferior to and inseparable from the left trigeminal nerve cisternal segment, measuring 0.6 x 1.3 x 0.9 cm. Denies any falls. Denies syncope, head injury. Denies fever/chills, diaphoresis, diarrhea, MONAE, vision loss, neck pain, CP, SOB, orthopnea, palpitations, cough, sore throat, choking, otalgia, rhinorrhea, abdominal pain, paresthesias, weakness, extremity weakness, extremity edema, rashes, urinary symptoms. In ER MRI brain without acute changes. Labs unremarkable. Was given dexamethasone, meclizine, NSS 500ml and still symptomatic with dizziness and unable to ambulate. Allergies Allergy/AdvReac Type Severity Reaction Status Date / Time ampicillin [From Unasyn] Allergy Severe Lip Unverified 05/09/21 08:18 Swelling sulbactam [From Unasyn] Allergy Severe Lip Unverified 05/09/21 08:18 Swelling naproxen Allergy Mild HEART Verified 05/09/21 08:18 RACED A LITTLE BIT Home Medications Medication Instructions Recorded Confirmed Type bictegravir 50 mg-emtricitabine 1 tab PO HS 12/16/19 05/09/21 History 200 mg-tenofovir alafenam 25 mg tablet (Biktarvy) acetaminophen 500 mg tablet 1,000 mg PO Q6H PRN 11/30/20 05/09/21 History (Tylenol Extra Strength) dextroamphetamine-amphetamine ER 20 mg PO QPM 11/30/20 05/09/21 History 20 mg 24hr capsule,extend release (Adderall XR) dextroamphetamine-amphetamine ER 60 mg PO QAM 05/09/21 05/09/21 History 30 mg 24hr capsule,extend release duloxetine 60 mg capsule,delayed 120 mg PO DAILY 05/09/21 05/09/21 History release omeprazole 40 mg capsule,delayed 40 mg PO BID 05/09/21 05/09/21 History release sildenafil 50 mg tablet 50 mg PO DAILY PRN 05/09/21 05/09/21 History Past Med/Surg History Medical History (Updated 05/09/21 @ 14:50 by Emily Logan PA-C) ADHD Ankylosing spondylitis lumbar region Brain mass Esophageal stricture Hematuria HIV (human immunodeficiency virus infection) Rheumatoid arthritis Ureterolithiasis Vomiting Surgical History (Updated 05/09/21 @ 15:04 by Emily Logan PA-C) History of cholecystectomy History of esophagogastroduodenoscopy (EGD) History of knee surgery Family History (Updated 05/09/21 @ 15:03 by Emily Logan PA-C) Other Coronary heart disease Hypertension Stroke Denies family history of Kidney disease Social History Smoking Status: Never smoker Hx Alcohol Use: No Hx Substance Use: No Preferred Language: [place] Communication Ability: Effective Visual Impairment: No Limitations Manager Collection Required: No Beliefs That Will Affect Care: None Current Living Situation: Significant Other Feels Safe at Home: Yes Assistive Devices: None Review of Systems Review of Systems: All systems reviewed & are unremarkable except as noted in HPI & below Physical Exam Physical Exam: General: no distress, WDWN Head: normocephalic, atraumatic Eyes: PERRL, EOM's intact, conjunctiva non-injected, anicteric ENT: normal inspection external ears, nose, mucous membranes moist Neck: supple, trachea midline Lungs: clear, no respiratory distress, no wheezing/rhonchi/rales CV: RRR, no murmur, no pretibial edema Abd: normal BS, soft, non-tender Ext: no cyanosis, no calf tenderness Neuro: A&O x 3, +lateral nystagmus, no other focal deficits noted, normal affect Skin: warm, dry Results & Data Results & Data ([facility]) Vital Signs (Past 12 Hours) Vital Signs Temp Pulse Resp BP Pulse Ox 05/09/21 13:00 119/68 97 05/09/21 12:32 132/69 97 05/09/21 12:00 130/88 96 05/09/21 11:30 123/83 97 05/09/21 11:01 134/76 97 05/09/21 09:30 79 23 133/81 96 05/09/21 09:08 81 18 121/87 99 05/09/21 08:30 91 H 19 130/91 05/09/21 08:04 85 18 98 05/09/21 08:00 100 H 23 142/90 H 05/09/21 07:07 36.3 C L 92 H 20 144/92 H 96 Laboratory Results Short CBC 05/09/21 Range/Units 07:30 WBC 5.33 (4.8-10.8) K/uL Hgb 14.9 (14.0-18.0) g/dL Hct 45.5 (42-52) % Plt Count 220 (130-400) K/uL BMP 05/09/21 07:30 Sodium 141 Potassium 3.6 Chloride 106 Carbon Dioxide 30 BUN 15 Creatinine 1.14 Glucose 104 H Calcium 9.2 Cardiac Enzymes 05/09/21 Range/Units 07:30 Troponin I < 0.03 (0-0.04) ng/ml Liver Function 05/09/21 Range/Units 07:30 Total Bilirubin 0.5 (0.2-1.0) mg/dl AST 21 (13-39) U/L ALT 20 (7-52) U/L Alkaline Phosphatase 100 (34-104) U/L Albumin 4.4 (3.4-5.0) gm/dl Diagnostic Findings Brain MRI 05/09/21 08:04 MR brain wo/w con CLINICAL HISTORY: visual changes, dizzy, hx brain mass. COMPARISON STUDY: 09/19/[address] of the brain from 05/09/2021 TECHNIQUE: Multiplanar multisequence images of the brain were performed before and after Gadavist, 9.5 mL of IV contrast. Diffusion weighted imaging and ADC mapping was also performed. FINDINGS: Compared to the previous studies, there is a stable approximately 12 x 6 x 5 mm mass within the cistern at the cerebellopontine angle on the left. It minimally enhances and is most characteristic of a small meningioma or schwannoma. It again abuts the left 5th cranial nerve with no significant interval change from the previous MRI. Extra-axial space: There is no evidence for a subdural hematoma, There are no extra-axial fluid collections. Ventricles and cisterns: The ventricles are normal in size and configuration. There is no evidence for midline shift or mass effect. Parenchyma: On noncontrast images, there is no evidence for an acute hemorrhage or infarct. No acute diffusion abnormalities are noted on diffusion weighted imaging or ADC mapping. There is normal tucker-white differentiation. The sulci and gyri appear normal without effacement. The midline structures are unremarkable. The posterior fossa structures appear normal. On postcontrast images, there is no other evidence for enhancing mass lesion. Osseous structures: The paranasal sinuses are well aerated. The mastoid air cells are well aerated. Soft tissues: No focal soft tissue abnormalities are identified. IMPRESSION: No acute intracranial abnormalities. Stable enhancing mass within the left cerebellopontine angle as described above. This most characteristic of a meningioma versus a [place] normal. No additional enhancing masses are seen. ACT 112: Negative or not required by law. Electronically signed by: Darrick Ag M.D. 05/09/2021 11:[address] 05/09/21 08:[address] DOSE: 614.27 mGy.cm HISTORY: dizzy, nausea, hx brain mass TECHNIQUE: Multiaxial CT images of the head were performed without the use of intravenous contrast. Automated exposure control was utilized for this study. A dose lowering technique was utilized adhering to the principles of ALARA. Comparison: Brain MRI 09/19/2020. Head CT 05/10/2011. Findings: The paranasal sinuses and mastoid air cells are clear. The calvarium and skull base are intact. The ventricles and sulci are within normal limits. There is no hematoma, midline shift, or acute infarct. Redemonstration of the 8 mm extra-axial lesion within the left cerebellopontine angle cistern. This is not significantly changed. Impression: 1. No acute infarct or intracranial hemorrhage. 2. No change in the 8 mm extra-axial lesion within the left cerebellopontine angle cistern. This may represent a meningioma or schwannoma. ACT 112: Negative or not required by law. Electronically signed by: Cesar Hernandez M.D. 05/09/2021 9:28 AM Supervising Physician Co-Signing Physician Notes Patient is a 40-year-old male with history of esophageal stricture, HIV, COVID- 19 infection and other medical problems presents with history of dizziness which he describes as room spinning associated with nausea, vomiting which worsened today. Patient states having positional dizziness previously as well. He reports having transient double vision this morning which currently resolved. He denies any focal weakness, head trauma. He is being evaluated by neurosurgery for brain mass which is thought to be possible meningioma vs Schwannoma. He denies any facial deformity, dysphagia, slurred speech, bowel or bladder incontinence, tinnitus, change in hearing. Please review HPI for complete details of presentation. Blood work is unremarkable. Covid screen is currently negative. MRI brain showed no acute intracranial abnormalities. Showed stable enhancing mass within the left cerebellopontine angle. On exam patient is well-built and nourished, no apparent distress, normocephalic atraumatic, EOMI, normal breath sounds, clear to auscultation, S1-S2, no murmur, no pedal edema, abdomen soft, nontender, normal bowel sounds, alert, awake, oriented, grossly no focal deficits,+ nystagmus, right decorative cutting machine tender to palpate, multiple tattoos. Patient is admitted for management of dizziness/vertigo. DD: Vestibular neuritis, BPPV in setting of existing brain mass at left cerebellopontine angle. Will start on prednisone taper course. Agree with neurology consult for input. PT for Venkat's maneuver. Check orthostatics. Fall precautions. Patient denies any recent medication changes although patient is on Biktarvy for HIV management which could contribute to dizziness in 2% of the cases. Will add meclizine as needed. I personally reviewed the record. Patient is interviewed and examined at bedside. Patient's care is coordinated with Emily Logan PA-C. Please refer to the documentation above for details of patient's presentation and for discussion of other issues.
[2021-05-09] MEDS ORDERED: LORazepam 1 MG TAB PO STA (14:49)
--- NOTE | 2021-05-09 16:04 | XRay Report ---
XR foot RT min 3V routine CLINICAL HISTORY: foot pain. No history of injury COMPARISON STUDY: No previous studies for comparison. TECHNIQUE: 3 right foot views FINDINGS: Bones: There is no evidence for an acute fracture or dislocation. There is no lytic or blastic lesion . Joints: There is mild narrowing of the IP joints and first MTP joint. The remaining joint spaces are maintained. The bones are in anatomic alignment. Soft tissues: There is no focal soft tissue abnormality. There is no radiopaque foreign body. IMPRESSION: No acute osseous pathology. Mild joint space narrowing with no significant secondary dege nerative changes. ACT 112: Negative or not required by law. Electronically signed by: Darrick Ag M.D. 05/09/2021 4:03 PM
[2021-05-09 16:42] LABS: Appearance Urine Clear (Clear); Bilirubin Urine Negative (Negative); Blood Urine Negative (Negative); Color Urine Yellow; Glucose Urine UA Negative (Negative); Ketones Urine Negative (Negative); Leukocyte Esterase Urine Negative (Negative); Nitrite Urine Negative (Negative); Protein Urine Negative (Negative); Specific Gravity Urine 1.025 (1.000-1.030); Urobilinogen Urine Negative (Negative)
[2021-05-09] MEDS ORDERED: MECLIZINE HCL 25 MG TAB PO PRN (17:10)
[2021-05-09] MEDS ORDERED: ONDANSETRON INJ 2 MG/ML 2 ML VIAL IV PRN (17:10)
[2021-05-09] MEDS ORDERED: ACETAMINOPHEN 325 MG TAB PO PRN (17:10)
[2021-05-09] MEDS: PANTOprazole 40 MG TAB PO SCH (22:31)
[2021-05-10] MEDS: DULoxetine HCL 60 MG CAP PO SCH (08:09)
[2021-05-10] MEDS: PANTOprazole 40 MG TAB PO SCH ×2 (08:09→21:15)
[2021-05-10] MEDS: predniSONE 20 MG TAB PO SCH (08:09)
[2021-05-10 08:20] LABS: Hematocrit (blood only) 42.3 % (42-52); Hemoglobin 13.9 g/dL (14.0-18.0); Mean Corpuscular Hemoglobin 28.9 pg (25-34); Mean Corpuscular Hgb Conc 32.9 g/dL (32-36); Mean Corpuscular Volume 87.9 fL (80-100); Mean Platelet Volume 9.7 fL (7.4-10.4); Platelet Count 229 K/uL (130-400); RDW Standard Deviation 41.7 fL (36.4-46.3); Red Blood Count 4.81 M/uL (4.7-6.1); White Blood Count 10.04 K/uL (4.8-10.8)
[2021-05-10] MEDS ORDERED: DEXTROAMPHETAMINE/AMPHETAMINE ER 10 MG CAP PO SCH ×2 (09:00)
[2021-05-10 09:39] LABS: BUN Creatinine Ratio 13.2 (10-20); Calcium 8.7 mg/dl (8.5-10.1); Creatinine Clr Calc Pharmacy 128.7 ml/min; Est GFR (African American) 120.9 ml/min; Est GFR (Non-African American) 104.3 ml/min; Potassium 3.6 mmol/L (3.5-5.1)
[2021-05-10] MEDS: AMPHETAMINE ASP/SULF/DEXTRAMPH ER 20 MG CAP PO SCH (10:12)
--- NOTE | 2021-05-10 12:21 | Neurology Consultation ---
Date of Consultation May 10, 2021 Assessment & Plan (1) Dizziness: 1. possible vestibular migraine and or viral cause of dizziness 2. offered daily medications for migraine treatment but he is hesitant 3. magnesium 400 mg and riboflavin 400 mg daily are benign treatment could be started 4. keep well hydrated 5. too much Tylenol can cause over use headaches- needs to decrease use. once medically stable can be discharged to home. follow up with neurology prn or if he decided he would like his migraine treated (2) Brain mass: 1. neurosurgery in [place] recommends repeat MRI every 3 months has been stable Supervising Physician Co-Signing Physician Notes Patient was seen and examined. Admitted with sudden onset ataxia / difficulty ambulating. Has chronic frequent headaches and intermittent episodes of dizziness. On gait eval he tends to grab the door and remy. ? functional. No nystagmus noted. No ataxia with finger to nose or heel to watt. Noting largely positional component which would suggest peripheral etiology. 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 Following with NSG. In regards to his frequent headaches which may be contributing recomend starting Depakote 250 mg QHS. If headaches improves chronic dizziness episodes may also. Patient agreeable. OK to discharge to home when patient is agreeable. Follow up with neurology in 2-3 months. Please call with any additional questions or concerns. History of Present Illness Reason for Consultation: dizziness hx of brain mass Requesting Physician: Fer Cuevas MD Attending Physician: Fer Cuevas MD History of Present Illness Saturnino is a 40 year old male with PMH- HIV, esophageal stricture, brain mass presented to [facility] ER 05/09/21 with complaint of dizziness. ON 04/05/2021 he had an onset of loss of taste and smell, nasal congestion. 04/17/2021 had his first COVID-19 vaccine. the next day started with dizziness described as things spinning around him. He had associated nausea and vomiting. On 04/30/2021 started with sore throat, nasal congestion, headache. He was seen at PCPs office and had negative influenza and COVID-19 testing at that time. He has a chronic sensation of fluid coming from his right ear, denies any change. The intermittent dizziness has continued and today was worse. When he got up out of bed, he had severe spinning type dizziness with nausea and vomiting. He attempted ambulation he feels like he is being pulled to the right. When driving today had dizziness and double vision, nausea and vomiting and had to kidney puller. He is followed with neurology/neurosurgery at [facility] however now following with neurology at [facility] for brain mass that can't be differentiated - possible meningoma vs schwannoma. Last MRI Brain on 11/2020 with mass left cerebellopontine angle cistern, inferior to and inseparable from the left trigeminal nerve cisternal segment, measuring 0.6 x 1.3 x 0.9 cm. He has had similar episodes in the past that were associated with headaches. He is taking alot of tylenol (daily). He has never been on a preventive medications. denies CP, SOB, abdominal pain, N, V. Allergies Allergy/AdvReac Type Severity Reaction Status Date / Time ampicillin [From Unasyn] Allergy Severe Lip Unverified 05/09/21 08:18 Swelling sulbactam [From Unasyn] Allergy Severe Lip Unverified 05/09/21 08:18 Swelling naproxen Allergy Mild HEART Verified 05/09/21 08:18 RACED A LITTLE BIT Home Medications Medication Instructions Recorded Confirmed Type bictegravir 50 mg-emtricitabine 1 tab PO HS 12/16/19 05/09/21 History 200 mg-tenofovir alafenam 25 mg tablet (Biktarvy) acetaminophen 500 mg tablet 1,000 mg PO Q6H PRN 11/30/20 05/09/21 History (Tylenol Extra Strength) dextroamphetamine-amphetamine ER 20 mg PO QPM 11/30/20 05/09/21 History 20 mg 24hr capsule,extend release (Adderall XR) dextroamphetamine-amphetamine ER 60 mg PO QAM 05/09/21 05/09/21 History 30 mg 24hr capsule,extend release duloxetine 60 mg capsule,delayed 120 mg PO DAILY 05/09/21 05/09/21 History release omeprazole 40 mg capsule,delayed 40 mg PO BID 05/09/21 05/09/21 History release sildenafil 50 mg tablet 50 mg PO DAILY PRN 05/09/21 05/09/21 History Patient History Medical History (Updated 05/09/21 @ 14:50 by Emily Logan PA-C) ADHD Ankylosing spondylitis lumbar region Brain mass Esophageal stricture Hematuria HIV (human immunodeficiency virus infection) Rheumatoid arthritis Ureterolithiasis Vomiting Surgical History (Updated 05/09/21 @ 15:04 by Emily Logan PA-C) History of cholecystectomy History of esophagogastroduodenoscopy (EGD) History of knee surgery Family History (Updated 05/09/21 @ 15:03 by Emily Logan PA-C) Other Coronary heart disease Hypertension Stroke Denies family history of Kidney disease Social History Smoking Status: Never smoker Do You Dip or Chew Tobacco: No; Hx Alcohol Use: No Hx Substance Use: No Preferred Language: Samoan Communication Ability: Effective Visual Impairment: No Limitations Clinical Documentation Consultant Required: No Beliefs That Will Affect Care: None Current Living Situation: Alone Feels Safe at Home: Yes Safety Concerns: Feels Safe At This Time Assistive Devices: None Review of Systems Review of Systems: All systems reviewed & are unremarkable except as noted in HPI & below Physical Exam Physical Exam: Physical Exam: Constitutional: appearance nourished, healthy and normal Ears, Nose, Mouth and Throat: mucous membranes moist, no injection and skin normal, eyes normal Cardiovascular: normal S-1 and S-2 and regular rate and rhythm Respiratory: clear to auscultation (CTA) and no rales, ronchi or wheeze Musculoskeletal: no peripheral edema Skin: no stigmata of neurocutaneous disease noted and normal and intact, multiple tattoos on arms nose stud Eyes: extraocular muscles intact (EOMI) and pupils equal, round and reactive to light (PERRL) no nystagmus NEUROLOGIC EXAMINATION: Mental status: Alert and interactive Oriented to full date and location Oriented to person Speech fluent with no evidence of aphasia Cranial Nerves Normal findings for Cranial Nerves II - XII Reflexes: Deep tendon reflexes were symmetrical and graded 2/5. Sensory: light cool touch Coordination: finger to nose, heel to watt Gait/Stance: Posture normal. Gait staggering gait with passing through doorways and turning Motor: Negative for pronator drift of out stretched arms with eyes closed. Strength: hand dukey rider biceps triceps 5/5 bilaterally hip flex 5/5 bilaterally Results & Data ([facility]) Vital Signs (Past 12 Hours) Vital Signs Temp Pulse Pulse Resp BP Pulse Ox 05/10/21 11:37 36.7 C 98 H 18 127/65 96 05/10/21 07:46 36.7 C 106 H 18 156/75 H 95 05/10/21 07:00 100 H 05/10/21 04:06 36.7 C 106 H 20 146/74 H 96 Laboratory Results Abnormal lab results 05/10/21 05/10/21 Range/Units 08:03 08:03 Hgb 13.9 L (14.0-18.0) g/dL Glucose 163 H (70-99(Fasting)) mg/dl Diagnostic Findings MRI brain-No acute intracranial abnormalities. Stable enhancing mass within the left cerebellopontine angle as described above. This most characteristic of a meningioma versus a Roxana normal. No additional enhancing masses are seen. CT head-No acute infarct or intracranial hemorrhage. . No change in the 8 mm extra-axial lesion within the left cerebellopontine angle cistern. This may represent a meningioma or schwannoma. foot xray-No acute osseous pathology. Mild joint space narrowing with no significant secondary degenerative changes.
--- NOTE | 2021-05-10 14:10 | Hospitalist Progress Note ---
Date of Service May 10, 2021 Assessment & Plan (1) Dizziness: (2) Ambulatory dysfunction: Plan: Vertigo DDX: vestibular neuritis, BPPV, brain mass Patient is a 40-year-old male with PMH HIV, esophageal stricture, brain mass presented to ER with complaint of intermittent dizziness described as objects spinning and being on "tilt a whirl" x 2-3 weeks. URI symptoms preceded dizziness. Today worse dizziness with N/V, sensation being pulled to right side and difficulty with ambulation. Denies any new medications. In ER MRI brain without acute changes. Labs unremarkable. In ER Was given dexamethasone, meclizine, NSS 500ml and still symptomatic with dizziness and unable to ambulate. Obtain orthostatics-not yet done Start prednisone 60mg daily x 4 days, with plan to taper Neuro checks-remain unremarkable PT eval for possible Venkat maneuver Neurology consult-appreciate input and recommendation (3) Brain mass: Plan: Previously has followed with neurology/neurosurgery at [facility] however now following with neurology at [facility] for brain mass that can't be differentiated - possible meningoma vs schwannoma. Last MRI Brain on 11/2020 with mass left cerebellopontine angle cistern, inferior to and inseparable from the left trigeminal nerve cisternal segment, measuring 0.6 x 1.3 x 0.9 cm Today MRI brain: Compared to the previous studies, there is a stable approximately 12 x 6 x 5 mm mass within the cistern at the cerebellopontine angle on the left. It minimally enhances and is most characteristic of a small meningioma or schwannoma. It again abuts the left 5th cranial nerve with no significant interval change from the previous. Recommended MRI every 3-month as per neurosurgeon in [place] (4) HIV (human immunodeficiency virus infection): Plan: Follows with ID at [facility] Last labs 11/2020 undetectable Continue Biktarvy (5) ADHD: Plan: Continue dextroamphetamine-amphetamine (6) Esophageal stricture: Plan: Continue PPI DVT Prophylaxis SCDs Follows with Payal Herrera PA-C for routine care Admission and Anticipated Discharge Date Admission Date: May 09, 2021 Subjective 05/10/2021 The patient was seen and examined in medical telemetry unit He was admitted with dizziness, unsteadiness and history of diplopia Has been feeling much better and denies any symptoms lying in bed Review of Systems Review of Systems: All systems reviewed and are unremarkable except as noted below Neurologic: Dizziness and unsteadiness with ambulation Physical Exam Physical Exam: Lying in bed comfortably Constitutional: well developed, well nourished and + obese; not ill appearing Eyes: PERRL, conjunctivae normal, anicteric sclerae ENMT: external ear and nose normal, oropharynx normal Neck: trachea midline, no thyromegaly Respiratory: no respiratory distress Auscultation: lungs clear to auscultation bilaterally Cardiovascular: Rate/Rhythm: regular rate and regular rhythm; not tachycardic Heart Sounds: normal S1 and normal S2; no murmur Extremities: no edema Gastrointestinal (Abdomen): Inspection/Auscultation: abdomen not distended Percussion/Palpation: abdomen soft; abdomen nontender Musculoskeletal: No acute arthritis in any joint Neurologic: Alert, awake and oriented x3. No diplopia on examination, no focal sensory no motor deficit appreciated Results & Data Results & Data ([facility]) Vital Signs (Past 12 Hours) Vital Signs Temp Pulse Pulse Resp BP Pulse Ox 05/10/21 11:37 36.7 C 98 H 18 127/65 96 05/10/21 07:46 36.7 C 106 H 18 156/75 H 95 05/10/21 07:00 100 H 05/10/21 04:06 36.7 C 106 H 20 146/74 H 96 Laboratory Results Short CBC 05/10/21 Range/Units 08:03 WBC 10.04 (4.8-10.8) K/uL Hgb 13.9 L (14.0-18.0) g/dL Hct 42.3 (42-52) % Plt Count 229 (130-400) K/uL BMP 05/10/21 08:03 Sodium 136 Potassium 3.6 Chloride 105 Carbon Dioxide 25 BUN 12 Creatinine 0.91 Glucose 163 H Calcium 8.7 Urine 05/09/21 Range/Units 16:11 Urine Color Yellow Urine Appearance Clear (Clear) Urine pH 6.0 (4.5-7.5) Ur Specific Ray 1.025 (1.000-1.030) Urine Protein Negative (Negative) Urine Glucose (UA) Negative (Negative) Medications Administered Current Inpatient Medications Acetaminophen (Acetaminophen 325 Mg Tab) 650 mg PO Q4H PRN PRN Reason: Pain or Fever Stop: 06/08/21 17:09 Amphetamine/Dextroamphetamine (Amphetamine Asp/Sulf/Dextramph 20 Mg Tab) 20 mg PO Q24H [facility] Stop: 05/24/21 13:59 Amphetamine/Dextroamphetamine (Amphetamine Asp/Sulf/Dextramph Er 20 Mg Cap) 60 mg PO Q24H [facility] Stop: 05/24/21 08:59 Last Admin: 05/10/21 10:12 Dose: 60 mg Documented by: Duloxetine HCl (Duloxetine Hcl 60 Mg Cap) 120 mg PO DAILY [facility] Stop: 06/09/21 08:59 Last Admin: 05/10/21 08:09 Dose: 120 mg Documented by: Meclizine HCl (Meclizine Hcl 25 Mg Tab) 25 mg PO Q6H PRN PRN Reason: Dizziness or Vertigo Stop: 06/08/21 17:09 Miscellaneous (Biktarvy-Order Awaiting Action) 1 ea N/A QS [facility] Stop: 06/09/21 00:00 Last Admin: 05/10/21 09:43 Dose: Not Given Documented by: Ondansetron HCl (Ondansetron Inj 2 Mg/Ml 2 Ml Vial) 4 mg IV Q6H PRN PRN Reason: Nausea Stop: 06/08/21 17:09 Pantoprazole Sodium (Pantoprazole 40 Mg Tab) 40 mg PO BID [facility] Stop: 06/08/21 20:59 Last Admin: 05/10/21 08:09 Dose: 40 mg Documented by: Prednisone (Prednisone 20 Mg Tab) 60 mg PO DAILY [facility] Stop: 05/14/21 08:59 Last Admin: 05/10/21 08:09 Dose: 60 mg Documented by:
[2021-05-10] MEDS: AMPHETAMINE ASP/SULF/DEXTRAMPH 20 MG TAB PO SCH (14:57)
[2021-05-10] MEDS: DIVALPROEX DELAY RELEASE 250 MG TABEC PO SCH (17:07)
[2021-05-11] MEDS ORDERED: COVID-19 VACC, TRIS(PFIZER)/PF 30 MCG/0.3 ML VIAL IM ONE (09:00)
[2021-05-11] MEDS: AMPHETAMINE ASP/SULF/DEXTRAMPH ER 20 MG CAP PO SCH (09:01)
[2021-05-11] MEDS: DIVALPROEX DELAY RELEASE 250 MG TABEC PO SCH (09:01)
[2021-05-11] MEDS: DULoxetine HCL 60 MG CAP PO SCH (09:01)
[2021-05-11] MEDS: PANTOprazole 40 MG TAB PO SCH (09:01)
[2021-05-11] MEDS: predniSONE 20 MG TAB PO SCH (09:01)
[2021-05-11] MEDS: AMPHETAMINE ASP/SULF/DEXTRAMPH 20 MG TAB PO SCH (13:07)
--- NOTE | 2021-05-11 13:13 | Hospitalist Progress Note ---
Date of Service May 11, 2021 Assessment & Plan (1) Dizziness: Plan: Ongoing dizziness Appreciate neurology input and recommendation Venkat maneuver did not help that much Will try Antivert as needed (2) Ambulatory dysfunction: Plan: Vertigo DDX: vestibular neuritis, BPPV, brain mass Patient is a 40-year-old male with PMH HIV, esophageal stricture, brain mass presented to ER with complaint of intermittent dizziness described as objects spinning and being on "tilt a whirl" x 2-3 weeks. URI symptoms preceded dizziness. Today worse dizziness with N/V, sensation being pulled to right side and difficulty with ambulation. Denies any new medications. In ER MRI brain without acute changes. Labs unremarkable. In ER Was given dexamethasone, meclizine, NSS 500ml and still symptomatic with dizziness and unable to ambulate. Obtain orthostatics-not yet done Start prednisone 60mg daily x 4 days, with plan to taper Neuro checks-remain unremarkable PT eval for possible Venkat maneuver Neurology consult-appreciate input and recommendation (3) Brain mass: Plan: Previously has followed with neurology/neurosurgery at [facility] however now following with neurology at [facility] for brain mass that can't be differentiated - possible meningoma vs schwannoma. Last MRI Brain on 11/2020 with mass left cerebellopontine angle cistern, inferior to and inseparable from the left trigeminal nerve cisternal segment, measuring 0.6 x 1.3 x 0.9 cm Today MRI brain: Compared to the previous studies, there is a stable approximately 12 x 6 x 5 mm mass within the cistern at the cerebellopontine angle on the left. It minimally enhances and is most characteristic of a small meningioma or schwannoma. It again abuts the left 5th cranial nerve with no significant interval change from the previous. Recommended MRI every 3-month as per neurosurgeon in [place] He was strongly advised to keep appointment with the neurosurgeon (4) HIV (human immunodeficiency virus infection): Plan: Follows with ID at [facility] Last labs 11/2020 undetectable Continue Biktarvy (5) ADHD: Plan: Continue dextroamphetamine-amphetamine (6) Esophageal stricture: Plan: Continue PPI DVT Prophylaxis SCDs Follows with Paayl Herrera PA-C for routine care Admission and Anticipated Discharge Date Admission Date: May 09, 2021 Subjective 05/10/2021 The patient was seen and examined in medical telemetry unit He was admitted with dizziness, unsteadiness and history of diplopia Has been feeling much better and denies any symptoms lying in bed 05/11/2021 The patient was seen and examined in medical telemetry unit He wants to go home but he still complains to have some dizziness with ambulation He was advised to take care of him Antivert and Depakote was given by the neurologist Review of Systems Review of Systems: All systems reviewed and are unremarkable except as noted below Neurologic: Dizziness and unsteadiness with ambulation Physical Exam Physical Exam: Lying in bed comfortably Constitutional: well developed, well nourished and + obese; not ill appearing Eyes: PERRL, conjunctivae normal, anicteric sclerae ENMT: external ear and nose normal, oropharynx normal Neck: trachea midline, no thyromegaly Respiratory: no respiratory distress Auscultation: lungs clear to auscultation bilaterally Cardiovascular: Rate/Rhythm: regular rate and regular rhythm; not tachycardic Heart Sounds: normal S1 and normal S2; no murmur Extremities: no edema Gastrointestinal (Abdomen): Inspection/Auscultation: abdomen not distended Percussion/Palpation: abdomen soft; abdomen nontender Musculoskeletal: No acute arthritis in any joint Neurologic: Alert, awake and oriented x3. No focal sensory and motor deficit appreciated Results & Data Results & Data ([facility]) Vital Signs (Past 12 Hours) Vital Signs Temp Pulse Pulse Resp BP Pulse Ox 05/11/21 11:08 36.7 C 81 20 129/80 98 05/11/21 07:24 36.7 C 74 21 137/84 96 05/11/21 07:00 76 05/11/21 02:55 36.6 C 88 20 134/76 94 Medications Administered Current Inpatient Medications Acetaminophen (Acetaminophen 325 Mg Tab) 650 mg PO Q4H PRN PRN Reason: Pain or Fever Stop: 06/08/21 17:09 Amphetamine/Dextroamphetamine (Amphetamine Asp/Sulf/Dextramph 20 Mg Tab) 20 mg PO Q24H [facility] Stop: 05/24/21 13:59 Last Admin: 05/11/21 13:07 Dose: 20 mg Documented by: Amphetamine/Dextroamphetamine (Amphetamine Asp/Sulf/Dextramph Er 20 Mg Cap) 60 mg PO Q24H [facility] Stop: 05/24/21 08:59 Last Admin: 05/11/21 09:01 Dose: 60 mg Documented by: Divalproex Sodium (Divalproex Delay Release 250 Mg Tabec) 250 mg PO DAILY [facility] Stop: 06/09/21 15:59 Last Admin: 05/11/21 09:01 Dose: 250 mg Documented by: Duloxetine HCl (Duloxetine Hcl 60 Mg Cap) 120 mg PO DAILY [facility] Stop: 06/09/21 08:59 Last Admin: 05/11/21 09:01 Dose: 120 mg Documented by: Meclizine HCl (Meclizine Hcl 25 Mg Tab) 25 mg PO Q6H PRN PRN Reason: Dizziness or Vertigo Stop: 06/08/21 17:09 Last Admin: 05/11/21 13:07 Dose: 25 mg Documented by: Miscellaneous (Rosaline-Order Awaiting Action) 1 ea N/A QS [facility] Stop: 06/09/21 00:00 Last Admin: 05/11/21 09:16 Dose: Not Given Documented by: Ondansetron HCl (Ondansetron Inj 2 Mg/Ml 2 Ml Vial) 4 mg IV Q6H PRN PRN Reason: Nausea Stop: 06/08/21 17:09 Pantoprazole Sodium (Pantoprazole 40 Mg Tab) 40 mg PO BID [facility] Stop: 06/08/21 20:59 Last Admin: 05/11/21 09:01 Dose: 40 mg Documented by: Prednisone (Prednisone 20 Mg Tab) 60 mg PO DAILY [facility] Stop: 05/14/21 08:59 Last Admin: 05/11/21 09:01 Dose: 60 mg Documented by:
--- NOTE | 2021-05-12 08:15 | Discharge Summary ---
Date of Service May 12, 2021 Admission HPI Per Admitting Provider Patient is a 40-year-old male with PMH HIV, esophageal stricture, brain mass presented to ER with complaint of dizziness. Patient reports 04/05/2021 and onset of loss of taste and smell, nasal congestion. 04/17/2021 had his first COVID-19 vaccine. Reports the following day started with dizziness described as things spinning around him and being on a "told the world". With associated nausea and vomiting. Patient states 04/30/2021 started with sore throat, nasal congestion, headache. He was seen at PCPs office and had negative influenza and COVID-19 testing at that time. Patient reports congestion has improved. Denies otalgia. He reports chronic sensation of fluid coming from his right ear, denies any change. Patient states intermittent dizziness has continued and today was worse. States this morning woke up and got out of bed and had severe spinning type dizziness with nausea and vomiting. With attempted ambulation he feels like he is being pulled to the right. When driving today had dizziness and double vision, nausea and vomiting and had to ladle puller. [place] [facility] [place] [facility] that can't be differentiated - possible meningoma vs schwannoma. Last MRI Brain on 11/2020 with mass left cerebellopontine angle cistern, inferior to and inseparable from the left trigeminal nerve cisternal segment, measuring 0.6 x 1.3 x 0.9 cm. Denies any falls. Denies syncope, head injury. Denies fever/chills, diaphoresis, diarrhea, MONAE, vision loss, neck pain, CP, SOB, orthopnea, palpitations, cough, sore thro at, choking, otalgia, rhinorrhea, abdominal pain, paresthesias, weakness, extremity weakness, extremity edema, rashes, urinary symptoms. In ER MRI brain without acute changes. Labs unremarkable. Was given dexamethasone, meclizine, NSS 500ml and still symptomatic with dizziness and unable to ambulate. 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 without any increase in size compared with prior exam, history of HIV Discharge Exam Lying in bed comfortably Constitutional well developed, well nourished and + obese; not ill appearing Eyes PERRL, conjunctivae normal, anicteric sclerae ENMT external ear and nose normal, oropharynx normal Neck trachea midline, no thyromegaly Respiratory no respiratory distress Auscultation: lungs clear to auscultation bilaterally Cardiovascular Rate/Rhythm: regular rate and regular rhythm; not tachycardic Heart Sounds: normal S1 and normal S2; no murmur Extremities: no edema Gastrointestinal (Abdomen) Inspection/Auscultation: abdomen not distended Percussion/Palpation: abdomen soft; abdomen nontender Discharge Data Allergies Allergy/AdvReac Type Severity Reaction Status Date / Time ampicillin [From Unasyn] Allergy Severe Lip Unverified 05/09/21 08:18 Swelling sulbactam [From Unasyn] Allergy Severe Lip Unverified 05/09/21 08:18 Swelling naproxen Allergy Mild HEART Verified 05/09/21 08:18 RACED A LITTLE BIT Consultations 05/09/21 13:13 ED Decision to Admit Stat 05/09/21 14:32 Consult Neurology Routine Ordered Studies 05/09/21 08:04 CT head/brain wo con Stat MR brain wo/w con Stat Hospital Course (1) Dizziness: Ongoing dizziness Appreciate neurology input and recommendation Venkat maneuver did not help that much Will try Antivert as needed (2) Ambulatory dysfunction: Vertigo DDX: vestibular neuritis, BPPV, brain mass Patient is a 40-year-old male with PMH HIV, esophageal stricture, brain mass presented to ER with complaint of intermittent dizziness described as objects spinning and being on "tilt a whirl" x 2-3 weeks. URI symptoms preceded dizziness. Today worse dizziness with N/V, sensation being pulled to right side and difficulty with ambulation. Denies any new medications. In ER MRI brain without acute changes. Labs unremarkable. In ER Was given dexamethasone, meclizine, NSS 500ml and still symptomatic with dizziness and unable to ambulate. Obtain orthostatics-not yet done Start prednisone 60mg daily x 4 days, with plan to taper Neuro checks-remain unremarkable PT eval for possible Venkat maneuver Neurology consult-appreciate input and recommendation (3) Brain mass: Previously [place] [facility] [place] [facility] that can't be differentiated - possible meningoma vs schwannoma. Last MRI Brain on 11/2020 with mass left cerebellopontine angle cistern, inferior to and inseparable from the left trigeminal nerve cisternal segment, measuring 0.6 x 1.3 x 0.9 cm Today MRI brain: Compared to the previous studies, there is a stable approximately 12 x 6 x 5 mm mass within the cistern at the cerebellopontine angle on the left. It minimally enhances and is most characteristic of a small meningioma or schwannoma. It again abuts the left 5th cranial nerve with no significant interval change from the previous. Recommended MRI every 3-month as per neurosurgeon in [place] He was strongly advised to keep appointment with the neurosurgeon (4) HIV (human immunodeficiency virus infection): [place] [facility] [place] labs 11/2020 undetectable Continue Biktarvy (5) ADHD: Continue dextroamphetamine-amphetamine (6) Esophageal stricture: Continue PPI DVT Prophylaxis SCDs Follows with Payal Herrera PA-C for routine care Total Time Total Time Spent Total Time Spent (In Minutes): 35 minutes Discharge Plan Discharge Items Patient Disposition: Home - Self-Care Reason For Visit: DIZZINESS Discharge Diagnosis: Ongoing dizziness, 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/schwannoma without any increase in size compared with prior exam, history of HIV Condition on Discharge: Fair Activity: Resume your previous activity Non-emergency contact: Primary Care Provider Call non-emergency contact if: you have any medication questions and your symptoms worsen Follow-up/Referrals: Payal Herrera PA-C [Primary Care Provider] - (Date & Time 05/17/2021 12:20 PM Provider Payal Herrera PA-C [facility] ) Diet: Regular Addtl Attending Provider Instructions: Please take precautions to avoid fall Take your medications as advised Keep appointment with your primary care provider and also specialist in [place] Do not go back to work until being evaluated by your PCP Pending Studies at Discharge: No Stand-Alone Forms: [facility], Work[facility]School Release, Smoking Cessation Medications and DC Order Prescriptions: New divalproex 250 mg Tablet,Delayed Release (Dr/Ec) 250 mg PO DAILY Qty: 30 RF: 0 meclizine 25 mg Tablet 25 mg PO Q6H PRN (Reason: dizziness) Qty: 30 RF: 0 riboflavin (vitamin B2) 400 mg tablet 400 mg PO DAILY Qty: 30 RF: 0 magnesium 200 mg tablet 400 mg PO DAILY Qty: 60 RF: 0 Continued Biktarvy 50-200-25 mg tablet 1 tab PO HS RF: 0 acetaminophen [Tylenol Extra Strength] 500 mg Tablet 1,000 mg PO Q6H PRN (Reason: Pain) RF: 0 dextroamphetamine-amphetamine [Adderall XR] 20 mg capsule,extended release 24hr 20 mg PO QPM RF: 0 sildenafil 50 mg tablet 50 mg PO DAILY PRN (Reason: Erectile Dysfunction) RF: 0 dextroamphetamine-amphetamine 30 mg capsule,extended release 24hr 60 mg PO QAM RF: 0 duloxetine 60 mg capsule,delayed release(DR/EC) 120 mg PO DAILY RF: 0 omeprazole 40 mg Capsule,Delayed Release(Dr/Ec) 40 mg PO BID RF: 0 Discharge Orders: Discharge Order (Routine); Ordered 05/11/21 Ordered By: Fer Cuevas Admission Data Admit Date/Time: 05/09/21 13:49 Attending Provider: Fer Cuevas Admit Provider: Crow Booth Primary Care Provider: Payal Herrera Other Providers: Chalo Harris ; Crow Booth Other Interventions: Discharge Summary Assessment (RN) Last Done: 05/11/21 15:40
== END 2021-05-11 16:30 | disposition home or self-care (01) | DRG 149 ==
LOC: ED 07:05 → SUATTDRO 13:49 → EDINP 13:49 → 2N 19:48

== ENCOUNTER 2021-11-10 20:14 | Inpatient (IN) ==
[2021-11-10 21:46] LABS: Albumin Globulin Ratio 1.1 (0.9-2); Albumin Level 4.2 gm/dl (3.4-5.0); BUN Creatinine Ratio 12.5 (10-20); Bilirubin,Total 0.5 mg/dl (0.2-1.0); Calcium 9.7 mg/dl (8.5-10.1); Est GFR (African American) 93.4 ml/min; Est GFR (Non-African American) 80.6 ml/min; Potassium 4.1 mmol/L (3.5-5.1); Total Protein 8.2 gm/dl (6.0-8.3)
[2021-11-10 21:47] LABS: Basophils # (auto) 0.02 K/uL (0-0.2); Basophils % (auto) 0.2 %; Eosinophils # (auto) 0.26 K/uL (0-0.50); Eosinophils % (auto) 2.6 %; Hematocrit (blood only) 48.4 % (40.1-51.0); Hemoglobin 15.9 g/dl (14.0-18.0); Immature Granulocytes # (auto) 0.04 K/uL (0.00-0.02); Immature Granulocytes % (auto) 0.4 %; Lymphocytes # (auto) 1.82 K/uL (1.2-3.4); Lymphocytes % (auto) 18.5 %; Mean Corpuscular Hemoglobin 28.6 pg (25.0-34.0); Mean Corpuscular Hgb Conc 32.9 g/dL (32.0-36.0); Mean Corpuscular Volume 87.2 fL (80.0-100.0); Mean Platelet Volume 10.2 fL (9.4-12.4); Monocytes # (auto) 0.47 K/uL (0.24-0.82); Monocytes % (auto) 4.8 %; Neutrophils # (auto) 7.23 K/uL (1.4-6.5); Neutrophils % (auto) 73.5 %; Platelet Count 283 K/uL (130-400); RDW Coefficient of Variation 13.2 % (11.5-14.5); RDW Standard Deviation 42.1 fL (36.4-46.3); Red Blood Count 5.55 M/uL (4.63-6.08); White Blood Count 9.84 K/ul (4.8-10.8)
[2021-11-10] MEDS ORDERED: DAPTOmycin 525 MG in SYRINGE 0 ML IV STA (21:59)
[2021-11-10] MEDS ORDERED: SODIUM CHLORIDE 0.9% 1000ML 1,000 ML IV ONE (21:59)
[2021-11-10] MEDS ORDERED: ACETAMINOPHEN 1000 MG/100 ML IV IV STA (21:59)
[2021-11-10] MEDS ORDERED: MoRPHine SULFATE 4 MG/ML 1 ML CARP\\VIAL IV STA (21:59)
[2021-11-10] MEDS ORDERED: CEFEPIME 2,000 MG/20 ML VIAL IV STA (21:59)
[2021-11-10] MEDS ORDERED: MoRPHine SULFATE 4 MG/ML 1 ML CARP\\VIAL IV PRN (21:59)
[2021-11-10] MEDS ORDERED: ONDANSETRON INJ 2 MG/ML 2 ML VIAL IV STA (21:59)
--- NOTE | 2021-11-10 22:17 | Emergency Department Note ---
Impression & Plan Cellulitis, HIV (human immunodeficiency virus infection), Severe right groin pain, Failure of outpatient treatment ED Provider Note NAME: MORENA HOOD AGE: 41 SEX: M : 1980 ARRIVES VIA: Walk-In INFORMANT: [Patient] ED PROVIDER(S): [Abilio Fernandez MD] CHIEF COMPLAINT: Groin pain HISTORY OF PRESENT ILLNESS: The patient is a 41-year-old male who presents with right groin pain and swelling going on for almost a week. Things started as a small bump but then quickly escalated to swelling and redness. He has had a fever. He now has severe pain. The patient states that 5 days ago he went to [place] [facility], he had a CT scan done, he was discharged on Cipro. He has been taking this as prescribed with no relief. The patient states that he noticed some drainage from the right groin he thinks today. There has been no urinary difficulty. No cough or cold or congestion. He states that he is very concerned for a worsening infection despite the Cipro. REVIEW OF SYSTEMS: See HPI for pertinent positives and negatives. A total of ten systems were reviewed and were otherwise negative. PMHx/PSHx: See Below SOCIAL HISTORY: See Below. PHYSICAL EXAM: GENERAL: Patient is in moderate distress from pain. HEENT: No acute trauma, normocephalic atraumatic, mucous membranes moist, no nasal congestion, no scleral icterus. NECK: No stridor, no adenopathy, no meningismus, trachea is midline. LUNGS: Clear to auscultation bilaterally, no wheeze, no rhonchi, breath sounds equal. HEART: Tachycardic, regular rhythm, no murmurs. ABDOMEN: Soft, nontender, bowel sounds positive, no peritonitis. EXTREMITIES: No cyanosis or edema, full range of motion of all the joints without pain or difficulty, no signs for acute trauma. NEUROLOGIC: Oriented x 3, no acute motor or sensory deficits, no focal weakness. SKIN: No jaundice, no diaphoresis. Groin: The patient has firmness and swelling and erythema to the right inguinal region, right groin. The findings are tracking down the right scrotum. There is some clear drainage noted to the inferior aspect of the scrotum. The penis does not appear involved. DIFFERENTIAL DIAGNOSIS: Sepsis, UTI, pneumonia, abscess, hernia, necrotizing fasciitis, metabolic abnormality, electrolyte abnormalities, cardiac sources, cellulitis, bacteremia, as well as other pathologies. EMERGENCY DEPARTMENT COURSE/PROCEDURES: Critical Care Note: I have personally spent 43 minutes of critical care time in the direct management of this patient. This includes bedside care, interpretation of diagnostic studies, and testing, discussion with consultants, patient, and family members, and other required patient management activities. This 43 minutes is in excess of all separately billable procedures. MEDICAL DECISION MAKING: There is no leukocytosis or concerning anemia. There is a normal platelet count. No coagulopathy. No renal failure or significant electrolyte abnormality. Lactic acid level is not elevated making severe sepsis less likely. A few subtle liver enzyme elevations were noted, the bilirubin was normal. Urinalysis did not show evidence for infection. COVID test returned negative. Abdominal and pelvis CT suggests a groin and scrotal cellulitis, there was no abscess. On exam, the patient did have obvious erythema and swelling to the right groin and scrotum. There was some drainage along the ri ght scrotal inferior margin. The patient seemed quite uncomfortable. Patient was aggressively managed, I was concerned about necrotizing fasciitis or abscess. He had failed outpatient management. He was HIV positive. Patient was given IV saline, 1 L. He was given IV Zofran, IV morphine. He re ceived IV daptomycin and IV cefepime. He was given IV Tylenol. The patient feels markedly improved. He is much more comfortable. His heart rate has improved. I did speak with urology, Dr. Quiros, no emergent urologic intervention required at this time. The patient can be seen in consult while he is in the hospital. I spoke with the patient, I talked to case management. The on-call hospitalist was consulted. Past Med/Surg History Medical History ADHD Ankylosing spondylitis lumbar region Brain mass Esophageal stricture Hematuria HIV (human immunodeficiency virus infection) Rheumatoid arthritis Ureterolithiasis Vomiting Surgical History History of cholecystectomy History of esophagogastroduodenoscopy (EGD) History of knee surgery Family History Other Coronary heart disease Hypertension Stroke Denies family history of Kidney disease Social History Smoking Status: Never smoker Second Hand Exposure: No; Do You Dip or Chew Tobacco: No; Hx Alcohol Use: No Hx Substance Use: No Preferred Language: [place] Communication Ability: Effective Visual Impairment: No 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 Beliefs That Will Affect Care: None Current Living Situation: Alone Current Living Situation Comment: lives in behind his mother's house Other Information That Helps Us Care for You: No Feels Safe at Home: Yes Safety Concerns: Feels Safe At This Time Assistive Devices: None Allergies Allergies Allergy/AdvReac Type Severity Reaction Status Date / Time ampicillin [From Unasyn] Allergy Severe Lip Verified 11/10/21 21:59 Swelling sulbactam [From Unasyn] Allergy Severe Lip Verified 11/10/21 21:59 Swelling naproxen Allergy Mild HEART Verified 11/10/21 21:59 RACED A LITTLE BIT Home Meds Home Medications Medication Instructions Recorded Confirmed bictegravir 50 mg-emtricitabine 1 tab PO HS 12/16/19 11/10/21 200 mg-tenofovir alafenam 25 mg tablet (Biktarvy) acetaminophen 500 mg tablet 1,000 mg PO DIRECTED PRN Pain 11/30/20 11/10/21 (Tylenol Extra Strength) dextroamphetamine-amphetamine ER 20 mg PO TID 11/30/20 11/10/21 20 mg 24hr capsule,extend release (Adderall XR) duloxetine 60 mg capsule,delayed 120 mg PO DAILY 05/09/21 11/10/21 release omeprazole 40 mg capsule,delayed 40 mg PO BID 05/09/21 11/10/21 release sildenafil 50 mg tablet 50 mg PO DAILY PRN Erectile 05/09/21 11/10/21 Dysfunction ciprofloxacin HCl 500 mg tablet 500 mg PO BID 11/10/21 11/10/21 Previous Rx's Medication Instructions Recorded meclizine 25 mg tablet 25 mg PO Q6H PRN dizziness #30 tabs 05/11/21 Results & Data (ED) Vital Signs Vital Signs - 24 hr 11/10/21 20:24 11/10/21 22:14 11/11/21 00:00 Temperature 36.6 C Temperature Source Temporal Artery Scan Pulse Rate 134 H Pulse Rate [Apical] 103 H 94 H Respiratory Rate 18 18 15 Respiratory Depth Normal Blood Pressure 120/89 Blood Pressure [Right Arm] 130/80 108/66 Blood Pressure Mean 99 Blood Pressure Mean [Right Arm] 96 80 Pulse Oximetry 97 98 96 Oxygen Delivery Method Room Air Room Air Room Air Sepsis Recent Fever Within 48 Hours No Sepsis New/Unexplained Change in Mental Status N/A Sepsis Action Taken by Nursing No Action Required Home Medications Current Medication List: was personally reviewed by me Laboratory Data Attestation: I reviewed the patient's lab results. Result diagrams: 11/11/21 07:15 11/11/21 07:15 Lab Results 11/10/21 11/10/21 11/10/21 Range/Units 20:49 20:49 22:29 WBC 9.84 (4.8-10.8) K/ul RBC 5.55 (4.63-6.08) M/uL Hgb 15.9 (14.0-18.0) g/dl Hct 48.4 (40.1-51.0) % MCV 87.2 (80.0-100.0) fL MCH 28.6 (25.0-34.0) pg MCHC 32.9 (32.0-36.0) g/dL RDW Std Deviation 42.1 (36.4-46.3) fL RDW Coeff of Juan Jose 13.2 (11.5-14.5) % Plt Count 283 (130-400) K/uL MPV 10.2 (9.4-12.4) fL Immature Gran % (Auto) 0.4 % Neut % (Auto) 73.5 % Lymph % (Auto) 18.5 % Harding % (Auto) 4.8 % Eos % (Auto) 2.6 % Baso % (Auto) 0.2 % Neut # (Auto) 7.23 H (1.4-6.5) K/uL Lymph # (Auto) 1.82 (1.2-3.4) K/uL Harding # (Auto) 0.47 (0.24-0.82) K/uL Eos # (Auto) 0.26 (0-0.50) K/uL Baso # (Auto) 0.02 (0-0.2) K/uL Immature Gran # (Auto) 0.04 H (0.00-0.02) K/uL PT 10.7 (9.0-12.0) Seconds INR 1.0 (0.9-1.1) APTT 26.2 (21.0-31.0) Seconds PTT Ratio 1.0 Sodium 140 (136-145) mmol/L Potassium 4.1 (3.5-5.1) mmol/L Chloride 105 (98-107) mmol/L Carbon Dioxide 28 (21-32) mmol/L Anion Gap 7 (3-11) BUN 14 (6-23) mg/dl Creatinine 1.12 (0.6-1.4) mg/dl Est Cr Clr Drug Dosing 105.0 ml/min Est GFR ( Amer) 93.4 ml/min Est GFR (Non-Af Amer) 80.6 ml/min BUN/Creatinine Ratio 12.5 (10-20) Glucose 101 H (70-99(Fasting)) mg/dl Lactate (0.4-2.0) mmol/L Calcium 9.7 (8.5-10.1) mg/dl Magnesium 2.1 (1.7-2.4) mg/dl Total Bilirubin 0.5 (0.2-1.0) mg/dl AST 41 H (13-39) U/L ALT 51 (7-52) U/L Alkaline Phosphatase 169 H (34-104) U/L Total Protein 8.2 (6.0-8.3) gm/dl Albumin 4.2 (3.4-5.0) gm/dl Globulin 4.0 (2.5-4.0) gm/dl Albumin/Globulin Ratio 1.1 (0.9-2) Urine Color Urine Appearance (Clear) Urine pH (4.5-7.5) Ur Specific [place] (1.000-1.030) Urine Protein (Negative) Urine Glucose (UA) (Negative) Urine Ketones (Negative) Urine Blood (Negative) Urine Nitrite (Negative) Urine Bilirubin (Negative) Urine Urobilinogen (Negative) Ur Leukocyte Esterase (Negative) Urine WBC (Auto) (0-5) /hpf Urine RBC (Auto) (0-4) /hpf U Hyaline Cast (Auto) (0-5) /lpf U Epithel Cells (Auto) (0-5) /lpf Urine Bacteria (Auto) (Negative) SARS-CoV-2, RNA, NAAT (NEGATIVE) 08/06/22 08/06/22 08/07/22 Range/Units 22:29 23:50 00:40 WBC (4.8-10.8) K/ul RBC (4.63-6.08) M/uL Hgb (14.0-18.0) g/dl Hct (40.1-51.0) % MCV (80.0-100.0) fL MCH (25.0-34.0) pg MCHC (32.0-36.0) g/dL RDW Std Deviation (36.4-46.3) fL RDW Coeff of Juan Jose (11.5-14.5) % Plt Count (130-400) K/uL MPV (9.4-12.4) fL Immature Gran % (Auto) % Neut % (Auto) % Lymph % (Auto) % Harding % (Auto) % Eos % (Auto) % Baso % (Auto) % Neut # (Auto) (1.4-6.5) K/uL Lymph # (Auto) (1.2-3.4) K/uL Harding # (Auto) (0.24-0.82) K/uL Eos # (Auto) (0-0.50) K/uL Baso # (Auto) (0-0.2) K/uL Immature Gran # (Auto) (0.00-0.02) K/uL PT (9.0-12.0) Seconds INR (0.9-1.1) APTT (21.0-31.0) Seconds PTT Ratio Sodium (136-145) mmol/L Potassium (3.5-5.1) mmol/L Chloride (98-107) mmol/L Carbon Dioxide (21-32) mmol/L Anion Gap (3-11) BUN (6-23) mg/dl Creatinine (0.6-1.4) mg/dl Est Cr Clr Drug Dosing ml/min Est GFR ( Amer) ml/min Est GFR (Non-Af Amer) ml/min BUN/Creatinine Ratio (10-20) Glucose (70-99(Fasting)) mg/dl Lactate 0.7 (0.4-2.0) mmol/L Calcium (8.5-10.1) mg/dl Magnesium (1.7-2.4) mg/dl Total Bilirubin (0.2-1.0) mg/dl AST (13-39) U/L ALT (7-52) U/L Alkaline Phosphatase (34-104) U/L Total Protein (6.0-8.3) gm/dl Albumin (3.4-5.0) gm/dl Globulin (2.5-4.0) gm/dl Albumin/Globulin Ratio (0.9-2) Urine Color Dark Yellow Urine Appearance Clear (Clear) Urine pH 5.0 (4.5-7.5) Ur Specific [place] > 1.045 H (1.000-1.030) Urine Protein Trace H (Negative) Urine Glucose (UA) Negative (Negative) Urine Ketones Trace H (Negative) Urine Blood Negative (Negative) Urine Nitrite Negative (Negative) Urine Bilirubin Negative (Negative) Urine Urobilinogen Negative (Negative) Ur Leukocyte Esterase Negative (Negative) Urine WBC (Auto) 1-5 (0-5) /hpf Urine RBC (Auto) 0-4 (0-4) /hpf U Hyaline Cast (Auto) 1-5 (0-5) /lpf U Epithel Cells (Auto) 5-10 H (0-5) /lpf Urine Bacteria (Auto) Negative (Negative) SARS-CoV-2, RNA, NAAT NEGATIVE (NEGATIVE) Administered Medications Acetaminophen (Acetaminophen 325 Mg Tab) 650 mg PO Q4H PRN PRN Reason: pain/fever Stop: 12/11/21 02:26 Last Admin: 11/11/21 10:41 Dose: 650 mg Documented By: ELHAM Amphetamine/Dextroamphetamine (Amphetamine Asp/Sulf/Dextramph Er 20 Mg Cap) 20 mg PO TID [facility] Stop: 11/25/21 08:59 Last Admin: 11/11/21 09:14 Dose: 20 mg Documented By: CHIARA Duloxetine HCl (Duloxetine Hcl 60 Mg Cap) 120 mg PO DAILY [facility] Stop: 12/11/21 08:59 Last Admin: 11/11/21 08:29 Dose: 120 mg Documented By: CHIARA Enoxaparin Sodium (Enoxaparin Inj 40 Mg/0.4 Ml Syr) 40 mg SQ Q24H [facility] Stop: 12/11/21 08:59 Last Admin: 11/11/21 08:30 Dose: 40 mg Documented By: CHIARA Hydromorphone HCl (Hydromorphone Inj 0.5 Mg/0.5 Ml Syr) 0.5 mg IV Q3H PRN PRN Reason: Pain Stop: 11/25/21 02:26 Last Admin: 11/11/21 10:40 Dose: 0.5 mg Documented By: Admin: 11/11/21 06:18 Dose: 0.5 mg Documented By: Admin: 11/11/21 02:43 Dose: 0.5 mg Documented By: SUSSY Cefepime HCl 2,000 mg/ Syringe 20 mls @ 5 mls/min IV BID REBECCA; Protocol Stop: 11/18/21 08:59 Last Admin: 11/11/21 08:29 Dose: 5 mls/min Documented By: CHIARA Sodium Chloride (Nss 1000ml) 1,000 mls @ 80 mls/hr IV .[id number] REBECCA Stop: 11/11/21 14:56 Last Admin: 11/11/21 02:43 Dose: 80 mls/hr Documented By: SUSSY Pantoprazole Sodium (Pantoprazole 40 Mg Tab) 40 mg PO BID REBECCA Stop: 12/11/21 08:59 Last Admin: 11/11/21 08:29 Dose: 40 mg Documented By: CHIARA Discontinued Medications Acetaminophen (Acetaminophen 1000 Mg/100 Ml Iv) 1,000 mg IV NOW STA Stop: 11/10/21 22:00 Last Admin: 11/10/21 22:33 Dose: 1,000 mg Documented By: CELE Sodium Chloride (Nss 1000ml) 1,000 mls @ 999 mls/hr IV .Q1H1M ONE Stop: 11/10/21 22:59 Last Infusion: 11/10/21 23:34 Dose: 0 mls/hr Documented By: Admin: 11/10/21 22:33 Dose: 999 mls/hr Documented By: CELE Cefepime HCl (Maxipime) 2,000 mg in 20 mls @ 5 mls/min IV NOW STA; Protocol Stop: 11/10/21 22:02 Last Admin: 11/10/21 22:53 Dose: 5 mls/min Documented By: MARY Daptomycin 525 mg/ Syringe 10.5 mls @ 5.25 mls/min IV NOW STA; Protocol Stop: 11/10/21 22:00 Last Admin: 11/10/21 23:42 Dose: 5.25 mls/min Documented By: MARY Miscellaneous (Biktarvy: Order Awaiting Action) 1 each N/A QS REBECCA Stop: 12/11/21 07:59 Last Admin: 11/11/21 08:16 Dose: Not Given Documented By: CHIARA Morphine Sulfate (Morphine Sulfate 4 Mg/Ml 1 Ml Carp\Vial) 4 mg IV NOW STA Stop: 11/10/21 22:00 Last Admin: 11/10/21 22:33 Dose: 4 mg Documented By: CELE Morphine Sulfate (Morphine Sulfate 4 Mg/Ml 1 Ml Carp\Vial) 4 mg IV Q15M PRN PRN Reason: Pain Stop: 11/24/21 21:58 Last Admin: 11/11/21 01:11 Dose: 4 mg Documented By: MARY Ondansetron HCl (Ondansetron Inj 2 Mg/Ml 2 Ml Vial) 4 mg IV NOW STA Stop: 11/10/21 22:00 Last Admin: 11/10/21 22:33 Dose: 4 mg Documented By: CELE Imaging Data Radiologist's Impression: Abdomen/Pelvis CT 11/10/21 22:[address] WITH IV CONTRAST CT DOSE: 873.59 mGy.cm HISTORY: right groin abscess, fever, drainage TECHNIQUE: Multiaxial CT images of the abdomen and pelvis were performed following the use of intravenous contrast. A dose lowering technique was utilized adhering to the principles of ALARA. COMPARISON STUDY: Abdomen and pelvis CT 11/30/2020. FINDINGS: The lung bases are clear. No pneumoperitoneum. No pneumatosis. No acute fractures within the visualized osseous structures. Prior cholecystectomy. The liver, spleen, adrenal glands, pancreas, and left kidney are unremarkable. There is a 3 mm hypodense lesion within the upper pole of the right kidney which is technically too small to characterize. No hydronephrosis. The main portal vein is patent. No retroperitoneal lymphadenopathy. No pelvic free fluid. The bladder is unremarkable. No bowel wall thickening or obstruction. Normal appendix. Skin thickening, subcutaneous edema, and subcutaneous fat stranding within the right groin/inguinal region extending to the right scrotum. No locula stephenie fluid collections to suggest an abscess. No soft tissue gas identified this time. IMPRESSION: Skin thickening, subcutaneous edema, and subcutaneous fat stranding within the right groin/inguinal region extending to the right scrotum. This likely represents a cellulitis. No loculated fluid collections to suggest an abscess. No soft tissue gas identified this time. ACT 112: Negative or not required by law. Electronically signed by: Cesar Hernandez M.D. 11/11/2021 8:12 AM Abdominal and pelvis CT with contrast: There is subcutaneous edema extending from the right groin to the right scrotum. No discrete abscess identified. Discharge Plan Visit Data Chief Complaint: Groin Pain Stated Complaint: GROIN PAIN, RASH ED Provider: Abilio Fernandez Discharge Problem: Cellulitis, HIV (human immunodeficiency virus infection), Severe right groin pain, Failure of outpatient treatment Patient Disposition: Admitted As Inpatient Condition: Fair Discharge Instructions Interventions: ED Discharge Assessment Last Done: 11/11/21 02:16
[2021-11-10 22:27] LABS: Partial Thromboplastin Time 26.2 Seconds (21.0-31.0); Prothrombin Time 10.7 Seconds (9.0-12.0)
[2021-11-10 22:31] LABS: Magnesium 2.1 mg/dl (1.7-2.4)
[2021-11-11 00:58] LABS: Appearance Urine Clear (Clear); Bacteria Urine Automated Negative (Negative); Bilirubin Urine Negative (Negative); Blood Urine Negative (Negative); Color Urine Dark Yellow; Glucose Urine UA Negative (Negative); Ketones Urine Trace (Negative); Leukocyte Esterase Urine Negative (Negative); Nitrite Urine Negative (Negative); Protein Urine Trace (Negative); RBC Urine Automated 0-4 /hpf (0-4); Specific Gravity Urine > 1.045 (1.000-1.030); Urobilinogen Urine Negative (Negative)
[2021-11-11] MEDS ORDERED: ACETAMINOPHEN 325 MG TAB PO PRN (02:27)
[2021-11-11] MEDS ORDERED: SODIUM CHLORIDE 0.9% 1000ML 1,000 ML IV SCH (02:27)
[2021-11-11] MEDS ORDERED: MECLIZINE HCL 25 MG TAB PO PRN (02:27)
[2021-11-11] MEDS: HYDROmorphone INJ 0.5 MG/0.5 ML SYR IV PRN ×4 (02:43→19:38)
[2021-11-11 07:27] LABS: Basophils # (auto) 0.03 K/uL (0-0.2); Basophils % (auto) 0.3 %; Eosinophils # (auto) 0.38 K/uL (0-0.50); Eosinophils % (auto) 3.8 %; Hematocrit (blood only) 41.8 % (40.1-51.0); Hemoglobin 13.6 g/dl (14.0-18.0); Immature Granulocytes # (auto) 0.06 K/uL (0.00-0.02); Immature Granulocytes % (auto) 0.6 %; Lymphocytes # (auto) 1.94 K/uL (1.2-3.4); Lymphocytes % (auto) 19.3 %; Mean Corpuscular Hemoglobin 28.7 pg (25.0-34.0); Mean Corpuscular Hgb Conc 32.5 g/dL (32.0-36.0); Mean Corpuscular Volume 88.2 fL (80.0-100.0); Mean Platelet Volume 9.7 fL (9.4-12.4); Monocytes # (auto) 0.69 K/uL (0.24-0.82); Monocytes % (auto) 6.9 %; Neutrophils # (auto) 6.93 K/uL (1.4-6.5); Neutrophils % (auto) 69.1 %; Platelet Count 240 K/uL (130-400); RDW Coefficient of Variation 12.9 % (11.5-14.5); RDW Standard Deviation 42.1 fL (36.4-46.3); Red Blood Count 4.74 M/uL (4.63-6.08); White Blood Count 10.03 K/ul (4.8-10.8)
[2021-11-11 07:56] LABS: Calcium 8.3 mg/dl (8.5-10.1); Creatinine Clr Calc Pharmacy 118.3 ml/min; Est GFR (African American) 107.1 ml/min; Est GFR (Non-African American) 92.4 ml/min; Magnesium 1.9 mg/dl (1.7-2.4); Potassium 3.7 mmol/L (3.5-5.1)
--- NOTE | 2021-11-11 08:15 | CT Scan Report ---
ABDOMEN AND PELVIS CT WITH IV CONTRAST CT DOSE: 873.59 mGy.cm HISTORY: right groin abscess, fever, drainage TECHNIQUE: Multiaxial CT images of the abdomen and pelvis were performed following the use of intrave nous contrast. A dose lowering technique was utilized adhering to the principles of ALARA. COMPARISON STUDY: Abdomen and pelvis CT 11/30/2020. FINDINGS: The lung bases are clear. No pneumoperitoneum. No pneumatosis. No acute fractures within th e visualized osseous structures. Prior cholecystectomy. The liver, spleen, adrenal glands, pancreas, and left kidney are unremarkable. There is a 3 mm hypodense lesion within the upper pole of the right kidney which is technically too small to characterize. No hydronephrosis. The main portal vein is pa tent. No retroperitoneal lymphadenopathy. No pelvic free fluid. The bladder is unremarkable. No bowel wall thickening or obstruction. Normal appendix. Skin thickening, subcutaneous edema, and subcutaneo us fat stranding within the right groin/inguinal region extending to the right scrotum. No loculated fluid collections to suggest an abscess. No soft tissue gas identified this time. IMPRESSION: Skin thickening, subcutaneous edema, and subcutaneous fat stranding within the right groin/inguinal r egion extending to the right scrotum. This likely represents a cellulitis. No loculated fluid collect ions to suggest an abscess. No soft tissue gas identified this time. ACT 112: Negative or not required by law. Electronically signed by: Cesar Hernandez M.D. 11/11/2021 8:12 AM
[2021-11-11] MEDS: PANTOprazole 40 MG TAB PO SCH ×2 (08:29→20:52)
[2021-11-11] MEDS: DULoxetine HCL 60 MG CAP PO SCH (08:29)
[2021-11-11] MEDS: CEFEPIME 2,000 MG in SYRINGE 0 ML IV SCH ×2 (08:29→20:52)
--- NOTE | 2021-11-11 08:51 | History and Physical Report ---
DATE OF ADMISSION: 11/11/2021. CHIEF COMPLAINT: Groin pain. HISTORY OF PRESENT ILLNESS: A 41-year-old male with past medical history significant for HIV, esophageal strictures, ankylosing spondylitis on multiple sites in the supine, condyloma acuminata, history of Herpes zoster , history of COVID, history of GERD, history of eosinophilic esophagitis, dysphagia, elevated triglycerides. Presents with groin pain going on for about a week, it is on the right side. He went to [place] [facility] about 5 days ago with groin pain and had CAT scan done and discharged on Cipro, but he is saying the medicine did not do anything. He has significant pain. He is also having on and off fevers. He thought a pimple below the scrotum bursted and was draining, so he came to the ER today. Imaging studies showed no abscess. ER gave cefepime and daptomycin. Urology was notified. Labs look okay. The patient is currently resting comfortably and hemodynamically stable. Denies any headache, no dizziness, no blurred visions. Some ear discomfort in the right ear. No runny nose, no cough, no sore throat, no nausea, no chest pain, no shortness of breath, no abdominal pain. No burning micturition or blood in the urine. Normal bladder and bowel movements. No swelling in the legs. ALLERGIES: UNASYN AND NAPROXEN. PAST MEDICAL HISTORY: As mentioned above. PAST SURGICAL HISTORY: Colonoscopy with endoscopic ultrasound, EGDs multiple, EGD with transendoscopic dilatation, EGD with biopsies, laparoscopic cholecystectomy with cholangiography, left ACL repair. MEDICATIONS: The patient is currently on Tylenol 1000 mg p.o. p.r.n., Biktarvy one tablet p.o. at bedtime, ciprofloxacin 500 mg p.o. b.i.d., Adderall XR 20 mg p.o. t.i.d., duloxetine 20 mg p.o. daily, meclizine 25 mg p.o. q. 6 hours p.r.n., omeprazole 40 mg p.o. b.i.d., Viagra p.r.n. FAMILY HISTORY: Significant for maternal grandmother has arthritis, esophageal disorder, hypertension; maternal grandfather has stroke; father has heart attack. SOCIAL HISTORY: No smoking. Alcohol, rarely. No drug use. REVIEW OF SYSTEMS: As per HPI. Rest of the review of systems is negative. PHYSICAL EXAMINATION: GENERAL: The patient is of moderate build, not in acute distress. VITAL SIGNS: Temperature 36.6, pulse 94, respiratory rate 15, blood pressure 108/66, oxygen 96% on room air. HEENT: Pupils equal, round, and reactive to light. Right ear exam, no erythema or drainage seen. NECK: No JVD. No neck masses seen. CARDIOVASCULAR: S1 and S2 heard. Regular rate and rhythm. No murmur, no gallop. RESPIRATORY SYSTEM: Normal AP diameter. No accessory muscle use. No wheezing, no crackles. ABDOMEN: Soft, bowel sounds present, nontender, no distention. CENTRAL NERVOUS SYSTEM: Cranial nerves II through XII are grossly intact, nonfocal. GENITOURINARY: Erythematous and some swelling seen on the right side of the scrotum and pimple seen below the scrotum. EXTREMITIES: No edema, no erythema. LABORATORY DATA: WBC 9.8, hemoglobin 15.9, hematocrit 48.4, platelets 283. PT 10.7, INR 1, APTT 26.2. Sodium 140, potassium 4.1, chloride 105, bicarbonate 28, BUN 14, creatinine 1.1, serum glucose 101, lactate 0.7, calcium 9.7, magnesium 2.1, total bilirubin 0.5, AST 41, ALT 51, alkaline phosphatase 169. Urinalysis negative. SARS-CoV-2 rapid test negative. IMAGING DATA: CT of the abdomen and pelvis preliminary report, no abscess seen. ASSESSMENT AND PLAN: This is a 41-year-old male with history of human immunodeficiency virus, history of syphilis, history of depression, who presents with scrotal cellulitis. 1. Scrotal cellulitis: Mostly on the right side, a pimple below the scrotum. Outpatient failed treatment with ciprofloxacin. CAT scan, preliminary report, no abscess. Will follow the final report. ER discussed with Urology. He received cefepime and daptomycin in the ER, which will be continued. Will consult urology in the a.m. Pain control. Monitor for response. 2. History of human immunodeficiency virus diagnosed in 2001: Follows with [facility]. On Biktarvy. As per ID notes from July 2021, the patient's virus undetectable. The patient has history of syphilis in 2011, treated; treated for syphilis again in May 2021. Follow up with ID. 3. History of depression: Continue home medications. 4. Gastroesophageal reflux disease: Continue omeprazole. 5. History of esophageal stricture: Status post dilatation. Seems to have current followup with GI. 6. History of brain mass: MRI scan done last admission in May 2021 showed 12 x 6 x 5 mm mass at the cerebellopontine angle on the left side, possible meningioma versus schwannoma . Needs followup with neurosurgeon. 7. Attention deficit hyperactivity disorder: On Adderall. 8. Deep venous thrombosis prophylaxis: Will be placed on Lovenox. DISPOSITION: Closely monitor in the medical floor. PT, OT prior to discharge. Social service to help with discharge planning. Job ID: [id number] [facility] HOSPITALAudra
[2021-11-11] MEDS ORDERED: ENOXAPARIN INJ 40 MG/0.4 ML SYR SQ SCH (09:00)
[2021-11-11] MEDS: AMPHETAMINE ASP/SULF/DEXTRAMPH ER 20 MG CAP PO SCH ×3 (09:14→20:54)
--- NOTE | 2021-11-11 11:09 | Communication Note ---
Date of Service: November 11, 2021 The patient is a 41 year old man with pmh HIV on ART, esophageal strictures, ankylosing spondylitis, GERD who presented for right groin pain and drainage th at has spread to scrotum. He had CT-AP with contrast showing cellulitis extending to scrotum, no abscess, no gas. Has other pustular lesions on arms and trunk (sparse). Concern for monkeypox given increasing prevalence. Started on broad spectrum abx, urology and general surgery consulted. The patient feels ok. Still with right groin pain and drainage. Denies fevers or chills, n/v/d, abdominal pain, chest pain, shortness of breath, cough, dysuria, penile discharge. PHYSICAL EXAMINATION: GENERAL: The patient is of moderate build, not in acute distress. HEENT: Pupils equal, round, and reactive to light. Right ear exam, no erythema or drainage seen. NECK: No JVD. No neck masses seen. CARDIOVASCULAR: S1 and S2 heard. Regular rate and rhythm. No murmur, no gallop. RESPIRATORY SYSTEM: Normal AP diameter. No accessory muscle use. No wheezing, no crackles. ABDOMEN: Soft, bowel sounds present, nontender, no distention. CENTRAL NERVOUS SYSTEM: Cranial nerves II through XII are grossly intact, nonfocal. GENITOURINARY: Erythematous and some swelling seen on the right side of the scrotum and pimple seen below the scrotum with purulent appearing drainage - exquisitely tender to palpation EXTREMITIES: No edema, no erythema. Plan: - unclear etiology of lesions at this time but concern for monkeypox - isolation precautions - CT-AP with contrast without evidence of abscess or gas - started on dapto and cefepime for purulent drainage and cellulitic changes - wound culture sent - blood cultures - urine G&C, serum RPR ordered - urology and general surgery consulted - monitor for now Augusto Morgan MD [facility] Medicine
--- NOTE | 2021-11-11 11:09 | Surgery Consultation ---
Date of Consultation November 11, 2021 Assessment & Plan (1) Cellulitis: right groin agree with abx monitor, may need I&D if does not respond to abx History of Present Illness Attending Physician: Augusto Morgan MD History of Present Illness The patient is a 41-year-old male who presents with right groin pain and swelling going on for almost a week. He noticed a lesion which then began to swell and spread redness. He has had a fever and pain. The patient states that 5 days ago he went to [place] [facility], had a CT scan and was discharged on Cipro. He has been taking this as prescribed with no relief. The patient states that he noticed some drainage from the right groin he thinks today. There has been no urinary symptoms nor cough or SOB. Allergies Allergy/AdvReac Type Severity Reaction Status Date / Time ampicillin [From Unasyn] Allergy Severe Lip Verified 11/10/21 21:59 Swelling sulbactam [From Unasyn] Allergy Severe Lip Verified 11/10/21 21:59 Swelling naproxen Allergy Mild HEART Verified 11/10/21 21:59 RACED A LITTLE BIT Home Medications Medication Instructions Recorded Confirmed Type bictegravir 50 mg-emtricitabine 1 tab PO HS 12/16/19 11/10/21 History 200 mg-tenofovir alafenam 25 mg tablet (Biktarvy) acetaminophen 500 mg tablet 1,000 mg PO DIRECTED PRN Pain 11/30/20 11/10/21 History (Tylenol Extra Strength) dextroamphetamine-amphetamine ER 20 mg PO TID 11/30/20 11/10/21 History 20 mg 24hr capsule,extend release (Adderall XR) duloxetine 60 mg capsule,delayed 120 mg PO DAILY 05/09/21 11/10/21 History release omeprazole 40 mg capsule,delayed 40 mg PO BID 05/09/21 11/10/21 History release sildenafil 50 mg tablet 50 mg PO DAILY PRN Erectile 05/09/21 11/10/21 History Dysfunction meclizine 25 mg tablet 25 mg PO Q6H PRN dizziness #30 tabs 05/11/21 11/10/21 Rx ciprofloxacin HCl 500 mg tablet 500 mg PO BID 11/10/21 11/10/21 History Patient History Medical History (Updated 11/11/21 @ 11:10 by Braden Menendez MD) ADHD Ankylosing spondylitis lumbar region Brain mass Esophageal stricture Hematuria HIV (human immunodeficiency virus infection) Rheumatoid arthritis Ureterolithiasis Vomiting Surgical History (Updated 05/09/21 @ 15:04 by Emily Logan PA-C) History of cholecystectomy History of esophagogastroduodenoscopy (EGD) History of knee surgery Family History (Updated 05/09/21 @ 15:03 by Emily Logan PA-C) Other Coronary heart disease Hypertension Stroke Denies family history of Kidney disease Social History Smoking Status: Never smoker Second Hand Exposure: No; Do You Dip or Chew Tobacco: No; Hx Alcohol Use: No Hx Substance Use: No Preferred Language: Kazakh Communication Ability: Effective Visual Impairment: No Limitations Cad Specialist Required: No Beliefs That Will Affect Care: None Current Living Situation: Alone Current Living Situation Comment: lives in RV behind his mother's house Other Information That Helps Us Care for You: No Feels Safe at Home: Yes Safety Concerns: Feels Safe At This Time Assistive Devices: None Review of Systems Constitutional: + fever; no chills, no sweats and no body aches Eyes: no problem reported Ear, Nose, Mouth, Throat: no problem reported Respiratory: no cough and no dyspnea Cardiovascular: no chest pain Gastrointestinal: no abdominal pain, no nausea, no vomiting and no change in bowel habits Genitourinary: no dysuria Musculoskeletal: no back pain Integumentary: + rash (right arm) and + problem reported (swelling and increasing reddness right groin, some drainage) Neurologic: no localized weakness and no generalized weakness Psychiatric: no behavioral changes Physical Exam Constitutional: WD/WN, vitals as above Eyes: PERRL, conjunctivae normal, anicteric sclerae ENMT: external ear and nose normal, oropharynx normal Neck: trachea midline Respiratory: normal respiratory effort, lungs clear to auscultation Cardiovascular: RRR, no murmur, no edema Gastrointestinal (Abdomen): Inspection/Auscultation: abdomen normal to inspection and normal bowel sounds; abdomen not distended Percussion/Palpation: abdomen soft; abdomen nontender, no guarding and abdomen not rigid Musculoskeletal: Head/Neck/Chest: normocephalic and head atraumatic Skin: + rash and + ecchymosis (swelling right groin, no obvious fluctuance but some drainage) Results & Data ([facility]) Vital Signs (Past 12 Hours) Vital Signs Temp Pulse Pulse Pulse Resp BP Pulse Ox 11/11/21 10:24 36.8 C 91 H 14 104/62 96 11/11/21 03:00 11/11/21 03:00 36.5 C 90 18 167/98 H 97 11/11/21 02:27 36.5 C 90 18 167/98 H 97 11/11/21 00:00 94 H 15 108/66 96 O2 Del Method 11/11/21 10:24 Room Air 11/11/21 03:00 Room Air 11/11/21 03:00 Room Air 11/11/21 02:27 Room Air 11/11/21 00:00 Room Air Diagnostic Findings ABDOMEN AND PELVIS CT WITH IV CONTRAST CT DOSE: 873.59 mGy.cm HISTORY: right groin abscess, fever, drainage TECHNIQUE: Multiaxial CT images of the abdomen and pelvis were performed following the use of intravenous contrast. A dose lowering technique was utili zed adhering to the principles of ALARA. COMPARISON STUDY: Abdomen and pelvis CT 11/30/2020. FINDINGS: The lung bases are clear. No pneumoperitoneum. No pneumatosis. No acute fractures within the visualized osseous structures. Prior cholecystectomy. The liver, spleen, adrenal glands, pancreas, and left kidney are unremarkable. There is a 3 mm hypodense lesion within the upper pole of the right kidney which is technically too small to characterize. No hydronephrosis. The main portal vein is patent. No retroperitoneal lymphadenopathy. No pelvic free fluid. The bladder is unremarkable. No bowel wall thickening or obstruction. Normal appendix. Skin thickening, subcutaneous edema, and subcutaneous fat stranding within the right groin/inguinal region extending to the right scrotum. No loculated fluid collections to suggest an abscess. No soft tissue gas identified this time. IMPRESSION: Skin thickening, subcutaneous edema, and subcutaneous fat stranding within the right groin/inguinal region extending to the right scrotum. This likely represents a cellulitis. No loculated fluid collections to suggest an abscess. No soft tissue gas identified this time.
--- NOTE | 2021-11-11 11:22 | Urology Consultation ---
Date of Consultation November 11, 2021 Assessment & Plan (1) Cellulitis: (2) HIV (human immunodeficiency virus infection): (3) Scrotal swelling: Plan Patient with cellultitis and drainage with significant scrotal swelling likely due to cutaneous infection. History of HIV with previous other significant infectious issues. Follwed with infectious disease in past. Patient failed outpatient Cipro. Did not have other abx better for skin such as bactrim. Has not improved and now on broad spectrum IV abx. Drainage improving. Labs stable. No septic issues. Did have some tachycardia and mild hypotension. But stablizing. Plan to continue with supportive care. Continue abx until culture finalize. Patient may benefit from repeat cultures including blood culture. Recommend supportive care. Recommend wound care management if patient having issues doing self care with bandage changes. Imaging completed. Reviewed and interpreted by myself. No sign of abscess formation. Significant cellulitis. Likely combination of edema. Labs reviewed. Stablizing with improving white count. Followup with Dr. العراقي for further monitoring. History of Present Illness Attending Physician: Augusto Morgan MD History of Present Illness New consultation for patient with scrotal swelling, cellulitis, drainage, discomfort, and ill feelings. Patient developed increasing issues with pain and swelling of scrotum. Increasing onset of pain from scrotum and groin going into flank going down and radiating deep in waves comes and goes. Can be se verely bothersome at times. Started to have drainage from wound and cellulitis. Improved some of discomfort but still significant. Had been seen at [facility] and placed on CIPRO and got worse after starting. Discussed and reviewed patient's family history for any history of issues, infections, and disease. Also, discussed patient's medical/surgery history especially related to any history of urinary issues or stone disease. Has history of stones. Previously followed with Dr. العراقي. Has complex infection history. HIV with previous other infectious issues. Patient was admitted and is undergoing observation with broad spectrum IV antibiotics. Allergies Allergy/AdvReac Type Severity Reaction Status Date / Time ampicillin [From Unasyn] Allergy Severe Lip Verified 11/10/21 21:59 Swelling sulbactam [From Unasyn] Allergy Severe Lip Verified 11/10/21 21:59 Swelling naproxen Allergy Mild HEART Verified 11/10/21 21:59 RACED A LITTLE BIT Home Medications Medication Instructions Recorded Confirmed Type bictegravir 50 mg-emtricitabine 1 tab PO HS 12/16/19 11/10/21 History 200 mg-tenofovir alafenam 25 mg tablet (Biktarvy) acetaminophen 500 mg tablet 1,000 mg PO DIRECTED PRN Pain 11/30/20 11/10/21 History (Tylenol Extra Strength) dextroamphetamine-amphetamine ER 20 mg PO TID 11/30/20 11/10/21 History 20 mg 24hr capsule,extend release (Adderall XR) duloxetine 60 mg capsule,delayed 120 mg PO DAILY 05/09/21 11/10/21 History release omeprazole 40 mg capsule,delayed 40 mg PO BID 05/09/21 11/10/21 History release sildenafil 50 mg tablet 50 mg PO DAILY PRN Erectile 05/09/21 11/10/21 History Dysfunction meclizine 25 mg tablet 25 mg PO Q6H PRN dizziness #30 tabs 05/11/21 11/10/21 Rx ciprofloxacin HCl 500 mg tablet 500 mg PO BID 11/10/21 11/10/21 History Patient History Medical History ADHD Ankylosing spondylitis lumbar region Brain mass Esophageal stricture Hematuria HIV (human immunodeficiency virus infection) Rheumatoid arthritis Ureterolithiasis Vomiting Surgical History History of cholecystectomy History of esophagogastroduodenoscopy (EGD) History of knee surgery Family History Other Coronary heart disease Hypertension Stroke Denies family history of Kidney disease Social History Smoking Status: Never smoker Second Hand Exposure: No; Do You Dip or Chew Tobacco: No; Hx Alcohol Use: No Hx Substance Use: No Preferred Language: Kosovan Communication Ability: Effective Visual Impairment: No Limitations Linen Controller Required: No Beliefs That Will Affect Care: None Current Living Situation: Alone Current Living Situation Comment: lives in RV behind his mother's house Other Information That Helps Us Care for You: No Feels Safe at Home: Yes Safety Concerns: Feels Safe At This Time Assistive Devices: None Review of Systems Review of Systems: All systems reviewed & are unremarkable except as noted in HPI & below Physical Exam Physical Exam: General: Alert and oriented x 3 in no acute distress. Patient is well nourished and well kept. HEENT: Normocephalic Atraumatic. Inspection normal. Cranial Nerves 2-12 Grossly intact. Nares are clear. Neck is supple. Normal inspection of face. Normal inspection of neck. Neurologic: No deficits on inspection. Baseline for motor function and sensory. Psychologic: Normal affect. Respiratory: Nonlabored. No use of accessory muscles. No tachypnea or dyspnea. Cardiovascular: No tachycardia Skin: [place] and Dry. No rashes or visible lesions. Extremities: Moving without issues. No motor deficits on inspection Lymphatics: No edema Abdomen: Soft Non-distended. No acites. No rebound or guarding. Results & Data ([facility]) Vital Signs (Past 12 Hours) Vital Signs Temp Pulse Pulse Pulse Resp BP Pulse Ox 11/11/21 10:24 36.8 C 91 H 14 104/62 96 11/11/21 03:00 11/11/21 03:00 36.5 C 90 18 167/98 H 97 11/11/21 02:27 36.5 C 90 18 167/98 H 97 11/11/21 00:00 94 H 15 108/66 96 O2 Del Method 11/11/21 10:24 Room Air 11/11/21 03:00 Room Air 11/11/21 03:00 Room Air 11/11/21 02:27 Room Air 11/11/21 00:00 Room Air PG Care Time/CCT Total # of Minutes Spent Total Time Spent with Patient: Total time spent is greater than 50% in coordination of care (as documented) at patient's floor/unit and/or counseling patient: Coding Level of Care Code 56018 Inpt Consult Level 5 Diagnoses Cellulitis L03.90 HIV (human immunodeficiency virus infection) B20 Scrotal swelling N50.89
[2021-11-11] MEDS: oxyCODONE HCL IR 5 MG TAB (IMMEDIATE RELEASE) PO PRN (14:31)
[2021-11-11] MEDS ORDERED: DAPTOmycin 325 MG in SYRINGE 0 ML IV SCH (21:00)
[2021-11-11] MEDS ORDERED: BIKTARVY 50-200-25 MG PO SCH (21:00)
[2021-11-11] MEDS ORDERED: ZOLPIDEM TARTRATE 5 MG TAB PO PRN (22:51)
--- NOTE | 2021-11-12 08:27 | Hospitalist Progress Note ---
Date of Service November 12, 2021 Assessment & Plan (1) Cellulitis: Plan: - unclear etiology of lesions at this time but concern for monkeypox as well as cellulitis vs superimposed infection on vesicular rash - isolation precautions - CT-AP with contrast without evidence of abscess or gas - started on dapto and cefepime for purulent drainage and cellulitic changes - wound culture - growing Staph spp - will dc cefepime for now, deescalate dapto pending identification - blood cultures NGTD - urine G&C, serum RPR ordered - urology and general surgery consulted - monitor for now on abx (2) HIV (human immunodeficiency virus infection): Plan: - has been well controlled in the past - patient on Biktarvy and has not missed doses - CD4 and VL pending (3) Brain mass: Plan: - has been followed as outpatient nad last admission 05/2021 - possible meningioma vs schwannoma - no neurologic symptoms at this time - advised to follow up with his neurology team at [facility] (4) Ankylosing spondylitis lumbar region: Plan: - appears to be stable disease - monitor for pain - NSAIDs as needed (5) Esophageal stricture: Plan: - follows with GI for periodic dilations - no symptoms at this time Plan DVT PPx: lovenox - holding due to possible I/D by surgery Full Code Augusto Morgan MD [facility] Medicine Admission and Anticipated Discharge Date Admission Date: November 11, 2021 Subjective The patient is a 41 year old man with pmh HIV on ART, esophageal strictures, ankylosing spondylitis, GERD who presented for right groin pain and drainage that has spread to scrotum. He had CT-AP with contrast showing cellulitis ext ending to scrotum, no abscess, no gas. Has other pustular lesions on arms and trunk (sparse). Concern for monkeypox given increasing prevalence, ID consulted. Started on broad spectrum abx, urology and general surgery consulted. The patient feels better. Still with right groin pain and drainage but much improved. Denies fevers or chills, n/v/d, abdominal pain, chest pain, shortness of breath, cough, dysuria, penile discharge. Review of Systems Review of Systems: All systems reviewed & are unremarkable except as noted in Subjective Physical Exam Physical Exam: GENERAL: The patient is of moderate build, not in acute distress. HEENT: Pupils equal, round, and reactive to light. Right ear exam, no erythema or drainage seen. NECK: No JVD. No neck masses seen. CARDIOVASCULAR: S1 and S2 heard. Regular rate and rhythm. No murmur, no gallop. RESPIRATORY SYSTEM: Normal AP diameter. No accessory muscle use. No wheezing, no crackles. ABDOMEN: Soft, bowel sounds present, nontender, no distention. CENTRAL NERVOUS SYSTEM: Cranial nerves II through XII are grossly intact, nonfocal. GENITOURINARY: Erythematous and some swelling seen on the right side of the scrotum and pimple seen below the scrotum with purulent appearing drainage - exquisitely tender to palpation EXTREMITIES: No edema, no erythema. Results & Data Results & Data ([facility]) Vital Signs (Past 12 Hours) Vital Signs Temp Pulse Resp BP Pulse Ox O2 Del Method 11/12/21 08:04 37.1 C 81 19 148/94 H 95 Room Air 11/11/21 23:07 37.0 C 90 16 136/88 97 Room Air Medications Administered Current Inpatient Medications Acetaminophen (Acetaminophen 325 Mg Tab) 650 mg PO Q4H PRN PRN Reason: pain/fever Stop: 12/11/21 02:26 Last Admin: 11/11/21 10:41 Dose: 650 mg Amphetamine/Dextroamphetamine (Amphetamine Asp/Sulf/Dextramph Er 20 Mg Cap) 20 mg PO TID REBECCA Stop: 11/25/21 08:59 Last Admin: 11/11/21 20:54 Dose: Not Given Bictegravir/Emtricitabine/Tenofovir (Biktarvy 50-200-25 Mg) 1 each PO HS REBECCA Stop: 12/11/21 20:59 Last Admin: 11/11/21 20:52 Dose: 1 each Duloxetine HCl (Duloxetine Hcl 60 Mg Cap) 120 mg PO DAILY REBECCA Stop: 12/11/21 08:59 Last Admin: 11/11/21 08:29 Dose: 120 mg Enoxaparin Sodium (Enoxaparin Inj 40 Mg/0.4 Ml Syr) 40 mg SQ Q24H REBECCA Stop: 12/11/21 08:59 Last Admin: 11/11/21 08:30 Dose: 40 mg Hydromorphone HCl (Hydromorphone Inj 0.5 Mg/0.5 Ml Syr) 0.5 mg IV Q3H PRN PRN Reason: Pain Stop: 11/25/21 02:26 Last Admin: 11/11/21 19:38 Dose: 0.5 mg Cefepime HCl 2,000 mg/ Syringe 20 mls @ 5 mls/min IV BID REBECCA; Protocol Stop: 11/18/21 08:59 Last Admin: 11/11/21 20:52 Dose: 5 mls/min Daptomycin 325 mg/ Syringe 6.5 mls @ 3.25 mls/min IV Q24H REBECCA; Protocol Stop: 11/18/21 20:59 Last Admin: 11/11/21 20:53 Dose: 3.25 mls/min Meclizine HCl (Meclizine Hcl 25 Mg Tab) 25 mg PO Q6H PRN PRN Reason: dizziness Stop: 12/11/21 02:26 Oxycodone HCl (Oxycodone Hcl Ir 5 Mg Tab (Immediate Release)) 5 mg PO Q4H PRN PRN Reason: Moderate Pain Stop: 11/25/21 06:34 Last Admin: 11/11/21 14:31 Dose: 5 mg Pantoprazole Sodium (Pantoprazole 40 Mg Tab) 40 mg PO BID REBECCA Stop: 12/11/21 08:59 Last Admin: 11/11/21 20:52 Dose: 40 mg Zolpidem Tartrate (Zolpidem Tartrate 5 Mg Tab) 5 mg PO HS PRN PRN Reason: Sleep Stop: 12/11/21 22:50 Last Admin: 11/11/21 23:04 Dose: 5 mg (1) Cellulitis Site of cellulitis: other site Qualified Code(s): L03.818 - Cellulitis of other sites (2) HIV (human immunodeficiency virus infection) HIV symptom status: unspecified Qualified Code(s): B20 - Human immunodeficiency virus [HIV] disease
[2021-11-12 08:29] LABS: Basophils # (auto) 0.03 K/uL (0-0.2); Basophils % (auto) 0.3 %; Eosinophils # (auto) 0.35 K/uL (0-0.50); Eosinophils % (auto) 3.9 %; Hematocrit (blood only) 43.1 % (40.1-51.0); Hemoglobin 14.2 g/dl (14.0-18.0); Immature Granulocytes # (auto) 0.03 K/uL (0.00-0.02); Immature Granulocytes % (auto) 0.3 %; Lymphocytes # (auto) 1.86 K/uL (1.2-3.4); Lymphocytes % (auto) 20.9 %; Mean Corpuscular Hemoglobin 28.4 pg (25.0-34.0); Mean Corpuscular Hgb Conc 32.9 g/dL (32.0-36.0); Mean Corpuscular Volume 86.2 fL (80.0-100.0); Monocytes # (auto) 0.49 K/uL (0.24-0.82); Monocytes % (auto) 5.5 %; Neutrophils # (auto) 6.12 K/uL (1.4-6.5); Neutrophils % (auto) 69.1 %; Platelet Count 272 K/uL (130-400); RDW Coefficient of Variation 12.5 % (11.5-14.5); RDW Standard Deviation 39.2 fL (36.4-46.3); White Blood Count 8.88 K/ul (4.8-10.8)
[2021-11-12] MEDS: AMPHETAMINE ASP/SULF/DEXTRAMPH ER 20 MG CAP PO SCH ×2 (08:33→13:06)
[2021-11-12] MEDS: DULoxetine HCL 60 MG CAP PO SCH (08:34)
[2021-11-12] MEDS: PANTOprazole 40 MG TAB PO SCH (08:34)
[2021-11-12] MEDS: CEFEPIME 2,000 MG in SYRINGE 0 ML IV SCH (08:34)
[2021-11-12 08:50] LABS: BUN Creatinine Ratio 10.8 (10-20); Est GFR (African American) 104.6 ml/min; Est GFR (Non-African American) 90.2 ml/min; Magnesium 1.9 mg/dl (1.7-2.4); Phosphorus 3.2 mg/dl (2.5-4.9); Potassium 3.8 mmol/L (3.5-5.1)
[2021-11-12] MEDS: oxyCODONE HCL IR 5 MG TAB (IMMEDIATE RELEASE) PO PRN (10:48)
[2021-11-12] MEDS: HYDROmorphone INJ 0.5 MG/0.5 ML SYR IV PRN (13:06)
--- NOTE | 2021-11-12 15:32 | Surgery Progress Note ---
Date of Service November 12, 2021 Assessment & Plan (1) Cellulitis: Plan: right groin agree with abx monitor, may need I&D if does not respond to abx 11/12/2021 3:29PM, Dr. Cronin right groin cellulitis, plan, recommend to transfer [facility], consult infection disease, for further diagnosis and treatment,pt agrees with the plan, Admission and Anticipated Discharge Date Admission Date: November 11, 2021 Subjective The patient is a 41 year old man with pmh HIV on ART, esophageal strictures, ankylosing spondylitis, GERD who presented for right groin pain and drainage that has spread to scrotum. He had CT-AP with contrast showing cellulitis extending to scrotum, no abscess, no gas. Has other pustular lesions on arms and trunk (sparse). Concern for monkeypox given increasing prevalence, ID consulted. Started on broad spectrum abx, urology and general surgery consulted. The patient feels better. Still with right groin pain and drainage but much improved. Denies fevers or chills, n/v/d, abdominal pain, chest pain, shortness of breath, cough, dysuria, penile discharge. 11/12/2021 3:26PM, Dr. Cronin F/U right groin cellulitis, pt is stable, T 37.1, Review of Systems Constitutional: + fever; no chills, no sweats and no body aches Eyes: no problem reported Ear, Nose, Mouth, Throat: no problem reported Respiratory: no cough and no dyspnea Cardiovascular: no chest pain Gastrointestinal: no abdominal pain, no nausea, no vomiting and no change in bowel habits Genitourinary: no dysuria Musculoskeletal: no back pain Integumentary: + rash (right arm) and + problem reported (swelling and increasing reddness right groin, some drainage) Neurologic: no localized weakness and no generalized weakness Psychiatric: no behavioral changes Physical Exam Constitutional: WD/WN, vitals as above Eyes: PERRL, conjunctivae normal, anicteric sclerae Neck: trachea midline, no thyromegaly Respiratory: normal respiratory effort, lungs clear to auscultation Cardiovascular: RRR, no murmur, no edema Gastrointestinal (Abdomen): normal bowel sounds, soft, nontender, no hepatosplenomegaly Skin: some redness at right groin, mild tenderness, small amount drainage at right groin area, Neurologic: patellar DTR's 2+ bilat, sensation intact Psychiatric: A+Ox3, euthymic affect Results & Data ([facility]) Vital Signs (Past 12 Hours) Vital Signs Temp Pulse Resp BP Pulse Ox O2 Del Method 11/12/21 08:04 37.1 C 81 19 148/94 H 95 Room Air Laboratory Results Abnormal lab results 11/12/21 11/12/21 Range/Units 07:35 07:35 Immature Gran # (Auto) 0.03 H (0.00-0.02) K/uL Sodium 135 L (136-145) mmol/L
--- NOTE | 2021-11-12 17:48 | Discharge Summary ---
Date of Service November 12, 2021 Admission Exam Per Admitting Provider GENERAL: The patient is of moderate build, not in acute distress. HEENT: Pupils equal, round, and reactive to light. Right ear exam, no erythema or drainage seen. NECK: No JVD. No neck masses seen. CARDIOVASCULAR: S1 and S2 heard. Regular rate and rhythm. No murmur, no gallop. RESPIRATORY SYSTEM: Normal AP diameter. No accessory muscle use. No wheezing, no crackles. ABDOMEN: Soft, bowel sounds present, nontender, no distention. CENTRAL NERVOUS SYSTEM: Cranial nerves II through XII are grossly intact, nonfocal. GENITOURINARY: Erythematous and some swelling seen on the right side of the scrotum and pimple seen below the scrotum with purulent appearing drainage - exquisitely tender to palpation EXTREMITIES: No edema, no erythema. Principal Diagnosis cellulitis Discharge Exam GENERAL: The patient is of moderate build, not in acute distress. HEENT: Pupils equal, round, and reactive to light. Right ear exam, no erythema or drainage seen. NECK: No JVD. No neck masses seen. CARDIOVASCULAR: S1 and S2 heard. Regular rate and rhythm. No murmur, no gallop. RESPIRATORY SYSTEM: Normal AP diameter. No accessory muscle use. No wheezing, no crackles. ABDOMEN: Soft, bowel sounds present, nontender, no distention. CENTRAL NERVOUS SYSTEM: Cranial nerves II through XII are grossly intact, nonfo teagan. GENITOURINARY: Erythematous and some swelling seen on the right side of the scrotum and pimple seen below the scrotum with purulent appearing drainage - still present but much improved EXTREMITIES: No edema, no erythema. Discharge Data Allergies Allergy/AdvReac Type Severity Reaction Status Date / Time ampicillin [From Unasyn] Allergy Severe Lip Verified 11/10/21 21:59 Swelling sulbactam [From Unasyn] Allergy Severe Lip Verified 11/10/21 21:59 Swelling naproxen Allergy Mild HEART Verified 11/10/21 21:59 RACED A LITTLE BIT Consultations 11/10/21 23:56 ED Decision to Admit Stat 11/11/21 08:00 Consult Urology Routine 11/11/21 09:19 Consult General Surgery Routine 11/12/21 08:35 Consult Infectious Diseases Routine Ordered Studies 11/10/21 22:11 CT Abd and Pelvis [CT abd pelvis IV con only] Urgent Hospital Course (1) Cellulitis: - unclear etiology of lesions at this time but concern for monkeypox as well as cellulitis vs superimposed infection on vesicular rash - isolation precautions - CT-AP with contrast without evidence of abscess or gas - started on dapto and cefepime for purulent drainage and cellulitic changes - wound culture - growing Staph spp - will dc cefepime for now, deescalate dapto pending identification - blood cultures NGTD - urine G&C, serum RPR ordered - urology and general surgery consulted - no I/D - discharge on PO abx and PCP follow up to ensure resolution (2) HIV (human immunodeficiency virus infection): - has been well controlled in the past - patient on Biktarvy and has not missed doses - CD4 and VL pending (3) Brain mass: - has been followed as outpatient nad last admission 05/2021 - possible meningioma vs schwannoma - no neurologic symptoms at this time - advised to follow up with his neurology team at [facility] (4) Ankylosing spondylitis lumbar region: - appears to be stable disease - monitor for pain - NSAIDs as needed (5) Esophageal stricture: - follows with GI for periodic dilations - no symptoms at this time Plan DVT PPx: lovenox Full Code Augusto Morgan MD [facility] Medicine Total Time Total Time Spent Total Time Spent (In Minutes): 15 Total Time Includes: Examination of the Patient, Discharge Planning and Medication Reconciliation Discharge Plan Discharge Items Patient Disposition: Home - Self-Care Reason For Visit: GROIN PAIN Discharge Diagnosis: cellulitis Condition on Discharge: Fair Activity: Resume your previous activity Non-emergency contact: Primary Care Provider and Specialist Call non-emergency contact if: you have any medication questions, your symptoms worsen, your pain is not controlled and you have a fever Follow-up/Referrals: Payal Herrera PA-C [Primary Care Provider] - Chemo Arrington DO [Physician] - Diet: Heart Healthy Addtl Attending Provider Instructions: You were admitted for cellulitis of your groin that extended to your scrotum. You were started on IV antibiotics with good response. CT of your pelvis showed no evidence of abscess despite drainage and the surgical team did not feel like absces incision and drainage was necessary at this time. You also had lesions that were concerning for monkeypox and we sent the diagnostic test but it is still pending. You were be alerted if your results are positive, they appeared to be resolving by time of presentation beside the cellulitis change, which may have been unrelated. You should follow up with your primary care doctor to ensure continued improvement and resolution of your cellulitis and you will likely get a referral from your primary for Infectious diseases if the other rash should persistent or return. You should finish a 7 day course of antibiotics with Bactrim 1 tab 2x/day. Pending Studies at Discharge: Yes (monkey pox) Stand-Alone Forms: My [facility], Smoking Cessation Medications and DC Order Prescriptions: New sulfamethoxazole-trimethoprim [Bactrim DS] 800-160 mg tablet 1 tab PO BID 7 Days Qty: 14 0RF oxycodone-acetaminophen [Percocet] 5-325 mg tablet 1 tab PO Q8H PRN (Reason: severe pain) Qty: 5 0RF Continued Biktarvy 50-200-25 mg tablet 1 tab PO HS acetaminophen [Tylenol Extra Strength] 500 mg Tablet 1,000 mg PO DIRECTED PRN (Reason: Pain) dextroamphetamine-amphetamine [Adderall XR] 20 mg capsule,extended release 24hr 20 mg PO TID sildenafil 50 mg tablet 50 mg PO DAILY PRN (Reason: Erectile Dysfunction) duloxetine 60 mg capsule,delayed release(DR/EC) 120 mg PO DAILY Rx Instructions: takes 2 tabs of 60mg daily omeprazole 40 mg Capsule,Delayed Release(Dr/Ec) 40 mg PO BID meclizine 25 mg Tablet 25 mg PO Q6H PRN (Reason: dizziness) Qty: 30 0RF Discontinued ciprofloxacin HCl 500 mg Tablet 500 mg PO BID Rx Instructions: STARTED 11/05/21 FOR 10 DAYS. Discharge Orders: Discharge Order (Routine); Ordered 11/12/21 Ordered By: Augusto Morgan Admission Data Admit Date/Time: 11/11/21 00:57 Attending Provider: Augusto Morgan Admit Provider: Jordy Brewer Primary Care Provider: Payal Herrera Other Providers: Jordy Brewer ; Earl Quiros ; Braden Menendez ; Billy Bull ; Man Dobbins ; Dwight Walker I. ; Nghia Rutherford II ; Griselda Perez ; Antonino Rain ; Chemo Arrington Other Interventions: Discharge Summary Assessment (RN) Last Done: 11/12/21 17:42
[2021-11-13 00:27] LABS: Rapid Plasma Reagin Reactive (Nonreactive)
[2021-11-15 16:32] LABS: HIV 1 RNA PCR Copies/ML <20 DETECTED copies/mL (NOT DETECTED); HIV-1 RNA Log Copies/mL <1.30 DETECTED (NOT DETECTED); LSP % Cells Analyzed CD4 37 % (30-61); LSP Absolute Ct CD4 741 cells/uL (490-1740); LSP Lymphocytes Absolute 1998 cells/uL (850-3900)
== END 2021-11-12 18:04 | disposition home or self-care (01) | DRG 728 ==
LOC: ED 20:14 → 3N 11-11 00:57 → 2W 11-11 09:33